=== PATIENT | male | born 1980 | race Caucasian/White ===

== ENCOUNTER 2016-11-30 02:59 | Inpatient (IN) | payer MEDICAID, OTHER ==
[~2016-11-30] VITALS: Ht 175.3 cm; Wt 63.6 kg
[2016-11-30] VITALS (10 sets, daily range): BP systolic 135–149; BP diastolic 87; PULSE 98–113; RESP 20–26; TEMP 99.6; Ht 175.3 cm; Wt 63.6 kg
[2016-11-30] MEDS ORDERED: ACETAMINOPHEN 650 MG SUPP PR STA (03:16)
--- NOTE | 2016-11-30 04:33 | ERD ---
ER Documentation Chief Complaint Chief Complaint МАРИНА FANG,FROM [facility],TRACH, HR 140' HPI 36-year-old male brought in by rescue from [facility]. Patient is trach to vent patient. Patient initially came in for an elevated heart rate. History is limited secondary to patient's baseline mental status. History per EMS run sheet [facility] transfer sheet. ROS All systems reviewed and are negative except as per history of present illness. Medications Home Meds Unable to Obtain Active Prescriptions or Reported Meds Allergies Allergies: Coded Allergies: No Known Allergy (Unverified , 11/30/16) PMhx/Soc History of Surgery: No Anesthesia Reaction: No Hx Neurological Disorder: Yes (ANOXIC BRAIN INJURY) Hx Respiratory Disorders: Yes (RESPIRATORY FAILURE,VENT DEPENDENT) Hx Cardiac Disorders: No Hx Psychiatric Problems: Yes (HEROIN OVERDOSE) Hx Miscellaneous Medical Probl: No Hx Substance Use: Yes (HEROIN) Hx Tobacco Use: No (UNABLE TO OBTAIN) Smoking Status: Unknown if ever smoked Physical Exam Vitals Vital Signs Date Time Temp Pulse Resp B/P Pulse Ox O2 Delivery O2 Flow Rate FiO2 11/30/16 03:09 101.3 128 31 140/97 100 11/30/16 03:00 128 32 100 100 Physical Exam Const: [] Head: Atraumatic Eyes: Normal Conjunctiva ENT: Trach site is clean dry and intact Neck: Full range of motion..~ No meningismus. Resp: Clear to auscultation bilaterally Cardio: Regular rate and rhythm, no murmurs Abd: Soft, non tender, non distended. Normal bowel sounds Skin: No petechiae or rashes Back: No midline or flank tenderness Ext: No cyanosis, or edema Neur: Awake and alert Psych: Normal Mood and Affect Result Diagram: 11/30/16 0300 11/30/16 0300 Results 24 hrs Laboratory Tests Test 11/30/16 03:00 White Blood Count 8.310^3/ul Red Blood Count 4.7310^6/ul Hemoglobin 14.9g/dl Hematocrit 43.8% Mean Corpuscular Volume 92.6fl Mean Corpuscular Hemoglobin 31.5pg Mean Corpuscular Hemoglobin Concent 34.0g/dl Red Cell Distribution Width 12.9% Platelet Count 28878^3/UL Mean Platelet Volume 9.7fl Neutrophils % 70.0% Lymphocytes % 17.6% Monocytes % 8.8% Eosinophils % 2.7% Basophils % 0.5% Nucleated Red Blood Cells % 0.0/100WBC Neutrophils # 5.810^3/ul Lymphocytes # 1.510^3/ul Monocytes # 0.710^3/ul Eosinophils # 0.210^3/ul Basophils # 0.010^3/ul Nucleated Red Blood Cells # 0.010^3/ul Prothrombin Time 13.3Sec Prothrombin Time Ratio 1.0 INR International Normalized Ratio 1.01 Activated Partial Thromboplast Time 26.4Sec Sodium Level 137mmol/L Potassium Level 4.3mmol/L Chloride Level 102mmol/L Carbon Dioxide Level 27mmol/L Anion Gap 12 Blood Urea Nitrogen 14mg/dl Creatinine 0.42mg/dl Glucose Level 123mg/dl Lactic Acid Level 1.9mmol/L Calcium Level 9.1mg/dl Total Bilirubin 0.2mg/dl Direct Bilirubin 0.00mg/dl Indirect Bilirubin 0.2mg/dl Aspartate Amino Transf (AST/SGOT) 24IU/L Alanine Aminotransferase (ALT/SGPT) 42IU/L Alkaline Phosphatase 115IU/L Troponin I Pending Total Protein 7.5g/dl Albumin 3.6g/dl Globulin 3.90g/dl Albumin/Globulin Ratio 0.92 Current Medications Medications (Trade) Dose Ordered Sig/Atif Route PRN Reason Start Time Stop Time Status Last Admin Dose Admin Acetaminophen (Tylenol Supp) 650 mg ONCE STAT [place] 11/30/16 03:16 11/30/16 03:18 DC Procedures/MDM EKG: Rate/Rhythm: [Normal Sinus Rhythm] QRS, ST, T-waves: [No changes consistent w/ acute ischemia] Impression: [No evidence of ischemia or arrhythmia] Chest X-ray 1V Interpreted by me: Soft Tissue: No acute abnormalities Bones: No acute abnormalities Mediastinum/Cardiac Silhouette/Lungs: [No acute abnormalities] Medical decision-making: Unfortunate patient comes in with tachycardia and hypoxia of unexplained origin. At this point patient will be admitted to telemetry to Dr. mart Departure Diagnosis: Primary Impression: Tachycardia Condition: Serious FLOWER NOBLEAlfreda Nov 30, 2016 04:33
--- NOTE | 2016-11-30 04:33 | ERD ---
ER Documentation Chief Complaint Chief Complaint МАРИНА FANG,FROM [facility],TRACH, HR 140' HPI 36-year-old male brought in by rescue from [facility]. Patient is trach to vent patient. Patient initially came in for an elevated heart rate. History is limited secondary to patient's baseline mental status. History per EMS run sheet [facility] transfer sheet. ROS All systems reviewed and are negative except as per history of present illness. Medications Home Meds Unable to Obtain Active Prescriptions or Reported Meds Allergies Allergies: Coded Allergies: No Known Allergy (Unverified , 11/30/16) PMhx/Soc History of Surgery: No Anesthesia Reaction: No Hx Neurological Disorder: Yes (ANOXIC BRAIN INJURY) Hx Respiratory Disorders: Yes (RESPIRATORY FAILURE,VENT DEPENDENT) Hx Cardiac Disorders: No Hx Psychiatric Problems: Yes (HEROIN OVERDOSE) Hx Miscellaneous Medical Probl: No Hx Substance Use: Yes (HEROIN) Hx Tobacco Use: No (UNABLE TO OBTAIN) Smoking Status: Unknown if ever smoked Physical Exam Vitals Vital Signs Date Time Temp Pulse Resp B/P Pulse Ox O2 Delivery O2 Flow Rate FiO2 11/30/16 03:09 101.3 128 31 140/97 100 11/30/16 03:00 128 32 100 100 Physical Exam Const: [] Head: Atraumatic Eyes: Normal Conjunctiva ENT: Trach site is clean dry and intact Neck: Full range of motion..~ No meningismus. Resp: Clear to auscultation bilaterally Cardio: Regular rate and rhythm, no murmurs Abd: Soft, non tender, non distended. Normal bowel sounds Skin: No petechiae or rashes Back: No midline or flank tenderness Ext: No cyanosis, or edema Neur: Awake and alert Psych: Normal Mood and Affect Result Diagram: 11/30/16 0300 11/30/16 0300 Results 24 hrs Laboratory Tests Test 11/30/16 03:00 White Blood Count 8.310^3/ul Red Blood Count 4.7310^6/ul Hemoglobin 14.9g/dl Hematocrit 43.8% Mean Corpuscular Volume 92.6fl Mean Corpuscular Hemoglobin 31.5pg Mean Corpuscular Hemoglobin Concent 34.0g/dl Red Cell Distribution Width 12.9% Platelet Count 52195^3/UL Mean Platelet Volume 9.7fl Neutrophils % 70.0% Lymphocytes % 17.6% Monocytes % 8.8% Eosinophils % 2.7% Basophils % 0.5% Nucleated Red Blood Cells % 0.0/100WBC Neutrophils # 5.810^3/ul Lymphocytes # 1.510^3/ul Monocytes # 0.710^3/ul Eosinophils # 0.210^3/ul Basophils # 0.010^3/ul Nucleated Red Blood Cells # 0.010^3/ul Prothrombin Time 13.3Sec Prothrombin Time Ratio 1.0 INR International Normalized Ratio 1.01 Activated Partial Thromboplast Time 26.4Sec Sodium Level 137mmol/L Potassium Level 4.3mmol/L Chloride Level 102mmol/L Carbon Dioxide Level 27mmol/L Anion Gap 12 Blood Urea Nitrogen 14mg/dl Creatinine 0.42mg/dl Glucose Level 123mg/dl Lactic Acid Level 1.9mmol/L Calcium Level 9.1mg/dl Total Bilirubin 0.2mg/dl Direct Bilirubin 0.00mg/dl Indirect Bilirubin 0.2mg/dl Aspartate Amino Transf (AST/SGOT) 24IU/L Alanine Aminotransferase (ALT/SGPT) 42IU/L Alkaline Phosphatase 115IU/L Troponin I Pending Total Protein 7.5g/dl Albumin 3.6g/dl Globulin 3.90g/dl Albumin/Globulin Ratio 0.92 Current Medications Medications (Trade) Dose Ordered Sig/Atif Route PRN Reason Start Time Stop Time Status Last Admin Dose Admin Acetaminophen (Tylenol Supp) 650 mg ONCE STAT [place] 11/30/16 03:16 11/30/16 03:18 DC Procedures/MDM EKG: Rate/Rhythm: [Normal Sinus Rhythm] QRS, ST, T-waves: [No changes consistent w/ acute ischemia] Impression: [No evidence of ischemia or arrhythmia] Chest X-ray 1V Interpreted by me: Soft Tissue: No acute abnormalities Bones: No acute abnormalities Mediastinum/Cardiac Silhouette/Lungs: [No acute abnormalities] Medical decision-making: Unfortunate patient comes in with tachycardia and hypoxia of unexplained origin. At this point patient will be admitted to telemetry to Dr. mart Departure Diagnosis: Primary Impression: Tachycardia Condition: Serious FLOWER NOBLEAlfreda Nov 30, 2016 04:33
--- NOTE | 2016-11-30 04:33 | ERD ---
ER Documentation Chief Complaint Chief Complaint МАРИНА FANG,FROM [facility],TRACH, HR 140' HPI 36-year-old male brought in by rescue from [facility]. Patient is trach to vent patient. Patient initially came in for an elevated heart rate. History is limited secondary to patient's baseline mental status. History per EMS run sheet senior living transfer sheet. ROS All systems reviewed and are negative except as per history of present illness. Medications Home Meds Unable to Obtain Active Prescriptions or Reported Meds Allergies Allergies: Coded Allergies: No Known Allergy (Unverified , 11/30/16) PMhx/Soc History of Surgery: No Anesthesia Reaction: No Hx Neurological Disorder: Yes (ANOXIC BRAIN INJURY) Hx Respiratory Disorders: Yes (RESPIRATORY FAILURE,VENT DEPENDENT) Hx Cardiac Disorders: No Hx Psychiatric Problems: Yes (HEROIN OVERDOSE) Hx Miscellaneous Medical Probl: No Hx Substance Use: Yes (HEROIN) Hx Tobacco Use: No (UNABLE TO OBTAIN) Smoking Status: Unknown if ever smoked Physical Exam Vitals Vital Signs Date Time Temp Pulse Resp B/P Pulse Ox O2 Delivery O2 Flow Rate FiO2 11/30/16 03:09 101.3 128 31 140/97 100 11/30/16 03:00 128 32 100 100 Physical Exam Const: [] Head: Atraumatic Eyes: Normal Conjunctiva ENT: Trach site is clean dry and intact Neck: Full range of motion..~ No meningismus. Resp: Clear to auscultation bilaterally Cardio: Regular rate and rhythm, no murmurs Abd: Soft, non tender, non distended. Normal bowel sounds Skin: No petechiae or rashes Back: No midline or flank tenderness Ext: No cyanosis, or edema Neur: Awake and alert Psych: Normal Mood and Affect Result Diagram: 11/30/16 0300 11/30/16 0300 Results 24 hrs Laboratory Tests Test 11/30/16 03:00 White Blood Count 8.310^3/ul Red Blood Count 4.7310^6/ul Hemoglobin 14.9g/dl Hematocrit 43.8% Mean Corpuscular Volume 92.6fl Mean Corpuscular Hemoglobin 31.5pg Mean Corpuscular Hemoglobin Concent 34.0g/dl Red Cell Distribution Width 12.9% Platelet Count 88380^3/UL Mean Platelet Volume 9.7fl Neutrophils % 70.0% Lymphocytes % 17.6% Monocytes % 8.8% Eosinophils % 2.7% Basophils % 0.5% Nucleated Red Blood Cells % 0.0/100WBC Neutrophils # 5.810^3/ul Lymphocytes # 1.510^3/ul Monocytes # 0.710^3/ul Eosinophils # 0.210^3/ul Basophils # 0.010^3/ul Nucleated Red Blood Cells # 0.010^3/ul Prothrombin Time 13.3Sec Prothrombin Time Ratio 1.0 INR International Normalized Ratio 1.01 Activated Partial Thromboplast Time 26.4Sec Sodium Level 137mmol/L Potassium Level 4.3mmol/L Chloride Level 102mmol/L Carbon Dioxide Level 27mmol/L Anion Gap 12 Blood Urea Nitrogen 14mg/dl Creatinine 0.42mg/dl Glucose Level 123mg/dl Lactic Acid Level 1.9mmol/L Calcium Level 9.1mg/dl Total Bilirubin 0.2mg/dl Direct Bilirubin 0.00mg/dl Indirect Bilirubin 0.2mg/dl Aspartate Amino Transf (AST/SGOT) 24IU/L Alanine Aminotransferase (ALT/SGPT) 42IU/L Alkaline Phosphatase 115IU/L Troponin I Pending Total Protein 7.5g/dl Albumin 3.6g/dl Globulin 3.90g/dl Albumin/Globulin Ratio 0.92 Current Medications Medications (Trade) Dose Ordered Sig/Atif Route PRN Reason Start Time Stop Time Status Last Admin Dose Admin Acetaminophen (Tylenol Supp) 650 mg ONCE STAT [place] 11/30/16 03:16 11/30/16 03:18 DC Procedures/MDM EKG: Rate/Rhythm: [Normal Sinus Rhythm] QRS, ST, T-waves: [No changes consistent w/ acute ischemia] Impression: [No evidence of ischemia or arrhythmia] Chest X-ray 1V Interpreted by me: Soft Tissue: No acute abnormalities Bones: No acute abnormalities Mediastinum/Cardiac Silhouette/Lungs: [No acute abnormalities] Medical decision-making: Unfortunate patient comes in with tachycardia and hypoxia of unexplained origin. At this point patient will be admitted to telemetry to Dr. mart Departure Diagnosis: Primary Impression: Tachycardia Condition: Serious FLOWER NOBLEAlfreda Nov 30, 2016 04:33
--- NOTE | 2016-11-30 05:19 | RADRPT ---
PROCEDURE: XR Chest. CLINICAL INDICATION: Sepsis TECHNIQUE: A single AP view of the chest was obtained. COMPARISON: None. FINDINGS: A tracheostomy tube is in place. No focal airspace opacification, pleural effusion or pneumothorax is seen. The cardiomediastinal si lhouette is within normal limits for size. The osseous structures demonstrate an old left mid clavi codi fracture. IMPRESSION: 1. No radiographic evidence of acute cardiopulmonary disease. 2. Tracheostomy tube in place RPTAT: HH .Tangela Pearce MD, MD Date Time Electronically viewed and signed by .Tangela Pearce MD, on 11/30/2016 05:18 .G/
[2016-11-30] MEDS ORDERED: NACL 0.9% 3 ML SYG IV SCH (06:30)
[2016-11-30] MEDS ORDERED: morphine 2 MG INJ IV PRN (06:30)
[2016-11-30] MEDS ORDERED: ONDANSETRON 4 MG INJ IV PRN (06:30)
[2016-11-30] MEDS ORDERED: ACETAMINOPHEN 650 MG SUPP PR PRN (06:30)
[2016-11-30] MEDS: SOD CHLORIDE 0.9% 1,000 ML IV SCH ×2 (06:32→20:01)
--- NOTE | 2016-11-30 07:26 | HP ---
Date/Time of Note Date/Time of Note DATE: 11/30/16 TIME: 07:19 Assessment/Plan VTE Prophylaxis VTE Prophylaxis Intervention: SCD's Assessment/Plan Assessment/Plan 1. Sepsis as evidenced by fever and tachycardia, suspect UTI -will be placed on IV antibiotic -Check UA, urine culture and respiratory culture from tracheal aspirate -ID consult -Differential diagnosis should be PE 2. Trach/vent dependent respiratory failure -Continue vent support -Pulmonary consult 3. Anoxic brain injury -Patient with a history of drug overdose -Continue supportive care HPI/ROS Admit Date/Time Admit Date/Time Hx of Present Illness This is a 36-year-old male with a history of heroin overdose, anoxic brain injury who is chronically trach/vent dependent who was sent from assisted living facility for tachycardia. Patient is not able to provide history and as such information is gathered from chart review and from the ER physician. When patient presented to the ER, he was tachycardic with a heart rate in the 120s and 130s and was febrile with a temperature of 101.3. Chest x-ray was no active disease. CBC and CMP are unremarkable. PMH/Family/Social Social History Smoking Status: Unknown if ever smoked Exam/Review of Systems Vital Signs Vitals Vital Signs Date Time Temp Pulse Resp B/P Pulse Ox O2 Delivery O2 Flow Rate FiO2 11/30/16 07:00 124 24 164/117 100 Mechanical Ventilator 11/30/16 06:00 99.8 11/30/16 05:10 60 Exam Constitutional: other (Trach to vent. No acute distress) Eyes: PERRL Respiratory: clear to auscultation, normal air movement Cardiovascular: other (Tachycardic with regular rhythm) Gastrointestinal: other (G-tube in place), soft Extremities: normal pulses Labs Result Diagram: 11/30/16 0300 11/30/16 0300 Medications Medications Current Medications Sodium Chloride (NS) 1,000 ml @ 75 mls/hr [id number] IV Last administered on t 06:32; Admin Dose 75 MLS/HR; Start 11/30/16 at 06:05; Stop 11/30/16 at 23:00 Ondansetron HCl (Zofran Inj) 4 mg Q6H PRN IV NAUSEA AND/OR VOMITING; Start at 06:30 Acetaminophen (Tylenol Tab) 650 mg Q6H PRN PO PAIN LEVEL 1-3 OR FEVER; Start 11/30/16 at 06:30 Acetaminophen (Tylenol Supp) 650 mg Q6H PRN [place] PAIN LEVEL 1-3 OR FEVER; Start 11/30/16 at 06:30 Morphine Sulfate (morphine) 2 mg Q4H PRN IV PAIN LEVEL 7-10; Start 11/30/16 at 06:30 Enoxaparin Sodium (Lovenox) 40 mg DAILY SC ; Start 11/30/16 at 09:00 Metoprolol Tartrate (Lopressor) 12.5 mg Q12 NGT ; Start 11/30/16 at 09:00 FLOWER CONDE MD Nov 30, 2016 07:26
[2016-11-30] MEDS: METOPROLOL 25 MG TAB NGT SCH ×3 (08:41→23:46)
[2016-11-30] MEDS: ENOXAPARIN 40 MG/0.4 ML SYG SC SCH (08:41)
[2016-11-30] MEDS ORDERED: PENDING SANTYL ORDER FOR WOUND CARE XX PRN (10:30)
[2016-11-30] MEDS ORDERED: CEFTRIAXONE 1 GM/50 ML (PMX) 50 ML IVPB SCH (11:00)
--- NOTE | 2016-11-30 18:14 | RADRPT ---
Echocardiogram Report Patient Name: BRENT SANON Gender: Male Date: 1980 Study Date: 30-Nov-2016 [employer] [place]: Vincenzo Kong RDCS Location: ER 4 Ref. Physician: FLOWER CONDE Quality: Technically Difficult Study Procedures: Transthoracic echocardiogram with complete 2D, M-Mode, and doppler examination. Indications: Tachycardia. 2D/M Mode Doppler Measurement Value Normal Ranges Measurement Value Normal Ranges LVIDd 2D 4.1 3.5 - 5.6 cm AV Peak Kade 1.5 m/sec LVIDs 2D 2.1 2.1 - 4.1 cm AV Peak PG 9.0 mmHg FS 2D 48.6 % LVOT Peak Kade 0.8 m/sec LVPWd 2D 1.3 0.6 - 1.1 cm LVOT Peak PG 2.0 mmHg IVSd 2D 1.2 0.6 - 1.1 cm MV E Peak Kade 0.5 m/sec IVS/LVPW 2D 0.9 MV A Peak Kade 0.8 m/sec AoR Diam 2D 3.3 2.0 - 3.7 cm MV E/A 0.6 LA/Ao 2D 1 0 - 1 MV Decel Time 113 msec EDV 2D 66.4 cm3 MV E/A 0.6 ESV 2D 9.0 cm3 TR Peak Kade 2.2 m/sec LA Dimen 2D 2.7 2.3 - 4.0 cm TR Peak PG 19.0 mmHg RVSP 22.0 mmHg Findings Left Ventricle: Normal left ventricular systolic function. Normal left ventricular cavity size. Normal left ventricular wall thickness. Ejection fraction is visually estimated at 6065 %. Right Ventricle: Normal right ventricular size. Normal right ventricular systolic function. Left Atrium: The left atrium is normal in size. Right Atrium: The right atrium is normal in size. Mitral Valve: Normal appearance and function of the mitral valve with trace physiologic regurgitation. Aortic Valve: Normal appearance of the aortic valve. No significant aortic stenosis or insufficiency. Tricuspid Valve: Normal appearance of the tricuspid valve. Estimated peak PA systolic pressure 22 mmHg. There is trace tricuspid regurgitation. Pulmonic Valve: Pulmonic valve not well visualized. Pericardium: Normal pericardium with no significant pericardial effusion. Aorta: Normal aortic root. IVC: Normal IVC with respiratory collapse, however patient on ventilator. Conclusions 1.The left ventricle is normal in size and systolic function. 2.Estimated left ventricular ejection fraction of 60-65%. Electronically Signed By: Rio Villaseñor 30-Nov-2016 18:13:08 -0700 Patient Name: BRENT SANON Study Date: 30-Nov-2016 [id number]
--- NOTE | 2016-11-30 18:14 | RADRPT ---
Echocardiogram Report Patient Name: BRENT SANON Gender: Male Date: 1980 Study Date: 30-Nov-2016 [employer]: Vincenzo Kong RDCS Location: ER 4 Ref. Physician: FLOWER CONDE Quality: Technically Difficult Study Procedures: Transthoracic echocardiogram with complete 2D, M-Mode, and doppler examination. Indications: Tachycardia. 2D/M Mode Doppler Measurement Value Normal Ranges Measurement Value Normal Ranges LVIDd 2D 4.1 3.5 - 5.6 cm AV Peak Kade 1.5 m/sec LVIDs 2D 2.1 2.1 - 4.1 cm AV Peak PG 9.0 mmHg FS 2D 48.6 % LVOT Peak Kade 0.8 m/sec LVPWd 2D 1.3 0.6 - 1.1 cm LVOT Peak PG 2.0 mmHg IVSd 2D 1.2 0.6 - 1.1 cm MV E Peak Kade 0.5 m/sec IVS/LVPW 2D 0.9 MV A Peak Kade 0.8 m/sec AoR Diam 2D 3.3 2.0 - 3.7 cm MV E/A 0.6 LA/Ao 2D 1 0 - 1 MV Decel Time 113 msec EDV 2D 66.4 cm3 MV E/A 0.6 ESV 2D 9.0 cm3 TR Peak Kade 2.2 m/sec LA Dimen 2D 2.7 2.3 - 4.0 cm TR Peak PG 19.0 mmHg RVSP 22.0 mmHg Findings Left Ventricle: Normal left ventricular systolic function. Normal left ventricular cavity size. Normal left ventricular wall thickness. Ejection fraction is visually estimated at 6065 %. Right Ventricle: Normal right ventricular size. Normal right ventricular systolic function. Left Atrium: The left atrium is normal in size. Right Atrium: The right atrium is normal in size. Mitral Valve: Normal appearance and function of the mitral valve with trace physiologic regurgitation. Aortic Valve: Normal appearance of the aortic valve. No significant aortic stenosis or insufficiency. Tricuspid Valve: Normal appearance of the tricuspid valve. Estimated peak PA systolic pressure 22 mmHg. There is trace tricuspid regurgitation. Pulmonic Valve: Pulmonic valve not well visualized. Pericardium: Normal pericardium with no significant pericardial effusion. Aorta: Normal aortic root. IVC: Normal IVC with respiratory collapse, however patient on ventilator. Conclusions 1.The left ventricle is normal in size and systolic function. 2.Estimated left ventricular ejection fraction of 60-65%. Electronically Signed By: Rio Villaseñor 30-Nov-2016 18:13:08 -0700 Patient Name: BRENT SANON Study Date: 30-Nov-2016 [id number]
--- NOTE | 2016-11-30 18:14 | RADRPT ---
Echocardiogram Report Patient Name: BRENT SANON Gender: Male Date: 1980 Study Date: 30-Nov-2016 [facility] Worker: Vincenzo Kong RDCS Location: ER 4 Ref. Physician: FLOWER CONDE Quality: Technically Difficult Study Procedures: Transthoracic echocardiogram with complete 2D, M-Mode, and doppler examination. Indications: Tachycardia. 2D/M Mode Doppler Measurement Value Normal Ranges Measurement Value Normal Ranges LVIDd 2D 4.1 3.5 - 5.6 cm AV Peak Kade 1.5 m/sec LVIDs 2D 2.1 2.1 - 4.1 cm AV Peak PG 9.0 mmHg FS 2D 48.6 % LVOT Peak Kade 0.8 m/sec LVPWd 2D 1.3 0.6 - 1.1 cm LVOT Peak PG 2.0 mmHg IVSd 2D 1.2 0.6 - 1.1 cm MV E Peak Kade 0.5 m/sec IVS/LVPW 2D 0.9 MV A Peak Kade 0.8 m/sec AoR Diam 2D 3.3 2.0 - 3.7 cm MV E/A 0.6 LA/Ao 2D 1 0 - 1 MV Decel Time 113 msec EDV 2D 66.4 cm3 MV E/A 0.6 ESV 2D 9.0 cm3 TR Peak Kade 2.2 m/sec LA Dimen 2D 2.7 2.3 - 4.0 cm TR Peak PG 19.0 mmHg RVSP 22.0 mmHg Findings Left Ventricle: Normal left ventricular systolic function. Normal left ventricular cavity size. Normal left ventricular wall thickness. Ejection fraction is visually estimated at 6065 %. Right Ventricle: Normal right ventricular size. Normal right ventricular systolic function. Left Atrium: The left atrium is normal in size. Right Atrium: The right atrium is normal in size. Mitral Valve: Normal appearance and function of the mitral valve with trace physiologic regurgitation. Aortic Valve: Normal appearance of the aortic valve. No significant aortic stenosis or insufficiency. Tricuspid Valve: Normal appearance of the tricuspid valve. Estimated peak PA systolic pressure 22 mmHg. There is trace tricuspid regurgitation. Pulmonic Valve: Pulmonic valve not well visualized. Pericardium: Normal pericardium with no significant pericardial effusion. Aorta: Normal aortic root. IVC: Normal IVC with respiratory collapse, however patient on ventilator. Conclusions 1.The left ventricle is normal in size and systolic function. 2.Estimated left ventricular ejection fraction of 60-65%. Electronically Signed By: Rio Villaseñor 30-Nov-2016 18:13:08 -0700 Patient Name: BRENT SANON Study Date: 30-Nov-2016 [id number]
--- NOTE | 2016-11-30 19:54 | RADRPT ---
PROCEDURE: XR Chest. CLINICAL INDICATION: Aspiration. TECHNIQUE: Single frontal view of the chest. COMPARISON: Today, about 15-1/2 hours ago. FINDINGS: Tracheostomy tube at midline. The cardiomediastinal silhouette is within normal limits. Pulmonary vascular markings are accentuate d by portable technique and patient body habitus. There is decreased lung inflation over the interva l. The lungs are otherwise clear. No signs of pleural fluid or pneumothorax are seen. The osseous st ructures and soft tissues are unremarkable. IMPRESSION: No evidence for active cardiopulmonary disease. RPTAT: [facility]U Physician Jose Date Time Electronically viewed and signed by Physician Jose on 11/30/2016 19:54 RS/
[2016-11-30] MEDS ORDERED: METOCLOPRAMIDE 10 MG INJ IV PRN (22:00)
[2016-11-30] MEDS ORDERED: LORAZEPAM 2 MG INJ IV ONE (22:00)
[2016-11-30] MEDS ORDERED: METHYLPREDNISOLONE 40 MG INJ IV ONE (22:00)
[2016-11-30] MEDS: PIPER-TAZO 3.375 GM IV (PMX) 100 ML IVPB SCH (23:47)
[2016-12-01] VITALS (23 sets, daily range): BP systolic 123–139; BP diastolic 69–89; PULSE 113–124; RESP 16–35
[2016-12-01] MEDS ORDERED: VANCOMYCIN IV PER PHARMACY XX SCH
[2016-12-01] MEDS ORDERED: VANCOMYCIN 1.25 GM in SOD CHLORIDE 0.9% 250 ML IVPB ONE (01:00)
[2016-12-01] MEDS: PIPER-TAZO 3.375 GM IV (PMX) 100 ML IVPB SCH ×3 (06:43→20:45)
[2016-12-01] MEDS: METOPROLOL 25 MG TAB NGT SCH ×2 (09:00→20:45)
[2016-12-01] MEDS: VANCOMYCIN 1 GM in NS 250 ML IVPB SCH ×3 (09:00→17:10)
[2016-12-01] MEDS: ENOXAPARIN 40 MG/0.4 ML SYG SC SCH (09:51)
--- NOTE | 2016-12-01 18:16 | PN ---
Date/Time of Note Date/Time of Note DATE: 12/01/16 TIME: 18:14 Assessment/Plan VTE Prophylaxis VTE Prophylaxis Intervention: LMWH Lines/Catheters IV Catheter Type (from Nrs): Peripheral IV Assessment/Plan Chief Complaint/Hosp Course 1. Sepsis secondary to staph bacteremia and UTI -Continue vancomycin and Zosyn -Follow-up on cultures -ID consult obtained 2. Trach/vent dependent respiratory failure -Continue vent support -Pulmonary consult 3. Anoxic brain injury -Patient with a history of drug overdose -Continue supportive care Prophylaxis: Lovenox Problems: Subjective 24 Hr Interval Summary Subjective hx not possible: pt non-verbal Exam/Review of Systems Vital Signs Vitals Vital Signs Date Time Temp Pulse Resp B/P Pulse Ox O2 Delivery O2 Flow Rate FiO2 12/01/16 17:00 116 20 98 45 12/01/16 15:37 98.5 130/84 11/30/16 13:51 Mechanical Ventilator Intake and Output 11/30/16 11/30/16 12/01/16 15:00 23:00 07:00 Intake Total 50 ml Output Total 400 ml 1200 ml Balance -400 ml -1150 ml Exam Constitutional: non-verbal Respiratory: clear to auscultation Cardiovascular: regular rate and rhythm Gastrointestinal: soft, No distended Musculoskeletal: nl extremities to inspection Results Result Diagram: 12/01/16 0549 12/01/16 0549 Results 24 hrs Laboratory Tests Test 11/30/16 19:00 12/01/16 05:49 Blood Gas Specimen Source Blood arterial Arterial Blood Date Drawn 11/30/2016 7:30:45 PM Arterial Blood pH (Temp corrected) 7.476 H Arterial Blood pCO2 (Temp correct) 33.4 L Arterial Blood pO2 (Temp corrected) 163.1 H Arterial Blood HCO3 24.1 Arterial Blood Base Excess 1.1 Arterial Blood Oxygen Saturation 99.0 H Jaciel Test ACCEPTAB Arterial Blood Gas Puncture Site Right Radial Arterial Blood Carboxyhemoglobin 0.3 Arterial Blood Methemoglobin 0.3 Blood Gas A-a O2 Differential 83.7 H Oxyhemoglobin Percent 98.4 Total Hemoglobin 13.3 Blood Gas Temperature 37.0 Blood Gas Respiration Rate 16.0 Blood Gas Actual Respiration Rate 22 Blood Gas Modality VENT - AC FiO2 40.0 Blood Gas Tidal Volume 500.0 Blood Gas Low PEEP Setting 5.0 Blood Gas Notified Whom MA Blood Gas Notified Time 11/30/2016 7:43:36 PM White Blood Count 10.1 # Red Blood Count 4.22 L Hemoglobin 12.9 L Hematocrit 39.0 L Mean Corpuscular Volume 92.4 Mean Corpuscular Hemoglobin 30.6 Mean Corpuscular Hemoglobin Concent 33.1 Red Cell Distribution Width 13.1 Platelet Count 418 #H Mean Platelet Volume 10.2 Neutrophils % 82.7 H Lymphocytes % 12.0 L Monocytes % 4.5 Eosinophils % 0.0 Basophils % 0.3 Nucleated Red Blood Cells % 0.0 Neutrophils # 8.3 H Lymphocytes # 1.2 Monocytes # 0.5 Eosinophils # 0.0 Basophils # 0.0 Nucleated Red Blood Cells # 0.0 Sodium Level 141 Potassium Level 4.0 Chloride Level 103 Carbon Dioxide Level 25 Anion Gap 17 H Blood Urea Nitrogen 12 Creatinine 0.44 L Glucose Level 132 Calcium Level 9.3 Magnesium Level 2.1 Total Bilirubin 0.5 Direct Bilirubin 0.00 Indirect Bilirubin 0.5 Aspartate Amino Transf (AST/SGOT) 23 Alanine Aminotransferase (ALT/SGPT) 42 Alkaline Phosphatase 107 Total Protein 7.8 Albumin 4.2 Globulin 3.60 H Albumin/Globulin Ratio 1.16 Thyroid Stimulating Hormone (TSH) 1.990 Medications Medications Current Medications Ondansetron HCl (Zofran Inj) 4 mg Q6H PRN IV NAUSEA AND/OR VOMITING Last administered on 11/30/16 21:12; Admin Dose 4 MG; Start 11/30/16 at 06:30 Acetaminophen (Tylenol Tab) 650 mg Q6H PRN PO PAIN LEVEL 1-3 OR FEVER; Start 11/30/16 at 06:30 Acetaminophen (Tylenol Supp) 650 mg Q6H PRN [place] PAIN LEVEL 1-3 OR FEVER; Start 11/30/16 at 06:30 Morphine Sulfate (morphine) 2 mg Q4H PRN IV PAIN LEVEL 7-10; Start 11/30/16 at 06:30 Enoxaparin Sodium (Lovenox) 40 mg DAILY SC Last administered on 12/01/16 09: 51; Admin Dose 40 MG; Start 11/30/16 at 09:00 Metoprolol Tartrate (Lopressor) 12.5 mg Q12 NGT Last administered on 23:46; Admin Dose 12.5 MG; Start 11/30/16 at 09:00 Miscellaneous Information This patient franklin... PRN PRN XX WOUND CARE; Start at 10:30 Piperacillin Sod/ Tazobactam Sod (Zosyn 3.375gm/ 100 ml (Pmx)) 100 ml @ 200 mls /hr Q6 IVPB Last administered on 12/01/16 14:50; Admin Dose 200 MLS/HR; Start 12/01/16 at 00:00 Metoclopramide HCl 10 mg 10 mg Q6H PRN IV N/V Last administered on 11/30/16 22:48; Admin Dose 10 MG; Start 11/30/16 at 22:00 Vancomycin HCl (Vancocin) 250 ml @ 83.333 mls/ hr Q8H IVPB Last administered on 12/01/16 17:10; Admin Dose 83.333 MLS/HR; Start 12/01/16 at 09:00 Influenza Virus Vaccine (Fluzone) 0.5 ml ONCE ONCE IM* ; Start 12/02/16 at 09: 00; Stop 12/02/16 at 09:01 MONAE GANT Dec 01, 2016 18:16
[2016-12-02] VITALS (26 sets, daily range): BP systolic 100–142; BP diastolic 65–93; PULSE 92–151; RESP 16–36
[2016-12-02] MEDS: PIPER-TAZO 3.375 GM IV (PMX) 100 ML IVPB SCH ×4 (01:32→17:23)
[2016-12-02] MEDS: ACETAMINOPHEN 325 MG TAB PO PRN ×2 (04:28→16:35)
[2016-12-02] MEDS ORDERED: LORAZEPAM 2 MG INJ IV ONE (04:30)
[2016-12-02] MEDS ORDERED: DILTIAZEM 25 MG INJ IV ONE (04:30)
[2016-12-02] MEDS ORDERED: INFLUENZA VIRUS VACCINE 0.5 ML (DISPENSING) IM* ONE (09:00)
[2016-12-02] MEDS: METOPROLOL 25 MG TAB NGT SCH ×2 (09:31→20:41)
[2016-12-02] MEDS: ENOXAPARIN 40 MG/0.4 ML SYG SC SCH (09:40)
--- NOTE | 2016-12-02 11:07 | CONS ---
Date/Time of Note Date/Time of Note DATE: 12/02/16 TIME: 10:50 Assessment/Plan Assessment/Plan Chief Complaint/Hosp Course Summary Assessment and Plan: Assessment: Anoxic brain injury/ secondary to drug overdose Dysphagia- needing PEG for TF- not tolerating R/o ileus vs obstruction Sepsis secondary to staph bacteremia and UTI- on antibiotics Trach/vent dependent respiratory failure Plan: Keep NPO KUB to r/o ileus Patient seen in collaboration with Chief Complaint/Reason for Visit: Functioning PEG History of Present Illness: This is a 36 year old male with history of anoxic brain injury secondary to heroin overdose, respiratory failure trach/vent dependent admitted to [facility] for sepsis/UTI. Pt with dysphagia and previous g-tube. Some concerns for malfunction of peg. Spoke with nurse who stated significant residual x2 days ago , patient has not had TF since. Upon evaluation, g-tube appears intact, with small amount of bile noted with aspiration. BS present, will order KUB to r/o obstruction, if negative will start TF and assess closely for evidence of intolerance. Past Medical History: Anoxic brain injury secondary to heroin overdose Trach/vent dependent Allergies: No known allergies Family History: Unable to assess Social History: History of heroin use PHYSICAL EXAMINATION: GENERAL: Well developed, well nourished, alert, non-verbal SKIN: No lesions, no stigmata chronic liver disease, no evidence of bleeding diathesis LYMPHATIC: No palpable lymphadenopathy. HEAD: Normocephalic, atraumatic, no tenderness. EYES: Pupils equal reactive to light and accommodation, full extraocular movements, sclera clear, non-icteric, no discharge. EARS/NOSE AND THROAT: Ears normal, nose normal, oropharynx normal, oral membranes well hydrated without lesions. NECK: Supple, no masses, thyroid normal, JVP within normal limits, carotids normal without bruits. CHEST: Inspection within normal limits. CARDIOVASCULAR: Heart: Regular rate and rhythm, no murmurs, gallops or rubs. Peripheral pulses present within normal limits, no cyanosis, clubbing or edemas. No pulsatile abdominal mass RESPIRATORY: Lungs clear to auscultation, trach vent- dependent GASTROINTESTINAL AND LIVER: Abdomen: Soft, non tenderness, non-distended, no hernias, no masses, no organomegaly, no ascites, no guarding, no rebound tenderness, normoactive bowel sounds. g-tube Rectal: Deferred. GENITOURINARY: Male genitalia within normal limits, FC in place EXTREMITIES: No cyanosis, clubbing or edema. Problems: Consultation Date/Type/Reason Admit Date/Time Date of Consultation: Dec 02, 2016 Type of Consultation: GI Reason for Consultation Peg malfunction Subjective hx not possible: pt non-verbal Past Medical History Medical History: other (Anoxic brain injury, trach/vent dependent) Past Surgical History Past Surgical Hx: other (Unable to assess) Family History Significant Family History: other (Unable to assess) Social History Smoking Status: Unknown if ever smoked Drug Use: heroin (history of) Exam/Review of Systems Vital Signs Vitals Vital Signs Date Time Temp Pulse Resp B/P Pulse Ox O2 Delivery O2 Flow Rate FiO2 12/02/16 09:15 109 20 98 35 12/02/16 08:20 99.0 133/82 11/30/16 13:51 Mechanical Ventilator Intake and Output 12/01/16 12/01/16 12/02/16 15:00 23:00 07:00 Intake Total 100 ml 100 ml Output Total 800 ml 700 ml Balance -700 ml -600 ml Exam Constitutional: alert Results Result Diagram: 12/02/16 0652 12/02/16 0652 Results 24 hrs Laboratory Tests Test 12/02/16 04:02 12/02/16 06:52 Bedside Glucose 115 White Blood Count 8.2 Red Blood Count 4.03 L Hemoglobin 12.3 L Hematocrit 37.8 L Mean Corpuscular Volume 93.8 Mean Corpuscular Hemoglobin 30.5 Mean Corpuscular Hemoglobin Concent 32.5 Red Cell Distribution Width 13.4 Platelet Count 394 Mean Platelet Volume 9.5 Neutrophils % 67.2 Lymphocytes % 22.8 Monocytes % 8.3 Eosinophils % 0.7 Basophils % 0.6 Nucleated Red Blood Cells % 0.0 Neutrophils # 5.5 Lymphocytes # 1.9 Monocytes # 0.7 Eosinophils # 0.1 Basophils # 0.1 Nucleated Red Blood Cells # 0.0 Sodium Level 147 H Potassium Level 3.3 L Chloride Level 110 Carbon Dioxide Level 27 Anion Gap 13 Blood Urea Nitrogen 18 Creatinine 0.54 L Glucose Level 115 Calcium Level 9.5 Medications Medications Current Medications Ondansetron HCl (Zofran Inj) 4 mg Q6H PRN IV NAUSEA AND/OR VOMITING Last administered on 11/30/16 21:12; Admin Dose 4 MG; Start 10/25/17 at 06:30 Acetaminophen (Tylenol Tab) 650 mg Q6H PRN PO PAIN LEVEL 1-3 OR FEVER Last administered on 12/02/16 04:28; Admin Dose 650 MG; Start 11/30/16 at 06:30 Acetaminophen (Tylenol Supp) 650 mg Q6H PRN [place] PAIN LEVEL 1-3 OR FEVER; Start 11/30/16 at 06:30 Morphine Sulfate (morphine) 2 mg Q4H PRN IV PAIN LEVEL 7-10; Start 11/30/16 at 06:30 Enoxaparin Sodium (Lovenox) 40 mg DAILY SC Last administered on 12/02/16 09: 40; Admin Dose 40 MG; Start 11/30/16 at 09:00 Metoprolol Tartrate (Lopressor) 12.5 mg Q12 NGT Last administered on 09:31; Admin Dose 12.5 MG; Start 11/30/16 at 09:00 Miscellaneous Information This patient franklin... PRN PRN XX WOUND CARE; Start at 10:30 Piperacillin Sod/ Tazobactam Sod (Zosyn 3.375gm/ 100 ml (Pmx)) 100 ml @ 200 mls /hr Q6 IVPB Last administered on 12/02/16 06:42; Admin Dose 200 MLS/HR; Start 12/01/16 at 00:00 Metoclopramide HCl 10 mg 10 mg Q6H PRN IV N/V Last administered on 11/30/16 22:48; Admin Dose 10 MG; Start 11/30/16 at 22:00 Vancomycin HCl 250 ml @ 83.333 mls/ hr Q8H IVPB Last administered on 17:10; Admin Dose 83.333 MLS/HR; Start 12/01/16 at 09:00; Status Future Hold Potassium Chloride/Dextrose (D5W + KCl 20 Meq) 1,000 ml @ 100 mls/hr Q10H IV ; Start 12/02/16 at 10:30 Copies To: CC: ATILIO MINA MD, VICTORIA Dec 02, 2016 11:06
[2016-12-02] MEDS: D5W + KCL 20 MEQ 1,000 ML IV SCH ×2 (11:37→22:32)
--- NOTE | 2016-12-02 11:46 | CONS ---
Date/Time of Note Date/Time of Note DATE: 12/02/16 TIME: 11:43 Assessment/Plan Assessment/Plan Additional Assessment/Plan Ventilator setting; AC of 16, tidal volume 500, PEEP of 5, 35% FiO2. Assessment and recommendations; 1. Patient admitted with severe UTI currently on appropriate antibiotic regimen. 2. Essentially clear chest x-ray. 3. Stable hypertension. 4. Stable respiratory failure. 5. Status post severe anoxic brain injury, patient in an essentially vegetative state. Continue current treatment. Consultation Date/Type/Reason Admit Date/Time Date of Consultation: Dec 02, 2016 Type of Consultation: Pulmonary Reason for Consultation Pulmonary consultation requested for evaluation of chronic respiratory failure. Patient admitted for sepsis from UTI. Next History of presenting illness; patient is a 36-year-old male who was admitted yesterday with complaints of fever at the [place] [facility]. Upon evaluation further workup was done including a urine analysis which is grossly positive for infection. Chest x-ray also was done which is unremarkable. Patient has been admitted to the medical floor and started on appropriate antibiotic regimen. Due to advanced anoxic brain injury, patient was unable to give any history whatsoever and history was obtained from medical records. Past medical history; 1. Patient with history of severe anoxic brain injury. 2. Chronic respiratory failure. 3. Hypertension. 4. Status post tracheostomy and G-tube placement. Medications; reviewed. Allergies; none. Social history, family history, occupational histories are not available. Review of systems; unable to be obtained. General exam; young male, on ventilator via tracheostomy, unresponsive, currently in no distress. Past Medical History Medical History: other (Anoxic brain injury, trach/vent dependent) Past Surgical History Past Surgical Hx: other (Unable to assess) Social History Smoking Status: Unknown if ever smoked Drug Use: heroin (history of) Exam/Review of Systems Vital Signs Vitals Vital Signs Date Time Temp Pulse Resp B/P Pulse Ox O2 Delivery O2 Flow Rate FiO2 12/02/16 09:15 109 20 98 35 12/02/16 08:20 99.0 133/82 11/30/16 13:51 Mechanical Ventilator Intake and Output 12/01/16 12/01/16 12/02/16 15:00 23:00 07:00 Intake Total 100 ml 100 ml Output Total 800 ml 700 ml Balance -700 ml -600 ml Exam HEENT exam; supple neck, no JVD. No lymphadenopathy. Midline trachea. No thyromegaly. Patient has fair dentition. Tracheostomy in place. Insertion site is clean. Chest exam; clear to auscultation. S1-S2 audible, no murmurs. Regular rhythm. Abdomen exam; soft, nondistended. G-tube in place. Bowel sounds audible. No organomegaly. Extremity exam; no peripheral edema. FLUX TUBE ATTENDANT exam; patient is unresponsive. Results Result Diagram: 12/02/1652 12/02/16651 Results 24 hrs Laboratory Tests Test 12/02/16 04:02 12/02/16 06:52 Bedside Glucose 115 White Blood Count 8.2 Red Blood Count 4.03 L Hemoglobin 12.3 L Hematocrit 37.8 L Mean Corpuscular Volume 93.8 Mean Corpuscular Hemoglobin 30.5 Mean Corpuscular Hemoglobin Concent 32.5 Red Cell Distribution Width 13.4 Platelet Count 394 Mean Platelet Volume 9.5 Neutrophils % 67.2 Lymphocytes % 22.8 Monocytes % 8.3 Eosinophils % 0.7 Basophils % 0.6 Nucleated Red Blood Cells % 0.0 Neutrophils # 5.5 Lymphocytes # 1.9 Monocytes # 0.7 Eosinophils # 0.1 Basophils # 0.1 Nucleated Red Blood Cells # 0.0 Sodium Level 147 H Potassium Level 3.3 L Chloride Level 110 Carbon Dioxide Level 27 Anion Gap 13 Blood Urea Nitrogen 18 Creatinine 0.54 L Glucose Level 115 Calcium Level 9.5 Medications Medications Current Medications Ondansetron HCl (Zofran Inj) 4 mg Q6H PRN IV NAUSEA AND/OR VOMITING Last administered on 11/30/16 21:12; Admin Dose 4 MG; Start 11/30/16 at 06:30 Acetaminophen (Tylenol Tab) 650 mg Q6H PRN PO PAIN LEVEL 1-3 OR FEVER Last administered on 12/02/16 04:28; Admin Dose 650 MG; Start 11/30/16 at 06:30 Acetaminophen (Tylenol Supp) 650 mg Q6H PRN [place] PAIN LEVEL 1-3 OR FEVER; Start 11/30/16 at 06:30 Morphine Sulfate (morphine) 2 mg Q4H PRN IV PAIN LEVEL 7-10; Start 11/30/16 at 06:30 Enoxaparin Sodium (Lovenox) 40 mg DAILY SC Last administered on 12/02/16 09: 40; Admin Dose 40 MG; Start 11/30/16 at 09:00 Metoprolol Tartrate (Lopressor) 12.5 mg Q12 NGT Last administered on 09:31; Admin Dose 12.5 MG; Start 11/30/16 at 09:00 Miscellaneous Information This patient franklin... PRN PRN XX WOUND CARE; Start at 10:30 Piperacillin Sod/ Tazobactam Sod (Zosyn 3.375gm/ 100 ml (Pmx)) 100 ml @ 200 mls /hr Q6 IVPB Last administered on 12/02/16 06:42; Admin Dose 200 MLS/HR; Start 12/01/16 at 00:00 Metoclopramide HCl 10 mg 10 mg Q6H PRN IV N/V Last administered on 11/30/16 22:48; Admin Dose 10 MG; Start 11/30/16 at 22:00 Vancomycin HCl 250 ml @ 83.333 mls/ hr Q8H IVPB Last administered on 17:10; Admin Dose 83.333 MLS/HR; Start 12/01/16 at 09:00; Status Future Hold Potassium Chloride/Dextrose (D5W + KCl 20 Meq) 1,000 ml @ 100 mls/hr Q10H IV Last administered on 12/02/16 11:37; Admin Dose 100 MLS/HR; Start 12/02/16 at 10:30 DERICK ROBLEDO Dec 02, 2016 11:46
--- NOTE | 2016-12-02 12:07 | PN ---
Date/Time of Note Date/Time of Note DATE: 12/02/16 TIME: 12:05 Assessment/Plan VTE Prophylaxis VTE Prophylaxis Intervention: LMWH Lines/Catheters IV C[facility]ter Type (from [facility]): Peripheral IV Assessment/Plan Chief Complaint/Hosp Course 1. Sepsis secondary to staph bacteremia and UTI from ESBL E. coli and Pseudomonas -Continue vancomycin and Zosyn -Follow-up on cultures -ID consult obtained 2. Trach/vent dependent respiratory failure -Continue vent support -Pulmonary consult 3. Anoxic brain injury -Patient with a history of drug overdose -Continue supportive care 4. PEG tube malfunction GI consultation appreciated Prophylaxis: Lovenox Problems: Subjective 24 Hr Interval Summary Subjective hx not possible: pt non-verbal Exam/Review of Systems Vital Signs Vitals Vital Signs Date Time Temp Pulse Resp B/P Pulse Ox O2 Delivery O2 Flow Rate FiO2 12/02/16 09:15 109 20 98 35 12/02/16 08:20 99.0 133/82 11/30/16 13:51 Mechanical Ventilator Intake and Output 12/01/16 12/01/16 12/02/16 15:00 23:00 07:00 Intake Total 100 ml 100 ml Output Total 800 ml 700 ml Balance -700 ml -600 ml Exam Constitutional: non-verbal Respiratory: clear to auscultation Cardiovascular: regular rate and rhythm Gastrointestinal: soft, No distended Musculoskeletal: nl extremities to inspection Results Result Diagram: 12/02/16 0652 12/02/16 0652 Results 24 hrs Laboratory Tests Test 12/02/16 04:02 12/02/16 06:52 Bedside Glucose 115 White Blood Count 8.2 Red Blood Count 4.03 L Hemoglobin 12.3 L Hematocrit 37.8 L Mean Corpuscular Volume 93.8 Mean Corpuscular Hemoglobin 30.5 Mean Corpuscular Hemoglobin Concent 32.5 Red Cell Distribution Width 13.4 Platelet Count 394 Mean Platelet Volume 9.5 Neutrophils % 67.2 Lymphocytes % 22.8 Monocytes % 8.3 Eosinophils % 0.7 Basophils % 0.6 Nucleated Red Blood Cells % 0.0 Neutrophils # 5.5 Lymphocytes # 1.9 Monocytes # 0.7 Eosinophils # 0.1 Basophils # 0.1 Nucleated Red Blood Cells # 0.0 Sodium Level 147 H Potassium Level 3.3 L Chloride Level 110 Carbon Dioxide Level 27 Anion Gap 13 Blood Urea Nitrogen 18 Creatinine 0.54 L Glucose Level 115 Calcium Level 9.5 Medications Medications Current Medications Ondansetron HCl (Zofran Inj) 4 mg Q6H PRN IV NAUSEA AND/OR VOMITING Last administered on 11/30/16 21:12; Admin Dose 4 MG; Start 11/30/16 at 06:30 Acetaminophen (Tylenol Tab) 650 mg Q6H PRN PO PAIN LEVEL 1-3 OR FEVER Last administered on 12/02/16 04:28; Admin Dose 650 MG; Start 11/30/16 at 06:30 Acetaminophen (Tylenol Supp) 650 mg Q6H PRN [place] PAIN LEVEL 1-3 OR FEVER; Start 11/30/16 at 06:30 Morphine Sulfate (morphine) 2 mg Q4H PRN IV PAIN LEVEL 7-10; Start 11/30/16 at 06:30 Enoxaparin Sodium (Lovenox) 40 mg DAILY SC Last administered on 12/02/16 09: 40; Admin Dose 40 MG; Start 11/30/16 at 09:00 Metoprolol Tartrate (Lopressor) 12.5 mg Q12 NGT Last administered on 09:31; Admin Dose 12.5 MG; Start 11/30/16 at 09:00 Miscellaneous Information This patient franklin... PRN PRN XX WOUND CARE; Start at 10:30 Piperacillin Sod/ Tazobactam Sod (Zosyn 3.375gm/ 100 ml (Pmx)) 100 ml @ 200 mls /hr Q6 IVPB Last administered on 12/02/16 06:42; Admin Dose 200 MLS/HR; Start 12/01/16 at 00:00 Metoclopramide HCl 10 mg 10 mg Q6H PRN IV N/V Last administered on 11/30/16 22:48; Admin Dose 10 MG; Start 11/30/16 at 22:00 Vancomycin HCl 250 ml @ 83.333 mls/ hr Q8H IVPB Last administered on 17:10; Admin Dose 83.333 MLS/HR; Start 12/01/16 at 09:00; Status Future Hold Potassium Chloride/Dextrose (D5W + KCl 20 Meq) 1,000 ml @ 100 mls/hr Q10H IV Last administered on 12/02/16 11:37; Admin Dose 100 MLS/HR; Start 12/02/16 at 10:30 MONAE GANT Dec 02, 2016 12:07
[2016-12-02] MEDS ORDERED: SOD CHLORIDE 0.9% 1,000 ML IV SCH (13:00)
--- NOTE | 2016-12-02 13:04 | CONS ---
Date/Time of Note Date/Time of Note DATE: 12/02/16 TIME: 12:56 Assessment/Plan Assessment/Plan Chief Complaint/Hosp Course Assessment: Sinus tachycardia - physiologic Hypertension Sepsis secondary to urinary tract infection - on antibiotics History of anoxic brain injury Chronic ventilator-dependent respiratory failure Hypokalemia Recommendations: -increase metoprolol to 25mg BID -replace potassium -intravenous fluid hydration Problems: Consultation Date/Type/Reason Admit Date/Time Type of Consultation: Cardiology Reason for Consultation tachycardia Referring Provider: FLOWER CONDE MD Hx of Present Illness The patient is a 36 year-old male with history of anoxic brain injury secondary to heroin overdose and chronic ventilator-dependent respiratory failure who presented with tachycardia and fever secondary to sepsis from urinary tract infection. EKG showed sinus tachycardia without other abnormalities. Troponins have been negative x 3. Transthoracic echocardiogram showed normal LVEF 60-65%. Unable to obtain review of systems due to patient's mental status. Past Medical History Anoxic brain injury Chronic ventilator-dependent respiratory failure Past Surgical History Tracheostomy Gastrostomy tube Family History Significant Family History: other (unable to obtain) Social History unable to obtain Exam/Review of Systems Vital Signs Vitals Vital Signs Date Time Temp Pulse Resp B/P Pulse Ox O2 Delivery O2 Flow Rate FiO2 12/02/16 12:52 97.6 113 22 130/82 100 12/02/16 09:15 35 11/30/16 13:51 Mechanical Ventilator Intake and Output 12/01/16 12/01/16 12/02/16 15:00 23:00 07:00 Intake Total 100 ml 100 ml Output Total 800 ml 700 ml Balance -700 ml -600 ml Exam Constitutional: non-verbal, No alert Psych: No nl mood/affect, No no complaints Head: atraumatic, normocephalic Eyes: nl conjunctiva, nl lids ENMT: nl external ears & nose, nl nasal mucosa & septum Neck: other (tracheostomy), No jvd Respiratory: diminished breath sounds, No crackles/rales Cardiovascular: No murmurs/extra sounds, No regular rate and rhythm ( tachycardic) Gastrointestinal: other (gastrostomy tube), soft Musculoskeletal: other (contractures) Extremities: No clubbing, No cyanosis, No edema Neurological: No nl mental status, No nl speech Results Result Diagram: 12/02/16 0652 12/02/16 0652 Results 24 hrs Laboratory Tests Test 12/02/16 04:02 12/02/16 06:52 Bedside Glucose 115 White Blood Count 8.2 Red Blood Count 4.03 L Hemoglobin 12.3 L Hematocrit 37.8 L Mean Corpuscular Volume 93.8 Mean Corpuscular Hemoglobin 30.5 Mean Corpuscular Hemoglobin Concent 32.5 Red Cell Distribution Width 13.4 Platelet Count 394 Mean Platelet Volume 9.5 Neutrophils % 67.2 Lymphocytes % 22.8 Monocytes % 8.3 Eosinophils % 0.7 Basophils % 0.6 Nucleated Red Blood Cells % 0.0 Neutrophils # 5.5 Lymphocytes # 1.9 Monocytes # 0.7 Eosinophils # 0.1 Basophils # 0.1 Nucleated Red Blood Cells # 0.0 Sodium Level 147 H Potassium Level 3.3 L Chloride Level 110 Carbon Dioxide Level 27 Anion Gap 13 Blood Urea Nitrogen 18 Creatinine 0.54 L Glucose Level 115 Calcium Level 9.5 Medications Medications Current Medications Ondansetron HCl (Zofran Inj) 4 mg Q6H PRN IV NAUSEA AND/OR VOMITING Last administered on 11/30/16 21:12; Admin Dose 4 MG; Start 11/30/16 at 06:30 Acetaminophen (Tylenol Tab) 650 mg Q6H PRN PO PAIN LEVEL 1-3 OR FEVER Last administered on 12/02/16 04:28; Admin Dose 650 MG; Start 11/30/16 at 06:30 Acetaminophen (Tylenol Supp) 650 mg Q6H PRN [place] PAIN LEVEL 1-3 OR FEVER; Start 11/30/16 at 06:30 Morphine Sulfate (morphine) 2 mg Q4H PRN IV PAIN LEVEL 7-10; Start 11/30/16 at 06:30 Enoxaparin Sodium (Lovenox) 40 mg DAILY SC Last administered on 12/02/16 09: 40; Admin Dose 40 MG; Start 11/30/16 at 09:00 Metoprolol Tartrate (Lopressor) 12.5 mg Q12 NGT Last administered on 09:31; Admin Dose 12.5 MG; Start 11/30/16 at 09:00 Miscellaneous Information This patient franklin... PRN PRN XX WOUND CARE; Start at 10:30 Piperacillin Sod/ Tazobactam Sod (Zosyn 3.375gm/ 100 ml (Pmx)) 100 ml @ 200 mls /hr Q6 IVPB Last administered on 12/02/16 12:48; Admin Dose 200 MLS/HR; Start 12/01/16 at 00:00 Metoclopramide HCl 10 mg 10 mg Q6H PRN IV N/V Last administered on 11/30/16 22:48; Admin Dose 10 MG; Start 11/30/16 at 22:00 Vancomycin HCl 250 ml @ 83.333 mls/ hr Q8H IVPB Last administered on 17:10; Admin Dose 83.333 MLS/HR; Start 12/01/16 at 09:00; Status Future Hold Potassium Chloride/Dextrose (D5W + KCl 20 Meq) 1,000 ml @ 100 mls/hr Q10H IV Last administered on 12/02/16 11:37; Admin Dose 100 MLS/HR; Start 12/02/16 at 10:30 CARMINA LI MD Dec 02, 2016 13:04
--- NOTE | 2016-12-02 14:14 | CONS ---
DATE OF ADMISSION: 11/30/2016 DATE OF CONSULTATION: 12/02/2016 TYPE OF CONSULTATION: Infectious Disease. REASON FOR CONSULTATION: Antibiotic management. HISTORY OF PRESENT ILLNESS: Rod Amaya is a 36-year-old male with a history of heroin overdose an d anoxic brain injury who comes in now for evaluation of sepsis. PAST PROBLEMS INCLUDE: 1. Anoxic brain injury. 2. Status post tracheostomy for Ventilator dependent respiratory failure. 3. G-tube placement for dysphagia. Acutely, the patient comes in with tachycardia with heart rate in the 120s and 130s, was febrile to 101.3. Chest x-ray shows no active disease. His white count was 8.3, H and H of 14.9 and 43.8, brittany telet count 344,000. BUN and creatinine 14/0.42, glucose 123. The patient was felt to be septic. White count today is 8.2, BUN and creatinine 18/0.54. Urine is 2+ leukocyte esterase, 159 white blake ls per high-power field. His blood cultures x2 were positive for Staph epidermidis coagulase negati ve staph and his urine is positive for E. coli ESBL and for Pseudomonas aeruginosa which is sensitiv e to multiple agents. Chest x-ray shows no evidence for cardiopulmonary disease, marked lung inflat ion. Tracheostomy tube in place. PAST MEDICAL HISTORY: Operations as outlined. FAMILY HISTORY: Noncontributory. SOCIAL HISTORY: Does not smoke, drink or abuse drugs. He lives in a senior living facility. ALLERGIES: NONE TO PENICILLIN, SULFA OR FOODS. MEDICATIONS: Per chart. REVIEW OF SYSTEMS: Noncontributory. PHYSICAL EXAMINATION: GENERAL: The patient is a well-developed, well-nourished, chronically ill-appearing male who has an oxic brain damage. VITAL SIGNS: Showed tachycardia but no fever. SKIN: Without generalized rash. HEENT: Within normal limits. NECK: Shows a tracheostomy and ventilator. LYMPH NODES: None palpable. CHEST: Decreased breath sounds at the bases. HEART: Tachycardic without murmur or gallop. ABDOMEN: Soft, nontender, without organosplenomegaly or masses. G-tube in place. EXTREMITIES: Without cyanosis, clubbing, or edema. RECTAL AND GENITAL: Deferred. NEUROLOGIC: The patient has anoxic brain damage. IMPRESSION AND PLAN: The patient has a urinary tract infection with Pseudomonas aeruginosa and Esch erichia coli extended-spectrum beta-lactamases. He is currently on Zosyn to which the organism is s ensitive and he is also on vancomycin or staph epi in the blood. We should repeat his blood culture s. I will dictate my findings to the hospitalist and to dash Torres. Dictated By: JOHN COWART MD, JD/BRANDAN Conf#: [id number] DID#: [id number]
--- NOTE | 2016-12-02 17:01 | RADRPT ---
PROCEDURE: XR Abdomen. CLINICAL INDICATION: Abdomen pain. TECHNIQUE: AP supine abdomen x-ray. COMPARISON: None. FINDINGS: The bowel gas pattern is normal with no evidence of obstruction. A gastrostomy tube overlies the stomach. There are no abnormal calcifications overlying the urinary tracts. The osseus structures are unremarkable. IMPRESSION: 1. Gastrostomy tube. 2. No evidence of obstruction. RPTAT: QQ .Jass Gomez MD, MD Date Time Electronically viewed and signed by .Jass Gomez MD, on 12/02/2016 17:01 .R/
[2016-12-02] MEDS: VANCOMYCIN 1 GM in NS 250 ML IVPB SCH (22:31)
[2016-12-03] VITALS (24 sets, daily range): BP systolic 122–144; BP diastolic 73–96; PULSE 95–103; RESP 15–29
[2016-12-03] MEDS: PIPER-TAZO 3.375 GM IV (PMX) 100 ML IVPB SCH ×3 (00:47→12:04)
[2016-12-03] MEDS: VANCOMYCIN 1 GM in NS 250 ML IVPB SCH ×3 (05:05→21:30)
[2016-12-03] MEDS: ENOXAPARIN 40 MG/0.4 ML SYG SC SCH (09:17)
[2016-12-03] MEDS: METOPROLOL 25 MG TAB NGT SCH ×2 (09:18→20:23)
--- NOTE | 2016-12-03 12:06 | PN ---
Date/Time of Note Date/Time of Note DATE: 12/03/16 TIME: 12:05 Assessment/Plan VTE Prophylaxis VTE Prophylaxis Intervention: LMWH Lines/Catheters IV [facility] (from [facility] Peripheral IV Assessment/Plan Chief Complaint/Hosp Course 1. Sepsis secondary to staph bacteremia and UTI from ESBL E. coli and Pseudomonas -Continue vancomycin and Zosyn -Follow-up on cultures -ID consult appreciated 2. Trach/vent dependent respiratory failure -Continue vent support -Pulmonary consult appreciated 3. Anoxic brain injury -Patient with a history of drug overdose -Continue supportive care 4. PEG tube malfunction GI consultation appreciated Prophylaxis: Lovenox Problems: Subjective 24 Hr Interval Summary Subjective hx not possible: pt non-verbal Exam/Review of Systems Vital Signs Vitals Vital Signs Date Time Temp Pulse Resp B/P Pulse Ox O2 Delivery O2 Flow Rate FiO2 12/03/16 11:30 108 23 97 35 12/03/16 07:43 99.3 133/87 11/30/16 13:51 Mechanical Ventilator Intake and Output 12/02/16 12/02/16 12/03/16 15:00 23:00 07:00 Intake Total 100 ml 700 ml 510 ml Output Total 450 ml 350 ml Balance 100 ml 250 ml 160 ml Exam Constitutional: non-verbal Respiratory: clear to auscultation Cardiovascular: regular rate and rhythm Gastrointestinal: soft, No distended Musculoskeletal: nl extremities to inspection Results Result Diagram: 12/03/16 0611 12/03/16 0611 Results 24 hrs Laboratory Tests Test 12/03/16 06:11 White Blood Count 6.4 # Red Blood Count 3.69 L Hemoglobin 11.6 L Hematocrit 35.2 L Mean Corpuscular Volume 95.4 Mean Corpuscular Hemoglobin 31.4 Mean Corpuscular Hemoglobin Concent 33.0 Red Cell Distribution Width 13.2 Platelet Count 377 Mean Platelet Volume 9.6 Neutrophils % 62.9 Lymphocytes % 25.0 Monocytes % 8.3 Eosinophils % 2.5 Basophils % 0.8 Nucleated Red Blood Cells % 0.0 Neutrophils # 4.0 Lymphocytes # 1.6 Monocytes # 0.5 Eosinophils # 0.2 Basophils # 0.1 Nucleated Red Blood Cells # 0.0 Sodium Level 145 H Potassium Level 3.0 L Chloride Level 110 Carbon Dioxide Level 24 Anion Gap 14 Blood Urea Nitrogen 11 Creatinine 0.46 L Glucose Level 112 Calcium Level 9.0 Medications Medications Current Medications Ondansetron HCl (Zofran Inj) 4 mg Q6H PRN IV NAUSEA AND/OR VOMITING Last administered on 11/30/16 21:12; Admin Dose 4 MG; Start 11/30/16 at 06:30 Acetaminophen (Tylenol Tab) 650 mg Q6H PRN PO PAIN LEVEL 1-3 OR FEVER Last administered on 12/02/16 16:35; Admin Dose 650 MG; Start 11/30/16 at 06:30 Acetaminophen (Tylenol Supp) 650 mg Q6H PRN [place] PAIN LEVEL 1-3 OR FEVER; Start 11/30/16 at 06:30 Morphine Sulfate (morphine) 2 mg Q4H PRN IV PAIN LEVEL 7-10; Start 11/30/16 at 06:30 Enoxaparin Sodium (Lovenox) 40 mg DAILY SC Last administered on 12/03/16 09: 17; Admin Dose 40 MG; Start 11/30/16 at 09:00 Miscellaneous Information This patient franklin... PRN PRN XX WOUND CARE; Start at 10:30 Piperacillin Sod/ Tazobactam Sod (Zosyn 3.375gm/ 100 ml (Pmx)) 100 ml @ 200 mls /hr Q6 IVPB Last administered on 12/03/16 05:05; Admin Dose 200 MLS/HR; Start 12/01/16 at 00:00 Metoclopramide HCl 10 mg 10 mg Q6H PRN IV N/V Last administered on 11/30/16 22:48; Admin Dose 10 MG; Start 11/30/16 at 22:00 Potassium Chloride/Dextrose (D5W + KCl 20 Meq) 1,000 ml @ 100 mls/hr Q10H IV Last administered on 12/02/16 22:32; Admin Dose 100 MLS/HR; Start 12/02/16 at 10:30 Metoprolol Tartrate 25 mg 25 mg Q12 NGT Last administered on 12/03/16 09:18; Admin Dose 25 MG; Start 12/02/16 at 21:00 Vancomycin HCl (Vancocin) 250 ml @ 62.5 mls/hr Q8H IVPB Last administered on 12/03/16 05:05; Admin Dose 62.5 MLS/HR; Start 12/02/16 at 21:00 Miscellaneous Information (*Rx Drug Level Order Reminder*) VANCOMYCIN TROUGH AT 0400 ONCE ONCE XX ; Start 12/04/16 at 04:00; Stop 12/04/16 at 04:01 MONAE GANT Dec 03, 2016 12:06
[2016-12-03] MEDS: ACETAMINOPHEN 325 MG TAB PO PRN ×2 (12:38→23:47)
--- NOTE | 2016-12-03 12:57 | CONS ---
Date/Time of Note Date/Time of Note DATE: 12/03/16 TIME: 12:41 Consult Date/Type/Reason Admit Date/Time Nov 30, 2016 at 04:30 Initial Consult Date 12/02/16 Type of Consultation: Pulmonary Ordering Provider: FLOWER CONDE MD Subjective Comfortable this morning. No new events. Objective Vital Signs Date Time Temp Pulse Resp B/P Pulse Ox O2 Delivery O2 Flow Rate FiO2 12/03/16 12:36 97 12/03/16 11:45 99.5 144/87 12/03/16 11:30 23 97 35 11/30/16 13:51 Mechanical Ventilator Intake and Output 12/02/16 12/02/16 12/03/16 15:00 23:00 07:00 Intake Total 100 ml 700 ml 510 ml Output Total 450 ml 350 ml Balance 100 ml 250 ml 160 ml Exam PHYSICAL EXAMINATION GENERAL: Chronically ill-appearing young gentleman comfortable at rest VITAL SIGNS: see below. HEENT: Pupils equal, round, and reactive to light. Tracheostomy site clean and intact. CARDIAC: S1, S2, no new events. CHEST: Diminished air entry bilaterally. ABDOMEN: Mildly distended. Bowel sounds present no guarding or rebound EXTREMITIES: No cyanosis, clubbing edema +1 NEUROLOGIC: Generalized weakness Results/Medications Result Diagram: 12/03/16 0611 12/03/16 0611 Results 24 hrs Laboratory Tests Test 12/03/16 06:11 White Blood Count 6.4 # Red Blood Count 3.69 L Hemoglobin 11.6 L Hematocrit 35.2 L Mean Corpuscular Volume 95.4 Mean Corpuscular Hemoglobin 31.4 Mean Corpuscular Hemoglobin Concent 33.0 Red Cell Distribution Width 13.2 Platelet Count 377 Mean Platelet Volume 9.6 Neutrophils % 62.9 Lymphocytes % 25.0 Monocytes % 8.3 Eosinophils % 2.5 Basophils % 0.8 Nucleated Red Blood Cells % 0.0 Neutrophils # 4.0 Lymphocytes # 1.6 Monocytes # 0.5 Eosinophils # 0.2 Basophils # 0.1 Nucleated Red Blood Cells # 0.0 Sodium Level 145 H Potassium Level 3.0 L Chloride Level 110 Carbon Dioxide Level 24 Anion Gap 14 Blood Urea Nitrogen 11 Creatinine 0.46 L Glucose Level 112 Calcium Level 9.0 Medications Current Medications Ondansetron HCl (Zofran Inj) 4 mg Q6H PRN IV NAUSEA AND/OR VOMITING Last administered on 11/30/16 21:12; Admin Dose 4 MG; Start 11/30/16 at 06:30 Acetaminophen (Tylenol Tab) 650 mg Q6H PRN PO PAIN LEVEL 1-3 OR FEVER Last administered on 12/02/16 16:35; Admin Dose 650 MG; Start 11/30/16 at 06:30 Acetaminophen (Tylenol Supp) 650 mg Q6H PRN [place] PAIN LEVEL 1-3 OR FEVER; Start 11/30/16 at 06:30 Morphine Sulfate (morphine) 2 mg Q4H PRN IV PAIN LEVEL 7-10; Start 11/30/16 at 06:30 Enoxaparin Sodium (Lovenox) 40 mg DAILY SC Last administered on 12/03/16 09: 17; Admin Dose 40 MG; Start 11/30/16 at 09:00 Miscellaneous Information This patient franklin... PRN PRN XX WOUND CARE; Start at 10:30 Piperacillin Sod/ Tazobactam Sod (Zosyn 3.375gm/ 100 ml (Pmx)) 100 ml @ 200 mls /hr Q6 IVPB Last administered on 12/03/16 12:04; Admin Dose 200 MLS/HR; Start 12/01/16 at 00:00 Metoclopramide HCl 10 mg 10 mg Q6H PRN IV N/V Last administered on 11/30/16 22:48; Admin Dose 10 MG; Start 11/30/16 at 22:00 Potassium Chloride/Dextrose (D5W + KCl 20 Meq) 1,000 ml @ 100 mls/hr Q10H IV Last administered on 12/02/16 22:32; Admin Dose 100 MLS/HR; Start 12/02/16 at 10:30 Metoprolol Tartrate 25 mg 25 mg Q12 NGT Last administered on 12/03/16 09:18; Admin Dose 25 MG; Start 12/02/16 at 21:00 Vancomycin HCl (Vancocin) 250 ml @ 62.5 mls/hr Q8H IVPB Last administered on 12/03/16 05:05; Admin Dose 62.5 MLS/HR; Start 12/02/16 at 21:00 Miscellaneous Information VANCOMYCIN TROUGH AT 0400 ONCE ONCE XX ; Start 12/04/16 at 04:00; Stop 12/04/16 at 04:01 Potassium Chloride (KCl 40 MEQ/250 ML NS) 250 ml @ 62.5 mls/hr Q4H IVPB ; Start 12/03/16 at 13:00; Stop 12/03/16 at 20:59 Assessment/Plan Chief Complaint/Hosp Course Assessment and recommendations; 1. Patient admitted with severe UTI currently on appropriate antibiotic regimen. 2. Hypoxemic respiratory failure. Chronic in nature. 3. Stable hypertension. 4. Dysphagia with G-tube.. 5. Status post severe anoxic brain injury, patient in an essentially vegetative state. 6. Hypokalemia 1. Continue antibiotics 2. Vent support 2. DC planning Problems: KEVIN BOATENG MD, [facility] Dec 03, 2016 12:51
--- NOTE | 2016-12-03 13:56 | CONS ---
Date/Time of Note Date/Time of Note DATE: 12/03/16 TIME: 13:35 Assessment/Plan Assessment/Plan Chief Complaint/Hosp Course ID PROGRESS NOTE CURRENT ABX: DAY # 3 => Vanco IV + Zosyn #2-> CHANGE TO MERREM TODAY 24H INTERVAL SUMMARY * Non-communicative = chronic encephalopathy * TMax 99.6, WBC normalized, intermittent tachycardia * CXR: No acute cardiopulmonary process. 2D ECHO: LVEF 60-65%. * Microbiology URINE CULTURE Final Organism 1 ESCHERICHIA COLI (ESBL) COLONY COUNT >100,000 CFU/ml . MULTI DRUG RESISTANT ORGANISM Organism 2 PSEUDOMONAS AERUGINOSA COLONY COUNT >100,000 CFU/ml ECOLI ESBL P.AERUG M.I.C. RX M.I.C. RX --------- --- --------- --- AMIKACIN 4 S <=2 S AMPICILLIN >=32 R AZTREONAM S CEFAZOLIN R CEFEPIME >=64 R <=1 S CEFOTAXIME R CEFTAZIDIME <=1 S CIPROFLOXACIN >=4 R <=0.25 S GENTAMICIN <=1 S <=1 S IMIPENEM <=0.25 S 1 S LEVOFLOXACIN >=8 R 0.25 S NITROFURANTOIN <=16 S TOBRAMYCIN 8 I <=1 S TRIMETHOPRIM/SULFAMETHOXAZOLE >=320 R PIPERACILLIN/TAZOBACTAM 8 S <=4 S Physical Exam Physical Exam Constitutional: Chronic vegetative, non-communicative, looks comfortable on the Vent HEENT:Eyes open, no tracking, moist oral membranes Neck: (+)Trach -> stoma site clean, secure to Vent Respiratory: Clear anterior, vented Cardiovascular: NSR on tele, radial pulses 2+ bilaterally Gastrointestinal: Soft, NT, peg intact Extremities: Warm, atrophic Neurological: Vegetative, no purposeful movement seen ID ASSESSMENT 36-yo M w/PMHx heroin overdose and anoxic brain injury admit with: 1. Sepsis on admission w/fevers 11/29/16 101.3, tachycardia, lactic acid elevated to 1.9 (high normal) 2. 11/29/16 Bacteremia w/BCx (+)2/2 bottles: COAGULASE NEGATIVE STAPH * Probable skin contaminant, he presents without indwelling lines, nor devices 3. Polymicrobial complicated MDRO GNR UTI: URINE CULTURE Final Organism 1 ESCHERICHIA COLI (ESBL) >100,000 CFU/ml Organism 2 PSEUDOMONAS AERUGINOSA >100,000 CFU/ml 4. Chronic tracheostomy with Ventilator dependent respiratory failure. 5. Dysphagia -> G-tube 6. Stable hypertension. 7. Pressure ulcers -> See photos ABX ALLERGIES: KNDA CURRENT ABX: DAY # 3 => Vanco IV + Zosyn #2-> CHANGE TO MERREM TODAY ID RECOMMENDATIONS 1. Change Zosyn to MERREM => ABX of choice for ESBL * RATIONALE: While MICRO sensitivities demonstrate E.Coli-ESBL as SENSITIVE to ZOSYN "in VITRO"; this is not approved ABX for ESBL tx "In-VIVO" as the presence of ESBL will render Zosyn RESISTANT in a matter of short term days => high risk failure. 2. Continue Vanco IV => f/u on repeat BCx sent 12/02/16 if they are negative then DC Vanco as suspect false + skin contaminated samples. 3. When cleared by primary for DC-> Patient may DC back to SNF on Merrem UNTIL LAST DAY 12/09/16 . Problems: Consultation Date/Type/Reason Admit Date/Time Nov 30, 2016 at 04:30 Initial Consult Date 12/02/16 Type of Consultation: ID Referring Provider: FLOWER CONDE MD Exam/Review of Systems Vital Signs Vitals Vital Signs Date Time Temp Pulse Resp B/P Pulse Ox O2 Delivery O2 Flow Rate FiO2 12/03/16 12:36 97 12/03/16 11:45 99.5 144/87 12/03/16 11:30 23 97 35 11/30/16 13:51 Mechanical Ventilator Intake and Output 12/02/16 12/02/16 12/03/16 15:00 23:00 07:00 Intake Total 100 ml 700 ml 510 ml Output Total 450 ml 350 ml Balance 100 ml 250 ml 160 ml Results Result Diagram: 12/03/16 0611 12/03/16 0611 Results 24 hrs Laboratory Tests Test 12/03/16 06:11 White Blood Count 6.4 # Red Blood Count 3.69 L Hemoglobin 11.6 L Hematocrit 35.2 L Mean Corpuscular Volume 95.4 Mean Corpuscular Hemoglobin 31.4 Mean Corpuscular Hemoglobin Concent 33.0 Red Cell Distribution Width 13.2 Platelet Count 377 Mean Platelet Volume 9.6 Neutrophils % 62.9 Lymphocytes % 25.0 Monocytes % 8.3 Eosinophils % 2.5 Basophils % 0.8 Nucleated Red Blood Cells % 0.0 Neutrophils # 4.0 Lymphocytes # 1.6 Monocytes # 0.5 Eosinophils # 0.2 Basophils # 0.1 Nucleated Red Blood Cells # 0.0 Sodium Level 145 H Potassium Level 3.0 L Chloride Level 110 Carbon Dioxide Level 24 Anion Gap 14 Blood Urea Nitrogen 11 Creatinine 0.46 L Glucose Level 112 Calcium Level 9.0 Medications Medications Current Medications Ondansetron HCl (Zofran Inj) 4 mg Q6H PRN IV NAUSEA AND/OR VOMITING Last administered on 11/30/16 21:12; Admin Dose 4 MG; Start 11/30/16 at 06:30 Acetaminophen (Tylenol Tab) 650 mg Q6H PRN PO PAIN LEVEL 1-3 OR FEVER Last administered on 12/03/16 12:38; Admin Dose 650 MG; Start 11/30/16 at 06:30 Acetaminophen (Tylenol Supp) 650 mg Q6H PRN [place] PAIN LEVEL 1-3 OR FEVER; Start 11/30/16 at 06:30 Morphine Sulfate (morphine) 2 mg Q4H PRN IV PAIN LEVEL 7-10; Start 11/30/16 at 06:30 Enoxaparin Sodium (Lovenox) 40 mg DAILY SC Last administered on 12/03/16 09: 17; Admin Dose 40 MG; Start 11/30/16 at 09:00 Miscellaneous Information This patient franklin... PRN PRN XX WOUND CARE; Start at 10:30 Piperacillin Sod/ Tazobactam Sod (Zosyn 3.375gm/ 100 ml (Pmx)) 100 ml @ 200 mls /hr Q6 IVPB Last administered on 12/03/16 12:04; Admin Dose 200 MLS/HR; Start 12/01/16 at 00:00 Metoclopramide HCl 10 mg 10 mg Q6H PRN IV N/V Last administered on 11/30/16 22:48; Admin Dose 10 MG; Start 11/30/16 at 22:00 Potassium Chloride/Dextrose (D5W + KCl 20 Meq) 1,000 ml @ 100 mls/hr Q10H IV Last administered on 12/02/16 22:32; Admin Dose 100 MLS/HR; Start 12/02/16 at 10:30 Metoprolol Tartrate 25 mg 25 mg Q12 NGT Last administered on 12/03/16 09:18; Admin Dose 25 MG; Start 12/02/16 at 21:00 Vancomycin HCl (Vancocin) 250 ml @ 62.5 mls/hr Q8H IVPB Last administered on 12/03/16 13:16; Admin Dose 62.5 MLS/HR; Start 12/02/16 at 21:00 Miscellaneous Information VANCOMYCIN TROUGH AT 0400 ONCE ONCE XX ; Start 12/04/16 at 04:00; Stop 12/04/16 at 04:01 Potassium Chloride (KCl 40 MEQ/250 ML NS) 250 ml @ 62.5 mls/hr Q4H IVPB ; Start 12/03/16 at 13:00; Stop 12/03/16 at 20:59 [employer] Dec 03, 2016 13:45
[2016-12-03] MEDS: POTASSIUM CHLORIDE 250 ML IVPB SCH ×2 (14:25→18:33)
--- NOTE | 2016-12-03 14:51 | PN ---
Date/Time of Note Date/Time of Note DATE: 12/03/16 TIME: 14:49 Assessment/Plan VTE Prophylaxis VTE Prophylaxis Intervention: SCD's Lines/Catheters [facility] Saline Lock Assessment/Plan Chief Complaint/Hosp Course Assessment: Anoxic brain injury/ secondary to drug overdose Dysphagia- needing PEG for TF- not tolerating R/o ileus vs obstruction Sepsis secondary to staph bacteremia and UTI- on antibiotics Trach/vent dependent respiratory failure Plan: Start TF increase as toelrated KUB- negative for obstruction Patient seen in collaboration with Subjective: Course reviewed with nursing staff Patient interviewed and examined All labs, imaging and other results reviewed The patient is stable, mother at bedside, discussed results of KUB and plan to start tf she verbalized understanding PHYSICAL EXAMINATION: GENERAL: Well developed, well nourished, alert, non-verbal SKIN: No lesions, no stigmata chronic liver disease, no evidence of bleeding diathesis, g-tube LYMPHATIC: No palpable lymphadenopathy. HEAD: Normocephalic, atraumatic, no tenderness. EYES: Pupils equal reactive to light and accommodation, full extraocular movements, sclera clear, non-icteric, no discharge. EARS/NOSE AND THROAT: Ears normal, nose normal, oropharynx normal, oral membranes well hydrated without lesions. NECK: Supple, no masses, thyroid normal, JVP within normal limits, carotids normal without bruits. CHEST: Inspection within normal limits. CARDIOVASCULAR: Heart: Regular rate and rhythm, no murmurs, gallops or rubs. Peripheral pulses present within normal limits, no cyanosis, clubbing or edemas. No pulsatile abdominal mass RESPIRATORY: Lungs clear to auscultation, trach vent- dependent GASTROINTESTINAL AND LIVER: Abdomen: Soft, non tenderness, non-distended, no hernias, no masses, no organomegaly, no ascites, no guarding, no rebound tenderness, normoactive bowel sounds. g-tube Rectal: Deferred. GENITOURINARY: Male genitalia within normal limits, FC in place EXTREMITIES: No cyanosis, clubbing or edema. Problems: Exam/Review of Systems Vital Signs Vitals Vital Signs Date Time Temp Pulse Resp B/P Pulse Ox O2 Delivery O2 Flow Rate FiO2 12/03/16 12:36 97 12/03/16 11:45 99.5 144/87 12/03/16 11:30 23 97 35 11/30/16 13:51 Mechanical Ventilator Intake and Output 12/02/16 12/02/16 12/03/16 15:00 23:00 07:00 Intake Total 100 ml 700 ml 510 ml Output Total 450 ml 350 ml Balance 100 ml 250 ml 160 ml Results Result Diagram: 12/03/16 0611 12/03/16 0611 Results 24 hrs Laboratory Tests Test 12/03/16 06:11 White Blood Count 6.4 # Red Blood Count 3.69 L Hemoglobin 11.6 L Hematocrit 35.2 L Mean Corpuscular Volume 95.4 Mean Corpuscular Hemoglobin 31.4 Mean Corpuscular Hemoglobin Concent 33.0 Red Cell Distribution Width 13.2 Platelet Count 377 Mean Platelet Volume 9.6 Neutrophils % 62.9 Lymphocytes % 25.0 Monocytes % 8.3 Eosinophils % 2.5 Basophils % 0.8 Nucleated Red Blood Cells % 0.0 Neutrophils # 4.0 Lymphocytes # 1.6 Monocytes # 0.5 Eosinophils # 0.2 Basophils # 0.1 Nucleated Red Blood Cells # 0.0 Sodium Level 145 H Potassium Level 3.0 L Chloride Level 110 Carbon Dioxide Level 24 Anion Gap 14 Blood Urea Nitrogen 11 Creatinine 0.46 L Glucose Level 112 Calcium Level 9.0 Medications Medications Current Medications Ondansetron HCl (Zofran Inj) 4 mg Q6H PRN IV NAUSEA AND/OR VOMITING Last administered on 11/30/16 21:12; Admin Dose 4 MG; Start 11/30/16 at 06:30 Acetaminophen (Tylenol Tab) 650 mg Q6H PRN PO PAIN LEVEL 1-3 OR FEVER Last administered on 12/03/16 12:38; Admin Dose 650 MG; Start 11/30/16 at 06:30 Acetaminophen (Tylenol Supp) 650 mg Q6H PRN [place] PAIN LEVEL 1-3 OR FEVER; Start 11/30/16 at 06:30 Morphine Sulfate (morphine) 2 mg Q4H PRN IV PAIN LEVEL 7-10; Start 11/30/16 at 06:30 Enoxaparin Sodium (Lovenox) 40 mg DAILY SC Last administered on 12/03/16 09: 17; Admin Dose 40 MG; Start 11/30/16 at 09:00 Miscellaneous Information (Pending Santyl Order For Wound Care) This patient franklin... PRN PRN XX WOUND CARE; Start 11/30/16 at 10:30 Metoclopramide HCl 10 mg 10 mg Q6H PRN IV N/V Last administered on 11/30/16 22:48; Admin Dose 10 MG; Start 11/30/16 at 22:00 Potassium Chloride/Dextrose (D5W + KCl 20 Meq) 1,000 ml @ 100 mls/hr Q10H IV Last administered on 12/02/16 22:32; Admin Dose 100 MLS/HR; Start 12/02/16 at 10:30 Metoprolol Tartrate 25 mg 25 mg Q12 NGT Last administered on 12/03/16 09:18; Admin Dose 25 MG; Start 12/02/16 at 21:00 Vancomycin HCl (Vancocin) 250 ml @ 62.5 mls/hr Q8H IVPB Last administered on 12/03/16 13:16; Admin Dose 62.5 MLS/HR; Start 12/02/16 at 21:00 Miscellaneous Information VANCOMYCIN TROUGH AT 0400 ONCE ONCE XX ; Start 12/04/16 at 04:00; Stop 12/04/16 at 04:01 Potassium Chloride 250 ml @ 62.5 mls/hr Q4H IVPB Last administered on 14:25; Admin Dose 62.5 MLS/HR; Start 12/03/16 at 13:00; Stop 12/03/16 at 20:59 Meropenem/Sodium Chloride (Merrem 500mg/50 ml(Pmx)) 50 ml @ 100 mls/hr Q8 IVPB ; Start 12/03/16 at 15:00 RAY LEMUS Dec 03, 2016 14:51
[2016-12-03] MEDS: D5W + KCL 20 MEQ 1,000 ML IV SCH (16:30)
[2016-12-03] MEDS: MEROPENEM 500MG/50 ML (PMX) 50 ML IVPB SCH ×2 (18:28→20:23)
--- NOTE | 2016-12-03 19:29 | CONS ---
Date/Time of Note Date/Time of Note DATE: 12/03/16 TIME: 19:28 Assessment/Plan Assessment/Plan Chief Complaint/Hosp Course Assessment: Sinus tachycardia - physiologic, now improved Hypertension Sepsis secondary to urinary tract infection - on antibiotics History of anoxic brain injury Chronic ventilator-dependent respiratory failure Hypokalemia Recommendations: -continue metoprolol 25mg BID -replace potassium Problems: Consultation Date/Type/Reason Admit Date/Time Nov 30, 2016 at 04:30 Initial Consult Date 12/02/16 Type of Consultation: Cardiology 24 HR Interval Summary Free Text/Dictation No acute events. Heart rates improved. Detailed Summary Additional Comments Unable to obtain review of systems due to patient's mental status. Exam/Review of Systems Vital Signs Vitals Vital Signs Date Time Temp Pulse Resp B/P Pulse Ox O2 Delivery O2 Flow Rate FiO2 12/03/16 17:30 92 23 100 35 12/03/16 15:13 100.1 122/73 11/30/16 13:51 Mechanical Ventilator Intake and Output 12/02/16 12/02/16 12/03/16 15:00 23:00 07:00 Intake Total 100 ml 700 ml 510 ml Output Total 450 ml 350 ml Balance 100 ml 250 ml 160 ml Exam Constitutional: non-verbal, No alert Psych: No nl mood/affect, No no complaints Head: atraumatic, normocephalic Eyes: nl conjunctiva, nl lids ENMT: nl external ears & nose, nl nasal mucosa & septum Neck: other (tracheostomy), No jvd Respiratory: diminished breath sounds, No crackles/rales Cardiovascular: No murmurs/extra sounds, No regular rate and rhythm ( tachycardic) Gastrointestinal: other (gastrostomy tube), soft Musculoskeletal: other (contractures) Extremities: No clubbing, No cyanosis, No edema Neurological: No nl mental status, No nl speech Results Result Diagram: 12/03/16 0611 12/03/16 0611 Results 24 hrs Laboratory Tests Test 12/03/16 06:11 White Blood Count 6.4 # Red Blood Count 3.69 L Hemoglobin 11.6 L Hematocrit 35.2 L Mean Corpuscular Volume 95.4 Mean Corpuscular Hemoglobin 31.4 Mean Corpuscular Hemoglobin Concent 33.0 Red Cell Distribution Width 13.2 Platelet Count 377 Mean Platelet Volume 9.6 Neutrophils % 62.9 Lymphocytes % 25.0 Monocytes % 8.3 Eosinophils % 2.5 Basophils % 0.8 Nucleated Red Blood Cells % 0.0 Neutrophils # 4.0 Lymphocytes # 1.6 Monocytes # 0.5 Eosinophils # 0.2 Basophils # 0.1 Nucleated Red Blood Cells # 0.0 Sodium Level 145 H Potassium Level 3.0 L Chloride Level 110 Carbon Dioxide Level 24 Anion Gap 14 Blood Urea Nitrogen 11 Creatinine 0.46 L Glucose Level 112 Calcium Level 9.0 Medications Medications Current Medications Ondansetron HCl (Zofran Inj) 4 mg Q6H PRN IV NAUSEA AND/OR VOMITING Last administered on 11/30/16 21:12; Admin Dose 4 MG; Start 11/30/16 at 06:30 Acetaminophen (Tylenol Tab) 650 mg Q6H PRN PO PAIN LEVEL 1-3 OR FEVER Last administered on 12/03/16 12:38; Admin Dose 650 MG; Start 11/30/16 at 06:30 Acetaminophen (Tylenol Supp) 650 mg Q6H PRN [place] PAIN LEVEL 1-3 OR FEVER Last administered on 12/03/16 17:14; Admin Dose 650 MG; Start 11/30/16 at 06:30 Morphine Sulfate (morphine) 2 mg Q4H PRN IV PAIN LEVEL 7-10; Start 11/30/16 at 06:30 Enoxaparin Sodium (Lovenox) 40 mg DAILY SC Last administered on 12/03/16 09: 17; Admin Dose 40 MG; Start 11/30/16 at 09:00 Miscellaneous Information (Pending [facility] Order For Wound Care) This patient franklin... PRN PRN XX WOUND CARE; Start 11/30/16 at 10:30 Metoclopramide HCl 10 mg 10 mg Q6H PRN IV N/V Last administered on 11/30/16 22:48; Admin Dose 10 MG; Start 11/30/16 at 22:00 Potassium Chloride/Dextrose (D5W + KCl 20 Meq) 1,000 ml @ 100 mls/hr Q10H IV Last administered on 12/02/16 22:32; Admin Dose 100 MLS/HR; Start 12/02/16 at 10:30 Metoprolol Tartrate 25 mg 25 mg Q12 NGT Last administered on 12/03/16 09:18; Admin Dose 25 MG; Start 12/02/16 at 21:00 Vancomycin HCl (Vancocin) 250 ml @ 62.5 mls/hr Q8H IVPB Last administered on 12/03/16 13:16; Admin Dose 62.5 MLS/HR; Start 12/02/16 at 21:00 Miscellaneous Information VANCOMYCIN TROUGH AT 0400 ONCE ONCE XX ; Start 12/04/16 at 04:00; Stop 12/04/16 at 04:01 Potassium Chloride 250 ml @ 62.5 mls/hr Q4H IVPB Last administered on 18:33; Admin Dose 62.5 MLS/HR; Start 12/03/16 at 13:00; Stop 12/03/16 at 20:59 Meropenem/Sodium Chloride (Merrem 500mg/50 ml(Pmx)) 50 ml @ 100 mls/hr Q8 IVPB Last administered on 12/03/16 18:28; Admin Dose 100 MLS/HR; Start 12/03/16 at 15:00 CARMINA LI MD Dec 03, 2016 19:29
[2016-12-03] MEDS ORDERED: MEROPENEM 1 GM in SOD CHLORIDE 0.9% 100 ML IVPB SCH (21:00)
[2016-12-04] VITALS (24 sets, daily range): BP systolic 122–147; BP diastolic 65–87; PULSE 84–100; RESP 16–28
[2016-12-04] MEDS: D5W + KCL 20 MEQ 1,000 ML IV SCH ×3 (02:30→22:30)
[2016-12-04] MEDS: MEROPENEM 500MG/50 ML (PMX) 50 ML IVPB SCH ×3 (05:02→21:11)
[2016-12-04] MEDS: VANCOMYCIN 1 GM in NS 250 ML IVPB SCH ×3 (05:43→21:54)
[2016-12-04] MEDS: METOPROLOL 25 MG TAB NGT SCH ×2 (08:52→21:17)
[2016-12-04] MEDS: ENOXAPARIN 40 MG/0.4 ML SYG SC SCH (08:53)
--- NOTE | 2016-12-04 10:59 | CONS ---
Date/Time of Note Date/Time of Note DATE: 12/04/16 TIME: 10:59 Consult Date/Type/Reason Admit Date/Time Nov 30, 2016 at 04:30 Initial Consult Date 12/02/16 Type of Consultation: Pulmonary Subjective Patient remained stable. Objective Vital Signs Date Time Temp Pulse Resp B/P Pulse Ox O2 Delivery O2 Flow Rate FiO2 12/04/16 08:31 96 12/04/16 07:29 99.1 16 147/86 99 12/04/16 05:35 35 12/03/16 23:45 Trach Collar Intake and Output 12/03/16 12/03/16 12/04/16 15:00 23:00 07:00 Intake Total 160 ml 800 ml Output Total 400 ml 1200 ml Balance -240 ml -400 ml Exam PHYSICAL EXAMINATION GENERAL: Chronically ill-appearing young gentleman comfortable at rest VITAL SIGNS: see below. HEENT: Pupils equal, round, and reactive to light. Tracheostomy site clean and intact. CARDIAC: S1, S2, no new events. CHEST: Diminished air entry bilaterally. ABDOMEN: Mildly distended. Bowel sounds present no guarding or rebound EXTREMITIES: No cyanosis, clubbing edema +1 NEUROLOGIC: Generalized weakness Results/Medications Result Diagram: 12/03/16 0611 12/04/16 0405 Results 24 hrs Laboratory Tests Test 12/04/16 04:05 Sodium Level 145 H Potassium Level 3.9 Chloride Level 111 H Carbon Dioxide Level 22 Anion Gap 16 Blood Urea Nitrogen 7 Creatinine 0.47 L Glucose Level 124 Calcium Level 9.0 Vancomycin Level Trough 11.5 Medications Current Medications Ondansetron HCl (Zofran Inj) 4 mg Q6H PRN IV NAUSEA AND/OR VOMITING Last administered on 11/30/16 21:12; Admin Dose 4 MG; Start 11/30/16 at 06:30 Acetaminophen (Tylenol Tab) 650 mg Q6H PRN PO PAIN LEVEL 1-3 OR FEVER Last administered on 12/03/16 23:47; Admin Dose 650 MG; Start 11/30/16 at 06:30 Acetaminophen (Tylenol Supp) 650 mg Q6H PRN [place] PAIN LEVEL 1-3 OR FEVER Last administered on 12/03/16 17:14; Admin Dose 650 MG; Start 11/30/16 at 06:30 Morphine Sulfate (morphine) 2 mg Q4H PRN IV PAIN LEVEL 7-10; Start 11/30/16 at 06:30 Enoxaparin Sodium (Lovenox) 40 mg DAILY SC Last administered on 12/04/16 08: 53; Admin Dose 40 MG; Start 11/30/16 at 09:00 Miscellaneous Information (Pending [facility] Order For Wound Care) This patient franklin... PRN PRN XX WOUND CARE; Start 11/30/16 at 10:30 Metoclopramide HCl 10 mg 10 mg Q6H PRN IV N/V Last administered on 11/30/16 22:48; Admin Dose 10 MG; Start 11/30/16 at 22:00 Potassium Chloride/Dextrose (D5W + KCl 20 Meq) 1,000 ml @ 100 mls/hr Q10H IV Last administered on 12/04/16 08:51; Admin Dose 100 MLS/HR; Start 12/02/16 at 10:30 Metoprolol Tartrate 25 mg 25 mg Q12 NGT Last administered on 12/04/16 08:52; Admin Dose 25 MG; Start 12/02/16 at 21:00 Vancomycin HCl 250 ml @ 62.5 mls/hr Q8H IVPB Last administered on 12/04/16 05:43; Admin Dose 62.5 MLS/HR; Start 12/02/16 at 21:00 Meropenem/Sodium Chloride (Merrem 500mg/50 ml(Pmx)) 50 ml @ 100 mls/hr Q8 IVPB Last administered on 12/04/16 05:02; Admin Dose 100 MLS/HR; Start 12/03/16 at 15:00 Assessment/Plan Chief Complaint/Hosp Course Assessment and recommendations; 1. Patient admitted with severe UTI currently on appropriate antibiotic regimen. 2. Hypoxemic respiratory failure. Chronic in nature. 3. Stable hypertension. 4. Dysphagia with G-tube.. 5. Status post severe anoxic brain injury, patient in an essentially vegetative state. 6. Hypokalemia 1. Continue antibiotics 2. Vent support 3. DC planning Problems: KEVIN BOATENG MD, [facility] Dec 04, 2016 10:59
--- NOTE | 2016-12-04 14:40 | PN ---
Date/Time of Note Date/Time of Note DATE: 12/04/16 TIME: 14:38 Assessment/Plan VTE Prophylaxis VTE Prophylaxis Intervention: SCD's Lines/Catheters [facility] Saline Lock Urinary Cath still in place: Yes Reason Cath still needed: other (indicate) (Monitor output) Assessment/Plan Chief Complaint/Hosp Course Assessment: Anoxic brain injury/ secondary to drug overdose Dysphagia- needing PEG for TF- not tolerating R/o ileus vs obstruction Sepsis secondary to staph bacteremia and UTI- on antibiotics Trach/vent dependent respiratory failure Plan: Cont to increase TF as tolerated watery stool x2- check for c-diff If continues with watery stool and c-diff neg will consider changing TF Patient seen in collaboration with Subjective: Course reviewed with nursing staff Patient interviewed and examined All labs, imaging and other results reviewed The patient is stable, increase TF as dari Will check for c-diff- due to watery stool x2 if neg and watery stool continues will consider changing TF PHYSICAL EXAMINATION: GENERAL: Well developed, well nourished, alert, non-verbal SKIN: No lesions, no stigmata chronic liver disease, no evidence of bleeding diathesis, g-tube LYMPHATIC: No palpable lymphadenopathy. HEAD: Normocephalic, atraumatic, no tenderness. EYES: Pupils equal reactive to light and accommodation, full extraocular movements, sclera clear, non-icteric, no discharge. EARS/NOSE AND THROAT: Ears normal, nose normal, oropharynx normal, oral membranes well hydrated without lesions. NECK: Supple, no masses, thyroid normal, JVP within normal limits, carotids normal without bruits. CHEST: Inspection within normal limits. CARDIOVASCULAR: Heart: Regular rate and rhythm, no murmurs, gallops or rubs. Peripheral pulses present within normal limits, no cyanosis, clubbing or edemas. No pulsatile abdominal mass RESPIRATORY: Lungs clear to auscultation, trach vent- dependent GASTROINTESTINAL AND LIVER: Abdomen: Soft, non tenderness, non-distended, no hernias, no masses, no organomegaly, no ascites, no guarding, no rebound tenderness, normoactive bowel sounds. g-tube Rectal: Deferred. GENITOURINARY: Male genitalia within normal limits, FC in place EXTREMITIES: No cyanosis, clubbing or edema. Problems: Exam/Review of Systems Vital Signs Vitals Vital Signs Date Time Temp Pulse Resp B/P Pulse Ox O2 Delivery O2 Flow Rate FiO2 12/04/16 12:31 84 12/04/16 11:38 99.1 17 141/87 100 12/04/16 11:25 35 12/03/16 23:45 Trach Collar Intake and Output 12/03/16 12/03/16 12/04/16 15:00 23:00 07:00 Intake Total 160 ml 800 ml Output Total 400 ml 1200 ml Balance -240 ml -400 ml Results Result Diagram: 12/03/16 0611 12/04/16 0405 Results 24 hrs Laboratory Tests Test 12/04/16 04:05 Sodium Level 145 H Potassium Level 3.9 Chloride Level 111 H Carbon Dioxide Level 22 Anion Gap 16 Blood Urea Nitrogen 7 Creatinine 0.47 L Glucose Level 124 Calcium Level 9.0 Vancomycin Level Trough 11.5 Medications Medications Current Medications Ondansetron HCl (Zofran Inj) 4 mg Q6H PRN IV NAUSEA AND/OR VOMITING Last administered on 11/30/16 21:12; Admin Dose 4 MG; Start 11/30/16 at 06:30 Acetaminophen (Tylenol Tab) 650 mg Q6H PRN PO PAIN LEVEL 1-3 OR FEVER Last administered on 12/03/16 23:47; Admin Dose 650 MG; Start 11/30/16 at 06:30 Acetaminophen (Tylenol Supp) 650 mg Q6H PRN [place] PAIN LEVEL 1-3 OR FEVER Last administered on 12/03/16 17:14; Admin Dose 650 MG; Start 11/30/16 at 06:30 Morphine Sulfate (morphine) 2 mg Q4H PRN IV PAIN LEVEL 7-10; Start 11/30/16 at 06:30 Enoxaparin Sodium (Lovenox) 40 mg DAILY SC Last administered on 12/04/16 08: 53; Admin Dose 40 MG; Start 11/30/16 at 09:00 Miscellaneous Information (Pending [facility] Order For Wound Care) This patient franklin... PRN PRN XX WOUND CARE; Start 11/30/16 at 10:30 Metoclopramide HCl 10 mg 10 mg Q6H PRN IV N/V Last administered on 11/30/16 22:48; Admin Dose 10 MG; Start 11/30/16 at 22:00 Potassium Chloride/Dextrose (D5W + KCl 20 Meq) 1,000 ml @ 100 mls/hr Q10H IV Last administered on 12/04/16 08:51; Admin Dose 100 MLS/HR; Start 12/02/16 at 10:30 Metoprolol Tartrate 25 mg 25 mg Q12 NGT Last administered on 12/04/16 08:52; Admin Dose 25 MG; Start 12/02/16 at 21:00 Vancomycin HCl 250 ml @ 62.5 mls/hr Q8H IVPB Last administered on 12/04/16 13:06; Admin Dose 62.5 MLS/HR; Start 12/02/16 at 21:00 Meropenem/Sodium Chloride (Merrem 500mg/50 ml(Pmx)) 50 ml @ 100 mls/hr Q8 IVPB Last administered on 12/04/16 13:06; Admin Dose 100 MLS/HR; Start 12/03/16 at 15:00 RAY LEMUS Dec 04, 2016 14:40
--- NOTE | 2016-12-04 19:13 | PN ---
Date/Time of Note Date/Time of Note DATE: 12/04/16 TIME: 19:10 Assessment/Plan VTE Prophylaxis VTE Prophylaxis Intervention: LMWH Lines/Catheters IV [facility] Saline Lock Assessment/Plan Chief Complaint/Hosp Course 1. Sepsis secondary to staph bacteremia and UTI from ESBL E. coli and Pseudomonas -Continue vancomycin and meropenem -Blood cultures show coag negative staph, urine culture shows ESBL E. coli and Pseudomona -ID consult appreciated 2. Trach/vent dependent respiratory failure -Continue vent support -Pulmonary consult appreciated 3. Anoxic brain injury -Patient with a history of drug overdose -Continue supportive care 4. PEG tube malfunction GI consultation appreciated, continue tube feeds as tolerated Prophylaxis: Lovenox Problems: Subjective 24 Hr Interval Summary Subjective hx not possible: pt non-verbal Exam/Review of Systems Vital Signs Vitals Vital Signs Date Time Temp Pulse Resp B/P Pulse Ox O2 Delivery O2 Flow Rate FiO2 12/04/16 17:20 80 20 99 35 12/04/16 15:33 99.2 139/80 12/03/16 23:45 Trach Collar Intake and Output 12/03/16 12/03/16 12/04/16 15:00 23:00 07:00 Intake Total 160 ml 800 ml Output Total 400 ml 1200 ml Balance -240 ml -400 ml Exam Constitutional: non-verbal Respiratory: clear to auscultation Gastrointestinal: soft, No distended Musculoskeletal: nl extremities to inspection Results Result Diagram: 12/03/16 0611 12/04/16 0405 Results 24 hrs Laboratory Tests Test 12/04/16 04:05 Sodium Level 145 H Potassium Level 3.9 Chloride Level 111 H Carbon Dioxide Level 22 Anion Gap 16 Blood Urea Nitrogen 7 Creatinine 0.47 L Glucose Level 124 Calcium Level 9.0 Vancomycin Level Trough 11.5 Medications Medications Current Medications Ondansetron HCl (Zofran Inj) 4 mg Q6H PRN IV NAUSEA AND/OR VOMITING Last administered on 11/30/16 21:12; Admin Dose 4 MG; Start 11/30/16 at 06:30 Acetaminophen (Tylenol Tab) 650 mg Q6H PRN PO PAIN LEVEL 1-3 OR FEVER Last administered on 12/03/16 23:47; Admin Dose 650 MG; Start 11/30/16 at 06:30 Acetaminophen (Tylenol Supp) 650 mg Q6H PRN [place] PAIN LEVEL 1-3 OR FEVER Last administered on 12/03/16 17:14; Admin Dose 650 MG; Start 11/30/16 at 06:30 Morphine Sulfate (morphine) 2 mg Q4H PRN IV PAIN LEVEL 7-10; Start 11/30/16 at 06:30 Enoxaparin Sodium (Lovenox) 40 mg DAILY SC Last administered on 12/04/16 08: 53; Admin Dose 40 MG; Start 11/30/16 at 09:00 Miscellaneous Information (Pending [facility] Order For Wound Care) This patient franklin... PRN PRN XX WOUND CARE; Start 11/30/16 at 10:30 Metoclopramide HCl 10 mg 10 mg Q6H PRN IV N/V Last administered on 11/30/16 22:48; Admin Dose 10 MG; Start 11/30/16 at 22:00 Potassium Chloride/Dextrose (D5W + KCl 20 Meq) 1,000 ml @ 100 mls/hr Q10H IV Last administered on 12/04/16 08:51; Admin Dose 100 MLS/HR; Start 12/02/16 at 10:30 Metoprolol Tartrate 25 mg 25 mg Q12 NGT Last administered on 12/04/16 08:52; Admin Dose 25 MG; Start 12/02/16 at 21:00 Vancomycin HCl 250 ml @ 62.5 mls/hr Q8H IVPB Last administered on 12/04/16 13:06; Admin Dose 62.5 MLS/HR; Start 12/02/16 at 21:00 Meropenem/Sodium Chloride (Merrem 500mg/50 ml(Pmx)) 50 ml @ 100 mls/hr Q8 IVPB Last administered on 12/04/16 13:06; Admin Dose 100 MLS/HR; Start 12/03/16 at 15:00 MONAE GANT Dec 04, 2016 19:13
--- NOTE | 2016-12-04 19:23 | CONS ---
Date/Time of Note Date/Time of Note DATE: 12/04/16 TIME: 19:22 Assessment/Plan Assessment/Plan Chief Complaint/Hosp Course Assessment: Sinus tachycardia - physiologic, now improved Hypertension Sepsis secondary to urinary tract infection - on antibiotics History of anoxic brain injury Chronic ventilator-dependent respiratory failure Recommendations: -continue metoprolol 25mg BID Problems: Consultation Date/Type/Reason Admit Date/Time Nov 30, 2016 at 04:30 Initial Consult Date 12/02/16 Type of Consultation: Cardiology 24 HR Interval Summary Free Text/Dictation No acute events. Heart rates controlled. Detailed Summary Additional Comments Unable to obtain review of systems due to patient's mental status. Exam/Review of Systems Vital Signs Vitals Vital Signs Date Time Temp Pulse Resp B/P Pulse Ox O2 Delivery O2 Flow Rate FiO2 12/04/16 17:20 80 20 99 35 12/04/16 15:33 99.2 139/80 12/03/16 23:45 Trach Collar Intake and Output 12/03/16 12/03/16 12/04/16 15:00 23:00 07:00 Intake Total 160 ml 800 ml Output Total 400 ml 1200 ml Balance -240 ml -400 ml Exam Constitutional: non-verbal, No alert Psych: No nl mood/affect, No no complaints Head: atraumatic, normocephalic Eyes: nl conjunctiva, nl lids ENMT: nl external ears & nose, nl nasal mucosa & septum Neck: other (tracheostomy), No jvd Respiratory: diminished breath sounds, No crackles/rales Cardiovascular: No murmurs/extra sounds, No regular rate and rhythm ( tachycardic) Gastrointestinal: other (gastrostomy tube), soft Musculoskeletal: other (contractures) Extremities: No clubbing, No cyanosis, No edema Neurological: No nl mental status, No nl speech Results Result Diagram: 12/03/16 0611 12/04/16 0405 Results 24 hrs Laboratory Tests Test 12/04/16 04:05 Sodium Level 145 H Potassium Level 3.9 Chloride Level 111 H Carbon Dioxide Level 22 Anion Gap 16 Blood Urea Nitrogen 7 Creatinine 0.47 L Glucose Level 124 Calcium Level 9.0 Vancomycin Level Trough 11.5 Medications Medications Current Medications Ondansetron HCl (Zofran Inj) 4 mg Q6H PRN IV NAUSEA AND/OR VOMITING Last administered on 11/30/16t 21:12; Admin Dose 4 MG; Start 11/30/16 at 06:30 Acetaminophen (Tylenol Tab) 650 mg Q6H PRN PO PAIN LEVEL 1-3 OR FEVER Last administered on 12/03/16 23:47; Admin Dose 650 MG; Start 11/30/16 at 06:30 Acetaminophen (Tylenol Supp) 650 mg Q6H PRN [place] PAIN LEVEL 1-3 OR FEVER Last administered on 12/03/16 17:14; Admin Dose 650 MG; Start 11/30/16 at 06:30 Morphine Sulfate (morphine) 2 mg Q4H PRN IV PAIN LEVEL 7-10; Start 11/30/16 at 06:30 Enoxaparin Sodium (Lovenox) 40 mg DAILY SC Last administered on 12/04/16 08: 53; Admin Dose 40 MG; Start 11/30/16 at 09:00 Miscellaneous Information (Pending [facility] Order For Wound Care) This patient franklin... PRN PRN XX WOUND CARE; Start 11/30/16 at 10:30 Metoclopramide HCl 10 mg 10 mg Q6H PRN IV N/V Last administered on 11/30/16 22:48; Admin Dose 10 MG; Start 11/30/16 at 22:00 Potassium Chloride/Dextrose (D5W + KCl 20 Meq) 1,000 ml @ 100 mls/hr Q10H IV Last administered on 12/04/16 08:51; Admin Dose 100 MLS/HR; Start 12/02/16 at 10:30 Metoprolol Tartrate 25 mg 25 mg Q12 NGT Last administered on 12/04/16 08:52; Admin Dose 25 MG; Start 12/02/16 at 21:00 Vancomycin HCl 250 ml @ 62.5 mls/hr Q8H IVPB Last administered on 12/04/16 13:06; Admin Dose 62.5 MLS/HR; Start 12/02/16 at 21:00 Meropenem/Sodium Chloride (Merrem 500mg/50 ml(Pmx)) 50 ml @ 100 mls/hr Q8 IVPB Last administered on 12/04/16 13:06; Admin Dose 100 MLS/HR; Start 12/03/16 at 15:00 CARMINA LI MD Dec 04, 2016 19:23
--- NOTE | 2016-12-04 19:52 | CONS ---
Date/Time of Note Date/Time of Note DATE: 12/04/16 TIME: 19:50 Assessment/Plan Assessment/Plan Chief Complaint/Hosp Course ID PROGRESS NOTE CURRENT ABX: DAY # 4 => Vanco IV + MERREM s/p Zosyn #2-> DC'd 12/04 24H INTERVAL SUMMARY * Clinically status quo === Non-communicative = chronic encephalopathy * TMax today 99.2 -- yesterday 99.6, WBC normalized, intermittent tachycardia * CXR: No acute cardiopulmonary process. 2D ECHO: LVEF 60-65%. * Microbiology URINE CULTURE Final Organism 1 ESCHERICHIA COLI (ESBL) COLONY COUNT >100,000 CFU/ml . MULTI DRUG RESISTANT ORGANISM Organism 2 PSEUDOMONAS AERUGINOSA COLONY COUNT >100,000 CFU/ml ECOLI ESBL P.AERUG M.I.C. RX M.I.C. RX --------- --- --------- --- AMIKACIN 4 S <=2 S AMPICILLIN >=32 R AZTREONAM S CEFAZOLIN R CEFEPIME >=64 R <=1 S CEFOTAXIME R CEFTAZIDIME <=1 S CIPROFLOXACIN >=4 R <=0.25 S GENTAMICIN <=1 S <=1 S IMIPENEM <=0.25 S 1 S LEVOFLOXACIN >=8 R 0.25 S NITROFURANTOIN <=16 S TOBRAMYCIN 8 I <=1 S TRIMETHOPRIM/SULFAMETHOXAZOLE >=320 R PIPERACILLIN/TAZOBACTAM 8 S <=4 S Physical Exam Physical Exam Constitutional: Chronic vegetative, non-communicative, looks comfortable on the Vent HEENT:Eyes open, no tracking, moist oral membranes Neck: (+)Trach -> stoma site clean, secure to Vent Respiratory: Clear anterior, vented Cardiovascular: NSR on tele, radial pulses 2+ bilaterally Gastrointestinal: Soft, NT, peg intact Extremities: Warm, atrophic Neurological: Vegetative, no purposeful movement seen ID ASSESSMENT 36-yo M w/PMHx heroin overdose and anoxic brain injury admit with: 1. Sepsis on admission w/fevers 11/29/16 101.3, tachycardia, lactic acid elevated to 1.9 (high normal) 2. 11/29/16 Bacteremia w/BCx (+)2/2 bottles: COAGULASE NEGATIVE STAPH * Probable skin contaminant, he presents without indwelling lines, nor devices 3. Polymicrobial complicated MDRO GNR UTI: URINE CULTURE Final Organism 1 ESCHERICHIA COLI (ESBL) >100,000 CFU/ml Organism 2 PSEUDOMONAS AERUGINOSA >100,000 CFU/ml 4. Chronic tracheostomy with Ventilator dependent respiratory failure. 5. Dysphagia -> G-tube 6. Stable hypertension. 7. Pressure ulcers -> See photos ABX ALLERGIES: KNDA CURRENT ABX: DAY # 4 => Vanco IV + MERREM s/p Zosyn #2-> DC'd 12/04 ID RECOMMENDATIONS 1.Zosyn changed to MERREM => ABX of choice for ESBL * RATIONALE: While MICRO sensitivities demonstrate E.Coli-ESBL as SENSITIVE to ZOSYN "in VITRO"; this is not approved ABX for ESBL tx "In-VIVO" as the presence of ESBL will render Zosyn RESISTANT in a matter of short term days => high risk failure. 2. Continue Vanco IV => f/u on repeat BCx sent 12/02/16 if they are negative then DC Vanco as suspect false + skin contaminated samples. 3. When cleared by primary for DC-> Patient may DC back to SNF on Merrem UNTIL LAST DAY 12/09/16 . Problems: Consultation Date/Type/Reason Admit Date/Time Nov 30, 2016 at 04:30 Initial Consult Date 12/02/16 Type of Consultation: ID Exam/Review of Systems Vital Signs Vitals Vital Signs Date Time Temp Pulse Resp B/P Pulse Ox O2 Delivery O2 Flow Rate FiO2 12/04/16 17:20 80 20 99 35 12/04/16 15:33 99.2 139/80 12/03/16 23:45 Trach Collar Intake and Output 12/03/16 12/03/16 12/04/16 15:00 23:00 07:00 Intake Total 160 ml 800 ml Output Total 400 ml 1200 ml Balance -240 ml -400 ml Results Result Diagram: 12/03/16 0611 12/04/16 0405 Results 24 hrs Laboratory Tests Test 12/04/16 04:05 Sodium Level 145 H Potassium Level 3.9 Chloride Level 111 H Carbon Dioxide Level 22 Anion Gap 16 Blood Urea Nitrogen 7 Creatinine 0.47 L Glucose Level 124 Calcium Level 9.0 Vancomycin Level Trough 11.5 Medications Medications Current Medications Ondansetron HCl (Zofran Inj) 4 mg Q6H PRN IV NAUSEA AND/OR VOMITING Last administered on 11/30/16 21:12; Admin Dose 4 MG; Start 11/30/16 at 06:30 Acetaminophen (Tylenol Tab) 650 mg Q6H PRN PO PAIN LEVEL 1-3 OR FEVER Last administered on 12/03/16 23:47; Admin Dose 650 MG; Start 11/30/16 at 06:30 Acetaminophen (Tylenol Supp) 650 mg Q6H PRN [place] PAIN LEVEL 1-3 OR FEVER Last administered on 12/03/16 17:14; Admin Dose 650 MG; Start 11/30/16 at 06:30 Morphine Sulfate (morphine) 2 mg Q4H PRN IV PAIN LEVEL 7-10; Start 11/30/16 at 06:30 Enoxaparin Sodium (Lovenox) 40 mg DAILY SC Last administered on 12/04/16 08: 53; Admin Dose 40 MG; Start 11/30/16 at 09:00 Miscellaneous Information (Pending [facility] Order For Wound Care) This patient franklin... PRN PRN XX WOUND CARE; Start 11/30/16 at 10:30 Metoclopramide HCl 10 mg 10 mg Q6H PRN IV N/V Last administered on 11/30/16 22:48; Admin Dose 10 MG; Start 11/30/16 at 22:00 Potassium Chloride/Dextrose (D5W + KCl 20 Meq) 1,000 ml @ 100 mls/hr Q10H IV Last administered on 12/04/16 08:51; Admin Dose 100 MLS/HR; Start 12/02/16 at 10:30 Metoprolol Tartrate 25 mg 25 mg Q12 NGT Last administered on 12/04/16 08:52; Admin Dose 25 MG; Start 12/02/16 at 21:00 Vancomycin HCl 250 ml @ 62.5 mls/hr Q8H IVPB Last administered on 12/04/16 13:06; Admin Dose 62.5 MLS/HR; Start 12/02/16 at 21:00 Meropenem/Sodium Chloride (Merrem 500mg/50 ml(Pmx)) 50 ml @ 100 mls/hr Q8 IVPB Last administered on 12/04/16t 13:06; Admin Dose 100 MLS/HR; Start 12/03/16 at 15:00 GANGA WHALEY NP Dec 04, 2016 19:52
[2016-12-05] VITALS (24 sets, daily range): BP systolic 133–147; BP diastolic 76–91; PULSE 78–91; RESP 16–36
[2016-12-05] MEDS: ACETAMINOPHEN 325 MG TAB PO PRN (00:49)
[2016-12-05] MEDS: D5W + KCL 20 MEQ 1,000 ML IV SCH ×2 (04:57→18:28)
[2016-12-05] MEDS: MEROPENEM 500MG/50 ML (PMX) 50 ML IVPB SCH ×3 (05:15→23:18)
[2016-12-05] MEDS: VANCOMYCIN 1 GM in NS 250 ML IVPB SCH ×3 (06:07→21:36)
[2016-12-05] MEDS: METOPROLOL 25 MG TAB NGT SCH ×2 (08:57→21:39)
[2016-12-05] MEDS: ENOXAPARIN 40 MG/0.4 ML SYG SC SCH (08:58)
--- NOTE | 2016-12-05 12:57 | CONS ---
Date/Time of Note Date/Time of Note DATE: 12/05/16 TIME: 12:55 Assessment/Plan Assessment/Plan Additional Assessment/Plan Ventilator setting; AC of 16, tidal volume 500, PEEP of 5, 35% FiO2. Assessment and recommendations; 1. Patient admitted with UTI and sepsis with significant clinical improvement. Currently on appropriate antibiotic coverage. 2. Severe anoxic brain injury with persistent vegetative state, patient maintained on chronic invasive mechanical ventilation. 3. History of hypertension. Continue current treatment. Consider discharge. Continue IV antibiotics per ID recommendations. Consultation Date/Type/Reason Admit Date/Time Nov 30, 2016 at 04:30 Initial Consult Date 12/02/16 Type of Consultation: Pulmonary 24 HR Interval Summary Free Text/Dictation Patient's condition remains stable. Has remained hemodynamically stable. No untoward events reported. General exam; young male, on ventilator via tracheostomy, unresponsive, patient remains in persistent vegetative state. Exam/Review of Systems Vital Signs Vitals Vital Signs Date Time Temp Pulse Resp B/P Pulse Ox O2 Delivery O2 Flow Rate FiO2 12/05/16 11:42 98.7 84 19 133/84 100 12/05/16 11:20 35 12/03/16 23:45 Trach Collar Intake and Output 12/04/16 12/04/16 12/05/16 15:00 23:00 07:00 Intake Total 700 ml 720 ml Output Total 1400 ml 800 ml Balance -700 ml -80 ml Exam HEENT exam; supple neck, no JVD. No lymphadenopathy. Midline trachea. No thyromegaly. Tracheostomy in place. Patient has fair dentition. Multiple well -healed cranial scars are present. Chest exam; clear to auscultation. S1-S2 audible, no murmurs. Regular rhythm. Abdomen exam; soft, no organomegaly. G-tube in place. Bowel sounds audible. Extremity exam; no peripheral edema. 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 Results Result Diagram: 12/05/16 0535 12/05/16 0535 Results 24 hrs Laboratory Tests Test 12/05/16 05:35 White Blood Count 9.1 # Red Blood Count 4.06 L Hemoglobin 12.3 L Hematocrit 38.2 L Mean Corpuscular Volume 94.1 Mean Corpuscular Hemoglobin 30.3 Mean Corpuscular Hemoglobin Concent 32.2 Red Cell Distribution Width 12.8 Platelet Count 384 Mean Platelet Volume 10.0 Neutrophils % 64.2 Lymphocytes % 24.8 Monocytes % 6.9 Eosinophils % 3.1 Basophils % 0.4 Nucleated Red Blood Cells % 0.0 Neutrophils # 5.8 Lymphocytes # 2.2 Monocytes # 0.6 Eosinophils # 0.3 Basophils # 0.0 Nucleated Red Blood Cells # 0.0 Sodium Level 141 Potassium Level 3.6 Chloride Level 104 Carbon Dioxide Level 25 Anion Gap 16 Blood Urea Nitrogen 6 L Creatinine 0.45 L Glucose Level 124 Calcium Level 8.9 Medications Medications Current Medications Ondansetron HCl (Zofran Inj) 4 mg Q6H PRN IV NAUSEA AND/OR VOMITING Last administered on 11/30/16 21:12; Admin Dose 4 MG; Start 11/30/16 at 06:30 Acetaminophen (Tylenol Tab) 650 mg Q6H PRN PO PAIN LEVEL 1-3 OR FEVER Last administered on 12/05/16 00:49; Admin Dose 650 MG; Start 11/30/16 at 06:30 Acetaminophen (Tylenol Supp) 650 mg Q6H PRN [place] PAIN LEVEL 1-3 OR FEVER Last administered on 12/03/16 17:14; Admin Dose 650 MG; Start 11/30/16 at 06:30 Morphine Sulfate (morphine) 2 mg Q4H PRN IV PAIN LEVEL 7-10; Start 11/30/16 at 06:30 Enoxaparin Sodium (Lovenox) 40 mg DAILY SC Last administered on 12/05/16 08: 58; Admin Dose 40 MG; Start 11/30/16 at 09:00 Miscellaneous Information (Pending Santyl Order For Wound Care) This patient franklin... PRN PRN XX WOUND CARE; Start 11/30/16 at 10:30 Metoclopramide HCl 10 mg 10 mg Q6H PRN IV N/V Last administered on 11/30/16 22:48; Admin Dose 10 MG; Start 11/30/16 at 22:00 Potassium Chloride/Dextrose (D5W + KCl 20 Meq) 1,000 ml @ 100 mls/hr Q10H IV Last administered on 12/05/16 04:57; Admin Dose 100 MLS/HR; Start 12/02/16 at 10:30 Metoprolol Tartrate 25 mg 25 mg Q12 NGT Last administered on 12/05/16 08:57; Admin Dose 25 MG; Start 12/02/16 at 21:00 Vancomycin HCl 250 ml @ 62.5 mls/hr Q8H IVPB Last administered on 12/05/16 12:51; Admin Dose 62.5 MLS/HR; Start 12/02/16 at 21:00 Meropenem/Sodium Chloride (Merrem 500mg/50 ml(Pmx)) 50 ml @ 100 mls/hr Q8 IVPB Last administered on 12/05/16 05:15; Admin Dose 100 MLS/HR; Start 12/03/16 at 15:00 DERICK ROBLEDO Dec 05, 2016 12:57
--- NOTE | 2016-12-05 14:31 | PN ---
Date/Time of Note Date/Time of Note DATE: 12/05/16 TIME: 14:26 Assessment/Plan VTE Prophylaxis VTE Prophylaxis Intervention: LMWH Lines/Catheters IV C[facility]from [facility] Saline Lock Urinary Cath still in place: Yes Reason Cath still needed: urinary retention Assessment/Plan Chief Complaint/Hosp Course 36 yo male with chronic encephalopathy and respirator failure 2/2 anoxic brain injury from overdose presenting with sepsis from CoNS bacteremia: - Continue vancomycin per ID - Mechanical ventilation for respiratory failure - Tube feeds - Ready for discharge to facility Problems: Subjective 24 Hr Interval Summary Free Text/Dictation Continues on IV vanco for CoNS bactremia, cultures cleared Exam/Review of Systems Vital Signs Vitals Vital Signs Date Time Temp Pulse Resp B/P Pulse Ox O2 Delivery O2 Flow Rate FiO2 12/05/16 13:05 90 21 100 35 12/05/16 11:42 98.7 133/84 12/03/16 23:45 Trach Collar Intake and Output 12/04/16 12/04/16 12/05/16 15:00 23:00 07:00 Intake Total 700 ml 720 ml Output Total 1400 ml 800 ml Balance -700 ml -80 ml Exam Constitutional: alert, oriented, well developed Psych: nl mood/affect, no complaints Head: atraumatic, normocephalic Eyes: EOMI, PERRL, nl conjunctiva, nl lids, nl sclera ENMT: nl external ears & nose, nl lips & teeth, nl nasal mucosa & septum Neck: non-tender, supple Respiratory: clear to auscultation, normal air movement Cardiovascular: nl pulses, regular rate and rhythm Gastrointestinal: nl liver, spleen, non-tender, soft Musculoskeletal: nl extremities to inspection, nl gait and stance Extremities: normal pulses Neurological: 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 CATCHER TOBACCO II-XII intact, nl mental status, nl speech, nl strength Skin: nl turgor, No rash or lesions Lymph: nl lymph nodes Results Result Diagram: 12/05/1635 12/05/16 0535 Results 24 hrs Laboratory Tests Test 12/05/16 05:35 White Blood Count 9.1 # Red Blood Count 4.06 L Hemoglobin 12.3 L Hematocrit 38.2 L Mean Corpuscular Volume 94.1 Mean Corpuscular Hemoglobin 30.3 Mean Corpuscular Hemoglobin Concent 32.2 Red Cell Distribution Width 12.8 Platelet Count 384 Mean Platelet Volume 10.0 Neutrophils % 64.2 Lymphocytes % 24.8 Monocytes % 6.9 Eosinophils % 3.1 Basophils % 0.4 Nucleated Red Blood Cells % 0.0 Neutrophils # 5.8 Lymphocytes # 2.2 Monocytes # 0.6 Eosinophils # 0.3 Basophils # 0.0 Nucleated Red Blood Cells # 0.0 Sodium Level 141 Potassium Level 3.6 Chloride Level 104 Carbon Dioxide Level 25 Anion Gap 16 Blood Urea Nitrogen 6 L Creatinine 0.45 L Glucose Level 124 Calcium Level 8.9 Medications Medications Current Medications Ondansetron HCl (Zofran Inj) 4 mg Q6H PRN IV NAUSEA AND/OR VOMITING Last administered on 11/30/16 21:12; Admin Dose 4 MG; Start 11/30/16 at 06:30 Acetaminophen (Tylenol Tab) 650 mg Q6H PRN PO PAIN LEVEL 1-3 OR FEVER Last administered on 12/05/16 00:49; Admin Dose 650 MG; Start 11/30/16 at 06:30 Acetaminophen (Tylenol Supp) 650 mg Q6H PRN [place] PAIN LEVEL 1-3 OR FEVER Last administered on 12/03/16 17:14; Admin Dose 650 MG; Start 11/30/16 at 06:30 Morphine Sulfate (morphine) 2 mg Q4H PRN IV PAIN LEVEL 7-10; Start 11/30/16 at 06:30 Enoxaparin Sodium (Lovenox) 40 mg DAILY SC Last administered on 12/05/16 08: 58; Admin Dose 40 MG; Start 11/30/16 at 09:00 Miscellaneous Information (Pending Santyl Order For Wound Care) This patient franklin... PRN PRN XX WOUND CARE; Start 11/30/16 at 10:30 Metoclopramide HCl 10 mg 10 mg Q6H PRN IV N/V Last administered on 11/30/16 22:48; Admin Dose 10 MG; Start 11/30/16 at 22:00 Potassium Chloride/Dextrose (D5W + KCl 20 Meq) 1,000 ml @ 100 mls/hr Q10H IV Last administered on 12/05/16 04:57; Admin Dose 100 MLS/HR; Start 12/02/16 at 10:30 Metoprolol Tartrate 25 mg 25 mg Q12 NGT Last administered on 12/05/16 08:57; Admin Dose 25 MG; Start 12/02/16 at 21:00 Vancomycin HCl 250 ml @ 62.5 mls/hr Q8H IVPB Last administered on 12/05/16 12:51; Admin Dose 62.5 MLS/HR; Start 12/02/16 at 21:00 Meropenem/Sodium Chloride (Merrem 500mg/50 ml(Pmx)) 50 ml @ 100 mls/hr Q8 IVPB Last administered on 12/05/16 14:19; Admin Dose 100 MLS/HR; Start 12/03/16 at 15:00 KAROLYN VALVERDE MD Dec 05, 2016 14:31
[2016-12-06] VITALS (26 sets, daily range): BP systolic 134–169; BP diastolic 83–103; PULSE 79–88; RESP 17–28
[2016-12-06] MEDS: D5W + KCL 20 MEQ 1,000 ML IV SCH (04:30)
[2016-12-06] MEDS: VANCOMYCIN 1 GM in NS 250 ML IVPB SCH ×3 (05:17→20:59)
[2016-12-06] MEDS: MEROPENEM 500MG/50 ML (PMX) 50 ML IVPB SCH ×3 (06:08→22:53)
--- NOTE | 2016-12-06 06:24 | PN ---
DATE: 12/05/2016 SUBJECTIVE: No acute events overnight. The patient is lying comfortably in bed, afebrile. LABORATORY DATA: WBC 9.1, no shift, no bands. BUN 6, creatinine 0.45. MICROBIOLOGY: Blood culture on admission grew coagulase-negative staph species with repeat blood cu ltures being negative. Urine culture on admission grew E. coli, ESBL and Pseudomonas aeruginosa. S tool for C. diff came back negative. DIAGNOSTICS: Chest x-ray on admission revealed no pneumonia. INDWELLINGS: Trach, PEG, Aceves. ANTIMICROBIALS: The patient is on: 1. Vancomycin. 2. Meropenem. PHYSICAL EXAMINATION: GENERAL: This is a chronically ill-appearing, middle-aged man who is in persistent vegetat jacqueline state. HEENT: Head atraumatic, normocephalic. Sclerae anicteric. Buccal mucosa dry. NECK: Supple. CHEST: Rise symmetrical. Breath sounds diminished to bases. HEART: S1, S2. ABDOMEN: Soft, bowel tones present. EXTREMITIES: Without cyanosis. ASSESSMENT: 1. Status post sepsis. 2. Polymicrobial multi-drug resistant urinary tract infection. 3. Chronic respiratory failure. 4. Dysphagia. 5. Persistent vegetative state. PLAN: Remains stable. Continue present care, antibiotics, vent support per pulmonary. Dictated By: NARESH NAVARRO CEO for [employer] Conf#: [id number] DID#: [id number]
--- NOTE | 2016-12-06 06:24 | PN ---
DATE: 12/05/2016 SUBJECTIVE: No acute events overnight. The patient is lying comfortably in bed, afebrile. LABORATORY DATA: WBC 9.1, no shift, no bands. BUN 6, creatinine 0.45. MICROBIOLOGY: Blood culture on admission grew coagulase-negative staph species with repeat blood cu ltures being negative. Urine culture on admission grew E. coli, ESBL and Pseudomonas aeruginosa. S tool for C. diff came back negative. DIAGNOSTICS: Chest x-ray on admission revealed no pneumonia. INDWELLINGS: Trach, PEG, Aceves. ANTIMICROBIALS: The patient is on: 1. Vancomycin. 2. Meropenem. PHYSICAL EXAMINATION: GENERAL: This is a chronically ill-appearing, middle-aged man who is in persistent vegetat jacqueline state. HEENT: Head atraumatic, normocephalic. Sclerae anicteric. Buccal mucosa dry. NECK: Supple. CHEST: Rise symmetrical. Breath sounds diminished to bases. HEART: S1, S2. ABDOMEN: Soft, bowel tones present. EXTREMITIES: Without cyanosis. ASSESSMENT: 1. Status post sepsis. 2. Polymicrobial multi-drug resistant urinary tract infection. 3. Chronic respiratory failure. 4. Dysphagia. 5. Persistent vegetative state. PLAN: Remains stable. Continue present care, antibiotics, vent support per pulmonary. Dictated By: NARESH NAVARRO MANAGER OF HEALTH for [employer] Conf#: [id number] DID#: [id number]
--- NOTE | 2016-12-06 06:24 | PN ---
DATE: 12/05/2016 SUBJECTIVE: No acute events overnight. The patient is lying comfortably in bed, afebrile. LABORATORY DATA: WBC 9.1, no shift, no bands. BUN 6, creatinine 0.45. MICROBIOLOGY: Blood culture on admission grew coagulase-negative staph species with repeat blood cu ltures being negative. Urine culture on admission grew E. coli, ESBL and Pseudomonas aeruginosa. S tool for C. diff came back negative. DIAGNOSTICS: Chest x-ray on admission revealed no pneumonia. INDWELLINGS: Trach, PEG, Aceves. ANTIMICROBIALS: The patient is on: 1. Vancomycin. 2. Meropenem. PHYSICAL EXAMINATION: GENERAL: This is a chronically ill-appearing, middle-aged man who is in persistent vegetat jacqueline state. HEENT: Head atraumatic, normocephalic. Sclerae anicteric. Buccal mucosa dry. NECK: Supple. CHEST: Rise symmetrical. Breath sounds diminished to bases. HEART: S1, S2. ABDOMEN: Soft, bowel tones present. EXTREMITIES: Without cyanosis. ASSESSMENT: 1. Status post sepsis. 2. Polymicrobial multi-drug resistant urinary tract infection. 3. Chronic respiratory failure. 4. Dysphagia. 5. Persistent vegetative state. PLAN: Remains stable. Continue present care, antibiotics, vent support per pulmonary. Dictated By: NARESH NAVARRO LOG HOOKER for [employer] Conf#: [id number] DID#: [id number]
[2016-12-06] MEDS: METOPROLOL 25 MG TAB NGT SCH ×2 (08:54→21:00)
[2016-12-06] MEDS: ENOXAPARIN 40 MG/0.4 ML SYG SC SCH (08:56)
--- NOTE | 2016-12-06 10:15 | PN ---
Date/Time of Note Date/Time of Note DATE: 12/06/16 TIME: 10:13 Assessment/Plan VTE Prophylaxis VTE Prophylaxis Intervention: SCD's Lines/Catheters IV Catheter Type (from Nrsg): Saline Lock Urinary Cath still in place: Yes Reason Cath still needed: other (indicate) (moniotr out-put) Assessment/Plan Chief Complaint/Hosp Course Assessment: Anoxic brain injury/ secondary to drug overdose Dysphagia- needing PEG for TF- not tolerating R/o ileus vs obstruction Sepsis secondary to staph bacteremia and UTI- on antibiotics Trach/vent dependent respiratory failure Plan: Cont to increase TF as tolerated C-diff negative D/c planning Pt to continue previous type of TF at facility Patient seen in collaboration with Subjective: Course reviewed with nursing staff Patient interviewed and examined All labs, imaging and other results reviewed The patient is stable, dari TF, D/c planning PHYSICAL EXAMINATION: GENERAL: Well developed, well nourished, alert, non-verbal SKIN: No lesions, no stigmata chronic liver disease, no evidence of bleeding diathesis, g-tube LYMPHATIC: No palpable lymphadenopathy. HEAD: Normocephalic, atraumatic, no tenderness. EYES: Pupils equal reactive to light and accommodation, full extraocular movements, sclera clear, non-icteric, no discharge. EARS/NOSE AND THROAT: Ears normal, nose normal, oropharynx normal, oral membranes well hydrated without lesions. NECK: Supple, no masses, thyroid normal, JVP within normal limits, carotids normal without bruits. CHEST: Inspection within normal limits. CARDIOVASCULAR: Heart: Regular rate and rhythm, no murmurs, gallops or rubs. Peripheral pulses present within normal limits, no cyanosis, clubbing or edemas. No pulsatile abdominal mass RESPIRATORY: Lungs clear to auscultation, trach vent- dependent GASTROINTESTINAL AND LIVER: Abdomen: Soft, non tenderness, non-distended, no hernias, no masses, no organomegaly, no ascites, no guarding, no rebound tenderness, normoactive bowel sounds. g-tube Rectal: Deferred. GENITOURINARY: Male genitalia within normal limits, FC in place EXTREMITIES: No cyanosis, clubbing or edema. Problems: Exam/Review of Systems Vital Signs Vitals Vital Signs Date Time Temp Pulse Resp B/P Pulse Ox O2 Delivery O2 Flow Rate FiO2 12/06/16 09:05 82 22 100 35 12/06/16 07:50 97.9 148/88 12/03/16 23:45 Trach Collar Intake and Output 12/05/16 12/05/16 12/06/16 15:00 23:00 07:00 Intake Total 300 ml 750 ml 1750 ml Output Total 1300 ml 850 ml Balance 300 ml -550 ml 900 ml Results Result Diagram: 12/05/16 0535 12/05/16 0535 Medications Medications Current Medications Ondansetron HCl (Zofran Inj) 4 mg Q6H PRN IV NAUSEA AND/OR VOMITING Last administered on 11/30/16 21:12; Admin Dose 4 MG; Start 11/30/16 at 06:30 Acetaminophen (Tylenol Tab) 650 mg Q6H PRN PO PAIN LEVEL 1-3 OR FEVER Last administered on 12/05/16 00:49; Admin Dose 650 MG; Start 11/30/16 at 06:30 Acetaminophen (Tylenol Supp) 650 mg Q6H PRN [place] PAIN LEVEL 1-3 OR FEVER Last administered on 12/03/16 17:14; Admin Dose 650 MG; Start 11/30/16 at 06:30 Morphine Sulfate (morphine) 2 mg Q4H PRN IV PAIN LEVEL 7-10; Start 11/30/16 at 06:30 Enoxaparin Sodium (Lovenox) 40 mg DAILY SC Last administered on 12/06/16 08: 56; Admin Dose 40 MG; Start 11/30/16 at 09:00 [facility] This patient franklin... PRN PRN XX WOUND CARE; Start 11/30/16 at 10:30 Metoclopramide HCl (Reglan) 10 mg Q6H PRN IV N/V Last administered on 22:48; Admin Dose 10 MG; Start 11/30/16 at 22:00 Metoprolol Tartrate 25 mg 25 mg Q12 NGT Last administered on 12/06/16 08:54; Admin Dose 25 MG; Start 12/02/16 at 21:00 Vancomycin HCl 250 ml @ 62.5 mls/hr Q8H IVPB Last administered on 12/06/16 05:17; Admin Dose 62.5 MLS/HR; Start 12/02/16 at 21:00 Meropenem/Sodium Chloride (Merrem 500mg/50 ml(Pmx)) 50 ml @ 100 mls/hr Q8 IVPB Last administered on 12/06/16t 06:08; Admin Dose 100 MLS/HR; Start 12/03/16 at 15:00 RAY LEMUS Dec 06, 2016 10:15
--- NOTE | 2016-12-06 12:16 | CONS ---
Date/Time of Note Date/Time of Note DATE: 12/06/16 TIME: 12:14 Assessment/Plan Assessment/Plan Additional Assessment/Plan Ventilator setting; AC of 16, tidal volume 500, PEEP of 5, 35% FiO2. Assessment and recommendations; 1. Patient admitted for sepsis from UTI currently on appropriate antibiotic regimen. 2. Severe anoxic brain injury patient remains in persistent vegetative state and remains chronically ventilator dependent. Continue current supportive care. Consultation Date/Type/Reason Admit Date/Time Nov 30, 2016 at 04:30 Initial Consult Date 12/02/16 Type of Consultation: Pulmonary 24 HR Interval Summary Free Text/Dictation Patient's condition remains stable. Remains in persistent vegetative state. Patient has remained hemodynamically stable. General exam; young male, on ventilator via tracheostomy, unresponsive, currently in no distress. Exam/Review of Systems Vital Signs Vitals Vital Signs Date Time Temp Pulse Resp B/P Pulse Ox O2 Delivery O2 Flow Rate FiO2 12/06/16 11:37 98.7 86 17 135/83 100 12/06/16 11:00 35 12/03/16 23:45 Trach Collar Intake and Output 12/05/16 12/05/16 12/06/16 15:00 23:00 07:00 Intake Total 300 ml 750 ml 1750 ml Output Total 1300 ml 850 ml Balance 300 ml -550 ml 900 ml Exam HEENT exam; supple neck, no JVD. No lymphadenopathy. Midline trachea. No thyromegaly. Multiple well-healed cranial scars are present. Tracheostomy in place. Patient has fair dentition. Chest exam; clear to auscultation. S1-S2 audible, no murmurs. Regular rhythm. Abdomen exam; soft, G-tube in place. No organomegaly. Bowel sounds audible. Extremity exam; no peripheral edema. [employer] exam; patient remains in persistent vegetative state. Results Result Diagram: 12/05/16 0535 12/05/16 0535 Medications Medications Current Medications Ondansetron HCl (Zofran Inj) 4 mg Q6H PRN IV NAUSEA AND/OR VOMITING Last administered on 11/30/16 21:12; Admin Dose 4 MG; Start 11/30/16 at 06:30 Acetaminophen (Tylenol Tab) 650 mg Q6H PRN PO PAIN LEVEL 1-3 OR FEVER Last administered on 12/05/16 00:49; Admin Dose 650 MG; Start 11/30/16 at 06:30 Acetaminophen (Tylenol Supp) 650 mg Q6H PRN [place] PAIN LEVEL 1-3 OR FEVER Last administered on 12/03/16 17:14; Admin Dose 650 MG; Start 11/30/16 at 06:30 Morphine Sulfate (morphine) 2 mg Q4H PRN IV PAIN LEVEL 7-10; Start 11/30/16 at 06:30 Enoxaparin Sodium (Lovenox) 40 mg DAILY SC Last administered on 12/06/16 08: 56; Admin Dose 40 MG; Start 11/30/16 at 09:00 Miscellaneous Information (Pending Santyl Order For Wound Care) This patient franklin... PRN PRN XX WOUND CARE; Start 11/30/16 at 10:30 Metoclopramide HCl (Reglan) 10 mg Q6H PRN IV N/V Last administered on 22:48; Admin Dose 10 MG; Start 11/30/16 at 22:00 Metoprolol Tartrate 25 mg 25 mg Q12 NGT Last administered on 12/06/16 08:54; Admin Dose 25 MG; Start 12/02/16 at 21:00 Vancomycin HCl 250 ml @ 62.5 mls/hr Q8H IVPB Last administered on 12/06/16 05:17; Admin Dose 62.5 MLS/HR; Start 12/02/16 at 21:00 Meropenem/Sodium Chloride (Merrem 500mg/50 ml(Pmx)) 50 ml @ 100 mls/hr Q8 IVPB Last administered on 12/06/16 06:08; Admin Dose 100 MLS/HR; Start 12/03/16 at 15:00 Collagenase (Santyl) 1 applic DAILY TOP ; Start 12/07/16 at 09:00 DERICK ROBLEDO Dec 06, 2016 12:16
--- NOTE | 2016-12-06 14:49 | CONS ---
Date/Time of Note Date/Time of Note DATE: 12/06/16 TIME: 14:49 Consult Date/Type/Reason Admit Date/Time Nov 30, 2016 at 04:30 Initial Consult Date 12/02/16 Type of Consultation: ID Objective Vital Signs Date Time Temp Pulse Resp B/P Pulse Ox O2 Delivery O2 Flow Rate FiO2 12/06/16 13:00 78 21 100 35 12/06/16 11:37 98.7 135/83 12/03/16 23:45 Trach Collar Intake and Output 12/05/16 12/05/16 12/06/16 15:00 23:00 07:00 Intake Total 300 ml 750 ml 1750 ml Output Total 1300 ml 850 ml Balance 300 ml -550 ml 900 ml Results/Medications Result Diagram: 12/05/16 0535 12/05/16 0535 Medications Current Medications Ondansetron HCl (Zofran Inj) 4 mg Q6H PRN IV NAUSEA AND/OR VOMITING Last administered on 11/30/16 21:12; Admin Dose 4 MG; Start 11/30/16 at 06:30 Acetaminophen (Tylenol Tab) 650 mg Q6H PRN PO PAIN LEVEL 1-3 OR FEVER Last administered on 12/05/16 00:49; Admin Dose 650 MG; Start 11/30/16 at 06:30 Acetaminophen (Tylenol Supp) 650 mg Q6H PRN [place] PAIN LEVEL 1-3 OR FEVER Last administered on 12/03/16 17:14; Admin Dose 650 MG; Start 11/30/16 at 06:30 Morphine Sulfate (morphine) 2 mg Q4H PRN IV PAIN LEVEL 7-10; Start 11/30/16 at 06:30 Enoxaparin Sodium (Lovenox) 40 mg DAILY SC Last administered on 12/06/16 08: 56; Admin Dose 40 MG; Start 11/30/16 at 09:00 Miscellaneous Information (Pending Santyl Order For Wound Care) This patient franklin... PRN PRN XX WOUND CARE; Start 11/30/16 at 10:30 Metoclopramide HCl (Reglan) 10 mg Q6H PRN IV N/V Last administered on 22:48; Admin Dose 10 MG; Start 11/30/16 at 22:00 Metoprolol Tartrate 25 mg 25 mg Q12 NGT Last administered on 12/06/16 08:54; Admin Dose 25 MG; Start 12/02/16 at 21:00 Vancomycin HCl 250 ml @ 62.5 mls/hr Q8H IVPB Last administered on 12/06/16 12:33; Admin Dose 62.5 MLS/HR; Start 12/02/16 at 21:00 Meropenem/Sodium Chloride (Merrem 500mg/50 ml(Pmx)) 50 ml @ 100 mls/hr Q8 IVPB Last administered on 12/06/16 06:08; Admin Dose 100 MLS/HR; Start 12/03/16 at 15:00 Collagenase (Santyl) 1 applic DAILY TOP ; Start 12/07/16 at 09:00 Miscellaneous Information (*Rx Drug Level Order Reminder*) 1 ONCE ONCE XX ; Start 12/07/16 at 04:00; Stop 12/07/16 at 04:01 Assessment/Plan Chief Complaint/Hosp Course SUBJECTIVE: No acute events overnight. The patient is lying comfortably in bed , afebrile. MICROBIOLOGY: Blood culture on admission grew coagulase-negative staph species with repeat blood cultures being negative. Urine culture on admission grew E. coli, ESBL and Pseudomonas aeruginosa. Stool for C. diff came back negative. DIAGNOSTICS: Chest x-ray on admission revealed no pneumonia. INDWELLINGS: Trach, PEG, Aceves. ANTIMICROBIALS: 1. Vancomycin. 2. Meropenem. PHYSICAL EXAMINATION: GENERAL: This is a chronically ill-appearing, middle-aged man who is in persistent vegetative state. HEENT: Head atraumatic, normocephalic. Sclerae anicteric. Buccal mucosa dry. NECK: Supple. CHEST: Rise symmetrical. Breath sounds diminished to bases. HEART: S1, S2. ABDOMEN: Soft, bowel tones present. EXTREMITIES: Without cyanosis. ASSESSMENT: 1. Status post sepsis. 2. Polymicrobial multi-drug resistant urinary tract infection. 3. Chronic respiratory failure. 4. Dysphagia. 5. Persistent vegetative state. PLAN: Remains stable. Continue present care, complete antibiotics, vent support per pulmonary. DW staff Problems: NARESH NAVARRO NP Dec 06, 2016 14:49
--- NOTE | 2016-12-06 16:13 | CONS ---
Date/Time of Note Date/Time of Note DATE: 12/06/16 TIME: 16:13 Assessment/Plan Assessment/Plan Chief Complaint/Hosp Course Assessment: Status post sinus tachycardia - physiologic, now improved Hypertension Status post sepsis secondary to urinary tract infection - on antibiotics History of anoxic brain injury Chronic ventilator-dependent respiratory failure Recommendations: -continue metoprolol 25mg BID Problems: Consultation Date/Type/Reason Admit Date/Time Nov 30, 2016 at 04:30 Initial Consult Date 12/02/16 Type of Consultation: Cardiology 24 HR Interval Summary Free Text/Dictation No acute events. Detailed Summary Additional Comments Unable to obtain review of systems, patient is on ventilator. Exam/Review of Systems Vital Signs Vitals Vital Signs Date Time Temp Pulse Resp B/P Pulse Ox O2 Delivery O2 Flow Rate FiO2 12/06/16 15:24 98.7 81 18 151/92 100 12/06/16 15:20 35 12/03/16 23:45 Trach Collar Intake and Output 12/05/16 12/05/16 12/06/16 15:00 23:00 07:00 Intake Total 300 ml 750 ml 1750 ml Output Total 1300 ml 850 ml Balance 300 ml -550 ml 900 ml Exam Constitutional: non-verbal, No alert Psych: No nl mood/affect, No no complaints Head: atraumatic, normocephalic Eyes: nl conjunctiva, nl lids ENMT: nl external ears & nose, nl nasal mucosa & septum Neck: other (tracheostomy), No jvd Respiratory: diminished breath sounds, No crackles/rales Cardiovascular: No murmurs/extra sounds, No regular rate and rhythm ( tachycardic) Gastrointestinal: other (gastrostomy tube), soft Musculoskeletal: other (contractures) Extremities: No clubbing, No cyanosis, No edema Neurological: No nl mental status, No nl speech Results Result Diagram: 12/05/16 0535 12/05/16 0535 Medications Medications Current Medications Ondansetron HCl (Zofran Inj) 4 mg Q6H PRN IV NAUSEA AND/OR VOMITING Last administered on 11/30/16 21:12; Admin Dose 4 MG; Start 11/30/16 at 06:30 Acetaminophen (Tylenol Tab) 650 mg Q6H PRN PO PAIN LEVEL 1-3 OR FEVER Last administered on 12/05/16 00:49; Admin Dose 650 MG; Start 11/30/16 at 06:30 Acetaminophen (Tylenol Supp) 650 mg Q6H PRN [place] PAIN LEVEL 1-3 OR FEVER Last administered on 12/03/16 17:14; Admin Dose 650 MG; Start 11/30/16 at 06:30 Morphine Sulfate (morphine) 2 mg Q4H PRN IV PAIN LEVEL 7-10; Start 11/30/16 at 06:30 Enoxaparin Sodium (Lovenox) 40 mg DAILY SC Last administered on 12/06/16 08: 56; Admin Dose 40 MG; Start 11/30/16 at 09:00 Miscellaneous Information (Pending Santyl Order For Wound Care) This patient franklin... PRN PRN XX WOUND CARE; Start 11/30/16 at 10:30 Metoclopramide HCl (Reglan) 10 mg Q6H PRN IV N/V Last administered on 22:48; Admin Dose 10 MG; Start 11/30/16 at 22:00 Metoprolol Tartrate 25 mg 25 mg Q12 NGT Last administered on 12/06/16 08:54; Admin Dose 25 MG; Start 12/02/16 at 21:00 Vancomycin HCl 250 ml @ 62.5 mls/hr Q8H IVPB Last administered on 12/06/16 12:33; Admin Dose 62.5 MLS/HR; Start 12/02/16 at 21:00 Meropenem/Sodium Chloride (Merrem 500mg/50 ml(Pmx)) 50 ml @ 100 mls/hr Q8 IVPB Last administered on 12/06/16 14:51; Admin Dose 100 MLS/HR; Start 12/03/16 at 15:00 Collagenase (Santyl) 1 applic DAILY TOP ; Start 12/07/16 at 09:00 Miscellaneous Information (*Rx Drug Level Order Reminder*) 1 ONCE ONCE XX ; Start 12/07/16 at 04:00; Stop 12/07/16 at 04:01 CARMINA LI MD Dec 06, 2016 16:13
--- NOTE | 2016-12-06 16:44 | PN ---
Date/Time of Note Date/Time of Note DATE: 12/06/16 TIME: 16:43 Assessment/Plan VTE Prophylaxis VTE Prophylaxis Intervention: heparin Lines/Catheters IV Catheter Type (from Nrs): Saline Lock Central line still needed: Yes Urinary Cath still in place: Yes Reason Cath still needed: urinary retention Assessment/Plan Chief Complaint/Hosp Course 36 yo male with chronic encephalopathy and respirator failure 2/2 anoxic brain injury from overdose presenting with sepsis from CoNS bacteremia and UTI CoNS bacteremia: - Continue vancomycin per ID UTI: - Merrem per ID Chronic respiratory failure: - Mechanical ventilation for respiratory failure - Tube feeds - Ready for discharge to facility Problems: Subjective 24 Hr Interval Summary Free Text/Dictation Clinically unchanged Appears comfortable on vent Exam/Review of Systems Vital Signs Vitals Vital Signs Date Time Temp Pulse Resp B/P Pulse Ox O2 Delivery O2 Flow Rate FiO2 12/06/16 15:24 98.7 81 18 151/92 100 12/06/16 15:20 35 12/03/16 23:45 Trach Collar Intake and Output 12/05/16 12/05/16 12/06/16 15:00 23:00 07:00 Intake Total 300 ml 750 ml 1750 ml Output Total 1300 ml 850 ml Balance 300 ml -550 ml 900 ml Results Result Diagram: 12/05/16 0535 12/05/16 0535 Medications Medications Current Medications Ondansetron HCl (Zofran Inj) 4 mg Q6H PRN IV NAUSEA AND/OR VOMITING Last administered on 11/30/16 21:12; Admin Dose 4 MG; Start 11/30/16 at 06:30 Acetaminophen (Tylenol Tab) 650 mg Q6H PRN PO PAIN LEVEL 1-3 OR FEVER Last administered on 12/05/16 00:49; Admin Dose 650 MG; Start 11/30/16 at 06:30 Acetaminophen (Tylenol Supp) 650 mg Q6H PRN [place] PAIN LEVEL 1-3 OR FEVER Last administered on 12/03/16 17:14; Admin Dose 650 MG; Start 11/30/16 at 06:30 Morphine Sulfate (morphine) 2 mg Q4H PRN IV PAIN LEVEL 7-10; Start 11/30/16 at 06:30 Enoxaparin Sodium (Lovenox) 40 mg DAILY SC Last administered on 12/06/16 08: 56; Admin Dose 40 MG; Start 11/30/16 at 09:00 Miscellaneous Information (Pending Santyl Order For Wound Care) This patient franklin... PRN PRN XX WOUND CARE; Start 11/30/16 at 10:30 Metoclopramide HCl (Reglan) 10 mg Q6H PRN IV N/V Last administered on 22:48; Admin Dose 10 MG; Start 11/30/16 at 22:00 Metoprolol Tartrate 25 mg 25 mg Q12 NGT Last administered on 12/06/16 08:54; Admin Dose 25 MG; Start 12/02/16 at 21:00 Vancomycin HCl 250 ml @ 62.5 mls/hr Q8H IVPB Last administered on 12/06/16 12:33; Admin Dose 62.5 MLS/HR; Start 12/02/16 at 21:00 Meropenem/Sodium Chloride (Merrem 500mg/50 ml(Pmx)) 50 ml @ 100 mls/hr Q8 IVPB Last administered on 12/06/16 14:51; Admin Dose 100 MLS/HR; Start 12/03/16 at 15:00 Collagenase (Santyl) 1 applic DAILY TOP ; Start 12/07/16 at 09:00 Miscellaneous Information (*Rx Drug Level Order Reminder*) 1 ONCE ONCE XX ; Start 12/07/16 at 04:00; Stop 12/07/16 at 04:01 KAROLYN VALVERDE MD Dec 06, 2016 16:44
[2016-12-07] VITALS (23 sets, daily range): BP systolic 128–150; BP diastolic 81–92; PULSE 86–110; RESP 16–33
[2016-12-07] MEDS ORDERED: hydrALAzine 20 MG INJ IV PRN (01:00)
[2016-12-07] MEDS: VANCOMYCIN 1 GM in NS 250 ML IVPB SCH ×3 (04:46→20:38)
[2016-12-07] MEDS: MEROPENEM 500MG/50 ML (PMX) 50 ML IVPB SCH ×3 (05:54→22:30)
--- NOTE | 2016-12-07 09:28 | PN ---
Date/Time of Note Date/Time of Note DATE: 12/07/16 TIME: 09:26 Assessment/Plan VTE Prophylaxis VTE Prophylaxis Intervention: SCD's Lines/Catheters IV Catheter Type (from Nrs): Peripheral IV Urinary Cath still in place: Yes Reason Cath still needed: other (indicate) (monitor output) Assessment/Plan Chief Complaint/Hosp Course Assessment: Anoxic brain injury/ secondary to drug overdose Dysphagia- needing PEG for TF- not tolerating R/o ileus vs obstruction Sepsis secondary to staph bacteremia and UTI- on antibiotics Trach/vent dependent respiratory failure Plan: PEG care Continue TF D/c planning Pt to continue previous type of TF at facility Patient seen in collaboration with Subjective: Course reviewed with nursing staff Patient interviewed and examined All labs, imaging and other results reviewed Patient is stable no issues, continue TF PHYSICAL EXAMINATION: GENERAL: Well developed, well nourished, alert, non-verbal SKIN: No lesions, no stigmata chronic liver disease, no evidence of bleeding diathesis, g-tube LYMPHATIC: No palpable lymphadenopathy. HEAD: Normocephalic, atraumatic, no tenderness. EYES: Pupils equal reactive to light and accommodation, full extraocular movements, sclera clear, non-icteric, no discharge. EARS/NOSE AND THROAT: Ears normal, nose normal, oropharynx normal, oral membranes well hydrated without lesions. NECK: Supple, no masses, thyroid normal, JVP within normal limits, carotids normal without bruits. CHEST: Inspection within normal limits. CARDIOVASCULAR: Heart: Regular rate and rhythm, no murmurs, gallops or rubs. Peripheral pulses present within normal limits, no cyanosis, clubbing or edemas. No pulsatile abdominal mass RESPIRATORY: Lungs clear to auscultation, trach vent- dependent GASTROINTESTINAL AND LIVER: Abdomen: Soft, non tenderness, non-distended, no hernias, no masses, no organomegaly, no ascites, no guarding, no rebound tenderness, normoactive bowel sounds. g-tube Rectal: Deferred. GENITOURINARY: Male genitalia within normal limits, FC in place EXTREMITIES: No cyanosis, clubbing or edema. Problems: Exam/Review of Systems Vital Signs Vitals Vital Signs Date Time Temp Pulse Resp B/P Pulse Ox O2 Delivery O2 Flow Rate FiO2 12/07/16 09:03 89 19 100 35 12/07/16 07:56 98.4 139/92 12/03/16 23:45 Trach Collar Intake and Output 12/06/16 12/06/16 12/07/16 15:00 23:00 07:00 Intake Total 750 ml 1025 ml Output Total 800 ml 1200 ml Balance -50 ml -175 ml Results Result Diagram: 12/07/16 0341 12/07/16 0341 Results 24 hrs Laboratory Tests Test 12/07/16 03:41 White Blood Count 10.7 Red Blood Count 4.31 L Hemoglobin 13.3 L Hematocrit 40.0 L Mean Corpuscular Volume 92.8 Mean Corpuscular Hemoglobin 30.9 Mean Corpuscular Hemoglobin Concent 33.3 Red Cell Distribution Width 12.7 Platelet Count 377 Mean Platelet Volume 10.1 Neutrophils % 75.0 Lymphocytes % 16.0 Monocytes % 4.6 Eosinophils % 3.2 Basophils % 0.6 Nucleated Red Blood Cells % 0.0 Neutrophils # 8.0 H Lymphocytes # 1.7 Monocytes # 0.5 Eosinophils # 0.3 Basophils # 0.1 Nucleated Red Blood Cells # 0.0 Sodium Level 138 Potassium Level 4.0 Chloride Level 102 Carbon Dioxide Level 23 Anion Gap 17 H Blood Urea Nitrogen 6 L Creatinine 0.43 L Glucose Level 122 Calcium Level 9.0 Total Bilirubin 0.5 Direct Bilirubin 0.00 Indirect Bilirubin 0.5 Aspartate Amino Transf (AST/SGOT) 24 Alanine Aminotransferase (ALT/SGPT) 66 Alkaline Phosphatase 89 Total Protein 7.0 Albumin 4.1 Globulin 2.90 Albumin/Globulin Ratio 1.41 Vancomycin Level Trough 10.6 Medications Medications Current Medications Ondansetron HCl (Zofran Inj) 4 mg Q6H PRN IV NAUSEA AND/OR VOMITING Last administered on 11/30/16 21:12; Admin Dose 4 MG; Start 11/30/16 at 06:30 Acetaminophen (Tylenol Tab) 650 mg Q6H PRN PO PAIN LEVEL 1-3 OR FEVER Last administered on 12/05/16 00:49; Admin Dose 650 MG; Start 11/30/16 at 06:30 Acetaminophen (Tylenol Supp) 650 mg Q6H PRN [place] PAIN LEVEL 1-3 OR FEVER Last administered on 12/03/16 17:14; Admin Dose 650 MG; Start 11/30/16 at 06:30 Morphine Sulfate (morphine) 2 mg Q4H PRN IV PAIN LEVEL 7-10; Start 11/30/16 at 06:30 Enoxaparin Sodium (Lovenox) 40 mg DAILY SC Last administered on 12/06/16 08: 56; Admin Dose 40 MG; Start 11/30/16 at 09:00 Miscellaneous Information (Pending Santyl Order For Wound Care) This patient franklin... PRN PRN XX WOUND CARE; Start 11/30/16 at 10:30 Metoclopramide HCl (Reglan) 10 mg Q6H PRN IV N/V Last administered on 22:48; Admin Dose 10 MG; Start 11/30/16 at 22:00 Metoprolol Tartrate 25 mg 25 mg Q12 NGT Last administered on 12/06/16 21:00; Admin Dose 25 MG; Start 12/02/16 at 21:00 Vancomycin HCl 250 ml @ 62.5 mls/hr Q8H IVPB Last administered on 12/07/16 04 :46; Admin Dose 62.5 MLS/HR; Start 12/02/16 at 21:00 Meropenem/Sodium Chloride (Merrem 500mg/50 ml(Pmx)) 50 ml @ 100 mls/hr Q8 IVPB Last administered on 12/07/16 05:54; Admin Dose 100 MLS/HR; Start 12/03/16 at 15:00 Collagenase (Santyl) 1 applic DAILY TOP ; Start 12/07/16 at 09:00 Hydralazine HCl (Apresoline) 10 mg Q6H PRN IV SBP > 180; Start 12/07/16 at 01: 00 RAY LEMUS Dec 07, 2016 09:28
[2016-12-07] MEDS: METOPROLOL 25 MG TAB NGT SCH ×2 (09:32→20:39)
[2016-12-07] MEDS: ENOXAPARIN 40 MG/0.4 ML SYG SC SCH (09:33)
[2016-12-07] MEDS: COLLAGENASE 30 GM TUBE TOP SCH (09:34)
--- NOTE | 2016-12-07 11:46 | CONS ---
Date/Time of Note Date/Time of Note DATE: 12/07/16 TIME: 11:44 Assessment/Plan Assessment/Plan Additional Assessment/Plan Ventilator setting; AC of 16, tidal volume 500, PEEP of 5, 35% FiO2. Assessment and recommendations; 1. Patient admitted for UTI with sepsis currently on appropriate antibiotic regimen. 2. History of chronic respiratory failure patient remains in persistent vegetative state. Continue current supportive care. Consultation Date/Type/Reason Admit Date/Time Nov 30, 2016 at 04:30 Initial Consult Date 12/02/16 Type of Consultation: Pulmonary 24 HR Interval Summary Free Text/Dictation Patient's condition remains stable. Has remained hemodynamically stable. General exam; young male, on ventilator via tracheostomy, unresponsive, currently in no distress. Exam/Review of Systems Vital Signs Vitals Vital Signs Date Time Temp Pulse Resp B/P Pulse Ox O2 Delivery O2 Flow Rate FiO2 12/07/16 11:10 86 33 100 35 12/07/16 07:56 98.4 139/92 12/03/16 23:45 Trach Collar Intake and Output 12/06/16 12/06/16 12/07/16 15:00 23:00 07:00 Intake Total 750 ml 1025 ml Output Total 800 ml 1200 ml Balance -50 ml -175 ml Exam HEENT exam; supple neck, no JVD. No lymphadenopathy. Midline trachea. No thyromegaly. Tracheostomy in place. Patient has fair dentition. Multiple well -healed craniotomy scars are present. Chest exam; clear to auscultation. S1-S2 audible, no murmurs. Regular rhythm. Abdomen exam; soft, no organomegaly. G-tube in place. Bowel sounds audible. Extremity exam; no peripheral edema. [employer] exam; patient remains completely unresponsive. Results Result Diagram: 12/07/16 03412/07/16 0341 Results 24 hrs Laboratory Tests Test 12/07/16 03:41 White Blood Count 10.7 Red Blood Count 4.31 L Hemoglobin 13.3 L Hematocrit 40.0 L Mean Corpuscular Volume 92.8 Mean Corpuscular Hemoglobin 30.9 Mean Corpuscular Hemoglobin Concent 33.3 Red Cell Distribution Width 12.7 Platelet Count 377 Mean Platelet Volume 10.1 Neutrophils % 75.0 Lymphocytes % 16.0 Monocytes % 4.6 Eosinophils % 3.2 Basophils % 0.6 Nucleated Red Blood Cells % 0.0 Neutrophils # 8.0 H Lymphocytes # 1.7 Monocytes # 0.5 Eosinophils # 0.3 Basophils # 0.1 Nucleated Red Blood Cells # 0.0 Sodium Level 138 Potassium Level 4.0 Chloride Level 102 Carbon Dioxide Level 23 Anion Gap 17 H Blood Urea Nitrogen 6 L Creatinine 0.43 L Glucose Level 122 Calcium Level 9.0 Total Bilirubin 0.5 Direct Bilirubin 0.00 Indirect Bilirubin 0.5 Aspartate Amino Transf (AST/SGOT) 24 Alanine Aminotransferase (ALT/SGPT) 66 Alkaline Phosphatase 89 Total Protein 7.0 Albumin 4.1 Globulin 2.90 Albumin/Globulin Ratio 1.41 Vancomycin Level Trough 10.6 Medications Medications Current Medications Ondansetron HCl (Zofran Inj) 4 mg Q6H PRN IV NAUSEA AND/OR VOMITING Last administered on 11/30/16 21:12; Admin Dose 4 MG; Start 11/30/16 at 06:30 Acetaminophen (Tylenol Tab) 650 mg Q6H PRN PO PAIN LEVEL 1-3 OR FEVER Last administered on 12/05/16 00:49; Admin Dose 650 MG; Start 11/30/16 at 06:30 Acetaminophen (Tylenol Supp) 650 mg Q6H PRN [place] PAIN LEVEL 1-3 OR FEVER Last administered on 12/03/16 17:14; Admin Dose 650 MG; Start 11/30/16 at 06:30 Morphine Sulfate (morphine) 2 mg Q4H PRN IV PAIN LEVEL 7-10; Start 11/30/16 at 06:30 Enoxaparin Sodium (Lovenox) 40 mg DAILY SC Last administered on 12/07/16 09:33 ; Admin Dose 40 MG; Start 11/30/16 at 09:00 Miscellaneous Information (Pending Santyl Order For Wound Care) This patient franklin... PRN PRN XX WOUND CARE; Start 11/30/16 at 10:30 Metoclopramide HCl (Reglan) 10 mg Q6H PRN IV N/V Last administered on 22:48; Admin Dose 10 MG; Start 11/30/16 at 22:00 Metoprolol Tartrate 25 mg 25 mg Q12 NGT Last administered on 12/07/16 09:32; Admin Dose 25 MG; Start 12/02/16 at 21:00 Vancomycin HCl 250 ml @ 62.5 mls/hr Q8H IVPB Last administered on 12/07/16 04 :46; Admin Dose 62.5 MLS/HR; Start 12/02/16 at 21:00 Meropenem/Sodium Chloride (Merrem 500mg/50 ml(Pmx)) 50 ml @ 100 mls/hr Q8 IVPB Last administered on 12/07/16 05:54; Admin Dose 100 MLS/HR; Start 12/03/16 at 15:00 Collagenase (Santyl) 1 applic DAILY TOP Last administered on 12/07/16 09:34; Admin Dose 1 APPLIC; Start 12/07/16 at 09:00 Hydralazine HCl (Apresoline) 10 mg Q6H PRN IV SBP > 180; Start 12/07/16 at 01: 00 DERICK ROBLEDO Dec 07, 2016 11:46
--- NOTE | 2016-12-07 13:19 | CONS ---
Date/Time of Note Date/Time of Note DATE: 12/07/16 TIME: 13:18 Consult Date/Type/Reason Admit Date/Time Nov 30, 2016 at 04:30 Initial Consult Date 12/02/16 Type of Consultation: ID Objective Vital Signs Date Time Temp Pulse Resp B/P Pulse Ox O2 Delivery O2 Flow Rate FiO2 12/07/16 12:54 86 24 100 35 12/07/16 07:56 98.4 139/92 12/03/16 23:45 Trach Collar Intake and Output 12/06/16 12/06/16 12/07/16 15:00 23:00 07:00 Intake Total 750 ml 1025 ml Output Total 800 ml 1200 ml Balance -50 ml -175 ml Results/Medications Result Diagram: 12/07/16 0341 12/07/16 0341 Results 24 hrs Laboratory Tests Test 12/07/16 03:41 White Blood Count 10.7 Red Blood Count 4.31 L Hemoglobin 13.3 L Hematocrit 40.0 L Mean Corpuscular Volume 92.8 Mean Corpuscular Hemoglobin 30.9 Mean Corpuscular Hemoglobin Concent 33.3 Red Cell Distribution Width 12.7 Platelet Count 377 Mean Platelet Volume 10.1 Neutrophils % 75.0 Lymphocytes % 16.0 Monocytes % 4.6 Eosinophils % 3.2 Basophils % 0.6 Nucleated Red Blood Cells % 0.0 Neutrophils # 8.0 H Lymphocytes # 1.7 Monocytes # 0.5 Eosinophils # 0.3 Basophils # 0.1 Nucleated Red Blood Cells # 0.0 Sodium Level 138 Potassium Level 4.0 Chloride Level 102 Carbon Dioxide Level 23 Anion Gap 17 H Blood Urea Nitrogen 6 L Creatinine 0.43 L Glucose Level 122 Calcium Level 9.0 Total Bilirubin 0.5 Direct Bilirubin 0.00 Indirect Bilirubin 0.5 Aspartate Amino Transf (AST/SGOT) 24 Alanine Aminotransferase (ALT/SGPT) 66 Alkaline Phosphatase 89 Total Protein 7.0 Albumin 4.1 Globulin 2.90 Albumin/Globulin Ratio 1.41 Vancomycin Level Trough 10.6 Medications Current Medications Ondansetron HCl (Zofran Inj) 4 mg Q6H PRN IV NAUSEA AND/OR VOMITING Last administered on 11/30/16t 21:12; Admin Dose 4 MG; Start 11/30/16 at 06:30 Acetaminophen (Tylenol Tab) 650 mg Q6H PRN PO PAIN LEVEL 1-3 OR FEVER Last administered on 12/05/16 00:49; Admin Dose 650 MG; Start 11/30/16 at 06:30 Acetaminophen (Tylenol Supp) 650 mg Q6H PRN [place] PAIN LEVEL 1-3 OR FEVER Last administered on 12/03/16 17:14; Admin Dose 650 MG; Start 11/30/16 at 06:30 Morphine Sulfate (morphine) 2 mg Q4H PRN IV PAIN LEVEL 7-10; Start 11/30/16 at 06:30 Enoxaparin Sodium (Lovenox) 40 mg DAILY SC Last administered on 12/07/16 09:33 ; Admin Dose 40 MG; Start 11/30/16 at 09:00 Miscellaneous Information (Pending Santyl Order For Wound Care) This patient franklin... PRN PRN XX WOUND CARE; Start 11/30/16 at 10:30 Metoclopramide HCl (Reglan) 10 mg Q6H PRN IV N/V Last administered on 22:48; Admin Dose 10 MG; Start 11/30/16 at 22:00 Metoprolol Tartrate 25 mg 25 mg Q12 NGT Last administered on 12/07/16 09:32; Admin Dose 25 MG; Start 12/02/16 at 21:00 Vancomycin HCl 250 ml @ 62.5 mls/hr Q8H IVPB Last administered on 12/07/16 04 :46; Admin Dose 62.5 MLS/HR; Start 12/02/16 at 21:00 Meropenem/Sodium Chloride (Merrem 500mg/50 ml(Pmx)) 50 ml @ 100 mls/hr Q8 IVPB Last administered on 12/07/16 05:54; Admin Dose 100 MLS/HR; Start 12/03/16 at 15:00 Collagenase (Santyl) 1 applic DAILY TOP Last administered on 12/07/16 09:34; Admin Dose 1 APPLIC; Start 12/07/16 at 09:00 Hydralazine HCl (Apresoline) 10 mg Q6H PRN IV SBP > 180; Start 12/07/16 at 01: 00 Assessment/Plan Chief Complaint/Hosp Course SUBJECTIVE: No acute events overnight. The patient is lying comfortably in bed , afebrile. MICROBIOLOGY: Blood culture on admission grew coagulase-negative staph species with repeat blood cultures being negative. Urine culture on admission grew E. coli, ESBL and Pseudomonas aeruginosa. Stool for C. diff came back negative. DIAGNOSTICS: Chest x-ray on admission revealed no pneumonia. INDWELLINGS: Trach, PEG, Aceves. ANTIMICROBIALS: 1. Vancomycin. 2. Meropenem. PHYSICAL EXAMINATION: GENERAL: This is a chronically ill-appearing, middle-aged man who is in persistent vegetative state. HEENT: Head atraumatic, normocephalic. Sclerae anicteric. Buccal mucosa dry. NECK: Supple. CHEST: Rise symmetrical. Breath sounds diminished to bases. HEART: S1, S2. ABDOMEN: Soft, bowel tones present. EXTREMITIES: Without cyanosis. ASSESSMENT: 1. Status post sepsis. 2. Polymicrobial multi-drug resistant urinary tract infection. 3. Chronic respiratory failure. 4. Dysphagia. 5. Persistent vegetative state. PLAN: Remains stable. Continue present care, complete antibiotics for couple more days, vent support per pulmonary. [facility] staff Problems: NARESH NAVARRO NP Dec 07, 2016 13:19
--- NOTE | 2016-12-07 16:07 | PN ---
Date/Time of Note Date/Time of Note DATE: 12/07/16 TIME: 16:06 Assessment/Plan VTE Prophylaxis VTE Prophylaxis Intervention: LMWH Lines/Catheters IV Catheter Type ([facility] Peripheral IV Central line still needed: Yes Urinary Cath still in place: Yes Reason Cath still needed: urinary retention Assessment/Plan Chief Complaint/Hosp Course 36 yo male with chronic encephalopathy and respirator failure 2/2 anoxic brain injury from overdose presenting with sepsis from CoNS bacteremia and UTI CoNS bacteremia: - Continue vancomycin per ID UTI: - Merrem per ID Chronic respiratory failure, anoxic brain injury 2/2 opverdose - Mechanical ventilation for respiratory failure - Tube feeds - Ready for discharge to facility Problems: Subjective 24 Hr Interval Summary Free Text/Dictation No change to clinical status Exam/Review of Systems Vital Signs Vitals Vital Signs Date Time Temp Pulse Resp B/P Pulse Ox O2 Delivery O2 Flow Rate FiO2 12/07/16 15:10 92 17 100 35 12/07/16 15:06 98.6 128/84 12/03/16 23:45 Trach Collar Intake and Output 12/06/16 12/06/16 12/07/16 14:59 22:59 06:59 Intake Total 750 ml 1025 ml Output Total 800 ml 1200 ml Balance -50 ml -175 ml Exam Constitutional: alert, oriented, well developed Psych: nl mood/affect, no complaints Head: atraumatic, normocephalic Eyes: EOMI, PERRL, nl conjunctiva, nl lids, nl sclera ENMT: nl external ears & nose, nl lips & teeth, nl nasal mucosa & septum Neck: non-tender, supple Respiratory: clear to auscultation, normal air movement Cardiovascular: nl pulses, regular rate and rhythm Gastrointestinal: nl liver, spleen, non-tender, soft Musculoskeletal: nl extremities to inspection, nl gait and stance Extremities: normal pulses Neurological: 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 II-XII 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, nl mental status, nl speech, nl strength Skin: nl turgor, No rash or lesions Lymph: nl lymph nodes Results Result Diagram: 12/07/16 03412/07/16 034 Results 24 hrs Laboratory Tests Test 12/07/16 03:41 White Blood Count 10.7 Red Blood Count 4.31 L Hemoglobin 13.3 L Hematocrit 40.0 L Mean Corpuscular Volume 92.8 Mean Corpuscular Hemoglobin 30.9 Mean Corpuscular Hemoglobin Concent 33.3 Red Cell Distribution Width 12.7 Platelet Count 377 Mean Platelet Volume 10.1 Neutrophils % 75.0 Lymphocytes % 16.0 Monocytes % 4.6 Eosinophils % 3.2 Basophils % 0.6 Nucleated Red Blood Cells % 0.0 Neutrophils # 8.0 H Lymphocytes # 1.7 Monocytes # 0.5 Eosinophils # 0.3 Basophils # 0.1 Nucleated Red Blood Cells # 0.0 Sodium Level 138 Potassium Level 4.0 Chloride Level 102 Carbon Dioxide Level 23 Anion Gap 17 H Blood Urea Nitrogen 6 L Creatinine 0.43 L Glucose Level 122 Calcium Level 9.0 Total Bilirubin 0.5 Direct Bilirubin 0.00 Indirect Bilirubin 0.5 Aspartate Amino Transf (AST/SGOT) 24 Alanine Aminotransferase (ALT/SGPT) 66 Alkaline Phosphatase 89 Total Protein 7.0 Albumin 4.1 Globulin 2.90 Albumin/Globulin Ratio 1.41 Vancomycin Level Trough 10.6 Medications Medications Current Medications Ondansetron HCl (Zofran Inj) 4 mg Q6H PRN IV NAUSEA AND/OR VOMITING Last administered on 11/30/16 21:12; Admin Dose 4 MG; Start 11/30/16 at 06:30 Acetaminophen (Tylenol Tab) 650 mg Q6H PRN PO PAIN LEVEL 1-3 OR FEVER Last administered on 12/05/16 00:49; Admin Dose 650 MG; Start 11/30/16 at 06:30 Acetaminophen (Tylenol Supp) 650 mg Q6H PRN [place] PAIN LEVEL 1-3 OR FEVER Last administered on 12/03/16 17:14; Admin Dose 650 MG; Start 11/30/16 at 06:30 Morphine Sulfate (morphine) 2 mg Q4H PRN IV PAIN LEVEL 7-10; Start 11/30/16 at 06:30 Enoxaparin Sodium (Lovenox) 40 mg DAILY SC Last administered on 12/07/16 09:33 ; Admin Dose 40 MG; Start 11/30/16 at 09:00 Miscellaneous Information (Pending Santyl Order For Wound Care) This patient franklin... PRN PRN XX WOUND CARE; Start 11/30/16 at 10:30 Metoclopramide HCl (Reglan) 10 mg Q6H PRN IV N/V Last administered on 22:48; Admin Dose 10 MG; Start 11/30/16 at 22:00 Metoprolol Tartrate 25 mg 25 mg Q12 NGT Last administered on 12/07/16 09:32; Admin Dose 25 MG; Start 12/02/16 at 21:00 Vancomycin HCl 250 ml @ 62.5 mls/hr Q8H IVPB Last administered on 12/07/16 13 :00; Admin Dose 62.5 MLS/HR; Start 12/02/16 at 21:00 Meropenem/Sodium Chloride (Merrem 500mg/50 ml(Pmx)) 50 ml @ 100 mls/hr Q8 IVPB Last administered on 12/07/16 14:20; Admin Dose 100 MLS/HR; Start 12/03/16 at 15:00 Collagenase (Santyl) 1 applic DAILY TOP Last administered on 12/07/16 09:34; Admin Dose 1 APPLIC; Start 12/07/16 at 09:00 Hydralazine HCl (Apresoline) 10 mg Q6H PRN IV SBP > 180; Start 12/07/16 at 01: 00 KAROLYN VALVERDE MD Dec 07, 2016 16:07
--- NOTE | 2016-12-07 19:55 | CONS ---
Date/Time of Note Date/Time of Note DATE: 12/07/16 TIME: 19:54 Assessment/Plan Assessment/Plan Chief Complaint/Hosp Course Assessment: Status post sinus tachycardia - physiologic, now improved Status post sepsis - secondary to urinary tract infection, on antibiotics Hypertension History of anoxic brain injury Chronic ventilator-dependent respiratory failure Recommendations: -continue metoprolol 25mg BID Problems: Consultation Date/Type/Reason Admit Date/Time Nov 30, 2016 at 04:30 Initial Consult Date 12/02/16 Type of Consultation: Cardiology 24 HR Interval Summary Free Text/Dictation No acute events. Detailed Summary Additional Comments Unable to obtain review of systems due to patient's mental status. Exam/Review of Systems Vital Signs Vitals Vital Signs Date Time Temp Pulse Resp B/P Pulse Ox O2 Delivery O2 Flow Rate FiO2 12/07/16 19:39 98.5 100 18 133/89 98 12/07/16 17:31 35 12/03/16 23:45 Trach Collar Intake and Output 12/06/16 12/06/16 12/07/16 15:00 23:00 07:00 Intake Total 750 ml 1025 ml Output Total 800 ml 1200 ml Balance -50 ml -175 ml Exam Constitutional: non-verbal, No alert Psych: No nl mood/affect, No no complaints Head: atraumatic, normocephalic Eyes: nl conjunctiva, nl lids ENMT: nl external ears & nose, nl nasal mucosa & septum Neck: other (tracheostomy), No jvd Respiratory: diminished breath sounds, No crackles/rales Cardiovascular: No murmurs/extra sounds, No regular rate and rhythm ( tachycardic) Gastrointestinal: other (gastrostomy tube), soft Musculoskeletal: other (contractures) Extremities: No clubbing, No cyanosis, No edema Neurological: No nl mental status, No nl speech Results Result Diagram: 12/07/16 0341 12/07/16 0341 Results 24 hrs Laboratory Tests Test 12/07/16 03:41 White Blood Count 10.7 Red Blood Count 4.31 L Hemoglobin 13.3 L Hematocrit 40.0 L Mean Corpuscular Volume 92.8 Mean Corpuscular Hemoglobin 30.9 Mean Corpuscular Hemoglobin Concent 33.3 Red Cell Distribution Width 12.7 Platelet Count 377 Mean Platelet Volume 10.1 Neutrophils % 75.0 Lymphocytes % 16.0 Monocytes % 4.6 Eosinophils % 3.2 Basophils % 0.6 Nucleated Red Blood Cells % 0.0 Neutrophils # 8.0 H Lymphocytes # 1.7 Monocytes # 0.5 Eosinophils # 0.3 Basophils # 0.1 Nucleated Red Blood Cells # 0.0 Sodium Level 138 Potassium Level 4.0 Chloride Level 102 Carbon Dioxide Level 23 Anion Gap 17 H Blood Urea Nitrogen 6 L Creatinine 0.43 L Glucose Level 122 Calcium Level 9.0 Total Bilirubin 0.5 Direct Bilirubin 0.00 Indirect Bilirubin 0.5 Aspartate Amino Transf (AST/SGOT) 24 Alanine Aminotransferase (ALT/SGPT) 66 Alkaline Phosphatase 89 Total Protein 7.0 Albumin 4.1 Globulin 2.90 Albumin/Globulin Ratio 1.41 Vancomycin Level Trough 10.6 Medications Medications Current Medications Ondansetron HCl (Zofran Inj) 4 mg Q6H PRN IV NAUSEA AND/OR VOMITING Last administered on 11/30/16 21:12; Admin Dose 4 MG; Start 11/30/16 at 06:30 Acetaminophen (Tylenol Tab) 650 mg Q6H PRN PO PAIN LEVEL 1-3 OR FEVER Last administered on 12/05/16 00:49; Admin Dose 650 MG; Start 11/30/16 at 06:30 Acetaminophen (Tylenol Supp) 650 mg Q6H PRN [place] PAIN LEVEL 1-3 OR FEVER Last administered on 12/03/16 17:14; Admin Dose 650 MG; Start 11/30/16 at 06:30 Morphine Sulfate (morphine) 2 mg Q4H PRN IV PAIN LEVEL 7-10; Start 11/30/16 at 06:30 Enoxaparin Sodium (Lovenox) 40 mg DAILY SC Last administered on 12/07/16 09:33 ; Admin Dose 40 MG; Start 11/30/16 at 09:00 Miscellaneous Information (Pending Santyl Order For Wound Care) This patient franklin... PRN PRN XX WOUND CARE; Start 11/30/16 at 10:30 Metoclopramide HCl (Reglan) 10 mg Q6H PRN IV N/V Last administered on 22:48; Admin Dose 10 MG; Start 11/30/16 at 22:00 Metoprolol Tartrate 25 mg 25 mg Q12 NGT Last administered on 12/07/16 09:32; Admin Dose 25 MG; Start 12/02/16 at 21:00 Vancomycin HCl 250 ml @ 62.5 mls/hr Q8H IVPB Last administered on 12/07/16 13 :00; Admin Dose 62.5 MLS/HR; Start 12/02/16 at 21:00 Meropenem/Sodium Chloride (Merrem 500mg/50 ml(Pmx)) 50 ml @ 100 mls/hr Q8 IVPB Last administered on 12/07/16 14:20; Admin Dose 100 MLS/HR; Start 12/03/16 at 15:00 Collagenase (Santyl) 1 applic DAILY TOP Last administered on 12/07/16 09:34; Admin Dose 1 APPLIC; Start 12/07/16 at 09:00 Hydralazine HCl (Apresoline) 10 mg Q6H PRN IV SBP > 180; Start 12/07/16 at 01: 00 CARMINA LI MD Dec 07, 2016 19:55
[2016-12-08] VITALS (18 sets, daily range): BP systolic 131–147; BP diastolic 80–90; PULSE 78–104; RESP 18–21
[2016-12-08] MEDS: MEROPENEM 500MG/50 ML (PMX) 50 ML IVPB SCH ×2 (05:06→13:47)
[2016-12-08] MEDS: VANCOMYCIN 1 GM in NS 250 ML IVPB SCH ×2 (05:06→12:37)
[2016-12-08] MEDS: METOPROLOL 25 MG TAB NGT SCH (08:32)
[2016-12-08] MEDS: ENOXAPARIN 40 MG/0.4 ML SYG SC SCH (08:40)
[2016-12-08] MEDS: COLLAGENASE 30 GM TUBE TOP SCH (08:40)
--- NOTE | 2016-12-08 12:00 | CONS ---
Date/Time of Note Date/Time of Note DATE: 12/08/16 TIME: 11:58 Assessment/Plan Assessment/Plan Additional Assessment/Plan Ventilator setting; AC of 16, tidal volume 500, PEEP of 5, 35% FiO2. Assessment and recommendations; 1. Patient admitted with sepsis from E. coli with gram-negative bacteremia and UTI. Currently on appropriate antibiotic regimen with significant clinical improvement. 2. Chronic respiratory failure due to severe anoxic brain injury. Continue current supportive care. Consider discharge to residential. Consultation Date/Type/Reason Admit Date/Time Nov 30, 2016 at 04:30 Initial Consult Date 12/02/16 Type of Consultation: Pulmonary 24 HR Interval Summary Free Text/Dictation Patient's condition has remained stable. General exam; young male, on ventilator via tracheostomy, unresponsive, currently in no distress. Exam/Review of Systems Vital Signs Vitals Vital Signs Date Time Temp Pulse Resp B/P Pulse Ox O2 Delivery O2 Flow Rate FiO2 12/08/16 11:05 99.5 84 18 141/87 97 12/08/16 05:31 35 Intake and Output 12/07/16 12/07/16 12/08/16 15:00 23:00 07:00 Intake Total 1100 ml 1112.5 ml Output Total 600 ml 600 ml Balance 500 ml 512.5 ml Exam HEENT exam; supple neck, no JVD. No lymphadenopathy. Midline trachea. No thyromegaly. Pharynx is clear. Tracheostomy in place. Multiple well-healed craniotomy scars are present. Chest exam; clear to auscultation. S1-S2 audible, no murmurs. Regular rhythm. Abdomen exam; soft, nondistended. G-tube in place. Bowel sounds audible. Extremity exam; no peripheral edema. 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 Remains in persistent vegetative state. Results Result Diagram: 12/07/1634012/07/16 034 Medications Medications Current Medications Ondansetron HCl (Zofran Inj) 4 mg Q6H PRN IV NAUSEA AND/OR VOMITING Last administered on 11/30/16 21:12; Admin Dose 4 MG; Start 11/30/16 at 06:30 Acetaminophen (Tylenol Tab) 650 mg Q6H PRN PO PAIN LEVEL 1-3 OR FEVER Last administered on 12/05/16 00:49; Admin Dose 650 MG; Start 11/30/16 at 06:30 Acetaminophen (Tylenol Supp) 650 mg Q6H PRN [place] PAIN LEVEL 1-3 OR FEVER Last administered on 12/03/16 17:14; Admin Dose 650 MG; Start 11/30/16 at 06:30 Morphine Sulfate (morphine) 2 mg Q4H PRN IV PAIN LEVEL 7-10; Start 11/30/16 at 06:30 Enoxaparin Sodium (Lovenox) 40 mg DAILY SC Last administered on 12/08/16 08:40 ; Admin Dose 40 MG; Start 11/30/16 at 09:00 Miscellaneous Information (Pending Santyl Order For Wound Care) This patient franklin... PRN PRN XX WOUND CARE; Start 11/30/16 at 10:30 Metoclopramide HCl (Reglan) 10 mg Q6H PRN IV N/V Last administered on 22:48; Admin Dose 10 MG; Start 11/30/16 at 22:00 Metoprolol Tartrate 25 mg 25 mg Q12 NGT Last administered on 12/08/16 08:32; Admin Dose 25 MG; Start 12/02/16 at 21:00 Vancomycin HCl 250 ml @ 62.5 mls/hr Q8H IVPB Last administered on 12/08/16 05 :06; Admin Dose 62.5 MLS/HR; Start 12/02/16 at 21:00 Meropenem/Sodium Chloride (Merrem 500mg/50 ml(Pmx)) 50 ml @ 100 mls/hr Q8 IVPB Last administered on 12/08/16 05:06; Admin Dose 100 MLS/HR; Start 12/03/16 at 15:00 Collagenase (Santyl) 1 applic DAILY TOP Last administered on 12/08/16 08:40; Admin Dose 1 APPLIC; Start 12/07/16 at 09:00 Hydralazine HCl (Apresoline) 10 mg Q6H PRN IV SBP > 180; Start 12/07/16 at 01: 00 DERICK ROBLEDO Dec 08, 2016 12:00
--- NOTE | 2016-12-08 12:00 | CONS ---
Date/Time of Note Date/Time of Note DATE: 12/08/16 TIME: 11:58 Assessment/Plan Assessment/Plan Additional Assessment/Plan Ventilator setting; AC of 16, tidal volume 500, PEEP of 5, 35% FiO2. Assessment and recommendations; 1. Patient admitted with sepsis from E. coli with gram-negative bacteremia and UTI. Currently on appropriate antibiotic regimen with significant clinical improvement. 2. Chronic respiratory failure due to severe anoxic brain injury. Continue current supportive care. Consider discharge to retirement. Consultation Date/Type/Reason Admit Date/Time Nov 30, 2016 at 04:30 Initial Consult Date 12/02/16 Type of Consultation: Pulmonary 24 HR Interval Summary Free Text/Dictation Patient's condition has remained stable. General exam; young male, on ventilator via tracheostomy, unresponsive, currently in no distress. Exam/Review of Systems Vital Signs Vitals Vital Signs Date Time Temp Pulse Resp B/P Pulse Ox O2 Delivery O2 Flow Rate FiO2 12/08/16 11:05 99.5 84 18 141/87 97 12/08/16 05:31 35 Intake and Output 12/07/16 12/07/16 12/08/16 15:00 23:00 07:00 Intake Total 1100 ml 1112.5 ml Output Total 600 ml 600 ml Balance 500 ml 512.5 ml Exam HEENT exam; supple neck, no JVD. No lymphadenopathy. Midline trachea. No thyromegaly. Pharynx is clear. Tracheostomy in place. Multiple well-healed craniotomy scars are present. Chest exam; clear to auscultation. S1-S2 audible, no murmurs. Regular rhythm. Abdomen exam; soft, nondistended. G-tube in place. Bowel sounds audible. Extremity exam; no peripheral edema. 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 Remains in persistent vegetative state. Results Result Diagram: 12/07/1634012/07/16 034 Medications Medications Current Medications Ondansetron HCl (Zofran Inj) 4 mg Q6H PRN IV NAUSEA AND/OR VOMITING Last administered on 11/30/16 21:12; Admin Dose 4 MG; Start 11/30/16 at 06:30 Acetaminophen (Tylenol Tab) 650 mg Q6H PRN PO PAIN LEVEL 1-3 OR FEVER Last administered on 12/05/16 00:49; Admin Dose 650 MG; Start 11/30/16 at 06:30 Acetaminophen (Tylenol Supp) 650 mg Q6H PRN [place] PAIN LEVEL 1-3 OR FEVER Last administered on 12/03/16 17:14; Admin Dose 650 MG; Start 11/30/16 at 06:30 Morphine Sulfate (morphine) 2 mg Q4H PRN IV PAIN LEVEL 7-10; Start 11/30/16 at 06:30 Enoxaparin Sodium (Lovenox) 40 mg DAILY SC Last administered on 12/08/16 08:40 ; Admin Dose 40 MG; Start 11/30/16 at 09:00 Miscellaneous Information (Pending Santyl Order For Wound Care) This patient franklin... PRN PRN XX WOUND CARE; Start 11/30/16 at 10:30 Metoclopramide HCl (Reglan) 10 mg Q6H PRN IV N/V Last administered on 22:48; Admin Dose 10 MG; Start 11/30/16 at 22:00 Metoprolol Tartrate 25 mg 25 mg Q12 NGT Last administered on 12/08/16 08:32; Admin Dose 25 MG; Start 12/02/16 at 21:00 Vancomycin HCl 250 ml @ 62.5 mls/hr Q8H IVPB Last administered on 12/08/16 05 :06; Admin Dose 62.5 MLS/HR; Start 12/02/16 at 21:00 Meropenem/Sodium Chloride (Merrem 500mg/50 ml(Pmx)) 50 ml @ 100 mls/hr Q8 IVPB Last administered on 12/08/16 05:06; Admin Dose 100 MLS/HR; Start 12/03/16 at 15:00 Collagenase (Santyl) 1 applic DAILY TOP Last administered on 12/08/16 08:40; Admin Dose 1 APPLIC; Start 12/07/16 at 09:00 Hydralazine HCl (Apresoline) 10 mg Q6H PRN IV SBP > 180; Start 12/07/16 at 01: 00 DERICK ROBLEDO Dec 08, 2016 12:00
--- NOTE | 2016-12-08 12:00 | CONS ---
Date/Time of Note Date/Time of Note DATE: 12/08/16 TIME: 11:58 Assessment/Plan Assessment/Plan Additional Assessment/Plan Ventilator setting; AC of 16, tidal volume 500, PEEP of 5, 35% FiO2. Assessment and recommendations; 1. Patient admitted with sepsis from E. coli with gram-negative bacteremia and UTI. Currently on appropriate antibiotic regimen with significant clinical improvement. 2. Chronic respiratory failure due to severe anoxic brain injury. Continue current supportive care. Consider discharge to snf. Consultation Date/Type/Reason Admit Date/Time Nov 30, 2016 at 04:30 Initial Consult Date 12/02/16 Type of Consultation: Pulmonary 24 HR Interval Summary Free Text/Dictation Patient's condition has remained stable. General exam; young male, on ventilator via tracheostomy, unresponsive, currently in no distress. Exam/Review of Systems Vital Signs Vitals Vital Signs Date Time Temp Pulse Resp B/P Pulse Ox O2 Delivery O2 Flow Rate FiO2 12/08/16 11:05 99.5 84 18 141/87 97 12/08/16 05:31 35 Intake and Output 12/07/16 12/07/16 12/08/16 15:00 23:00 07:00 Intake Total 1100 ml 1112.5 ml Output Total 600 ml 600 ml Balance 500 ml 512.5 ml Exam HEENT exam; supple neck, no JVD. No lymphadenopathy. Midline trachea. No thyromegaly. Pharynx is clear. Tracheostomy in place. Multiple well-healed craniotomy scars are present. Chest exam; clear to auscultation. S1-S2 audible, no murmurs. Regular rhythm. Abdomen exam; soft, nondistended. G-tube in place. Bowel sounds audible. Extremity exam; no peripheral edema. 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 Remains in persistent vegetative state. Results Result Diagram: 12/07/1634012/07/16 034 Medications Medications Current Medications Ondansetron HCl (Zofran Inj) 4 mg Q6H PRN IV NAUSEA AND/OR VOMITING Last administered on 11/30/16 21:12; Admin Dose 4 MG; Start 11/30/16 at 06:30 Acetaminophen (Tylenol Tab) 650 mg Q6H PRN PO PAIN LEVEL 1-3 OR FEVER Last administered on 12/05/16 00:49; Admin Dose 650 MG; Start 11/30/16 at 06:30 Acetaminophen (Tylenol Supp) 650 mg Q6H PRN [place] PAIN LEVEL 1-3 OR FEVER Last administered on 12/03/16 17:14; Admin Dose 650 MG; Start 11/30/16 at 06:30 Morphine Sulfate (morphine) 2 mg Q4H PRN IV PAIN LEVEL 7-10; Start 11/30/16 at 06:30 Enoxaparin Sodium (Lovenox) 40 mg DAILY SC Last administered on 12/08/16 08:40 ; Admin Dose 40 MG; Start 11/30/16 at 09:00 Miscellaneous Information (Pending Santyl Order For Wound Care) This patient franklin... PRN PRN XX WOUND CARE; Start 11/30/16 at 10:30 Metoclopramide HCl (Reglan) 10 mg Q6H PRN IV N/V Last administered on 22:48; Admin Dose 10 MG; Start 11/30/16 at 22:00 Metoprolol Tartrate 25 mg 25 mg Q12 NGT Last administered on 12/08/16 08:32; Admin Dose 25 MG; Start 12/02/16 at 21:00 Vancomycin HCl 250 ml @ 62.5 mls/hr Q8H IVPB Last administered on 12/08/16 05 :06; Admin Dose 62.5 MLS/HR; Start 12/02/16 at 21:00 Meropenem/Sodium Chloride (Merrem 500mg/50 ml(Pmx)) 50 ml @ 100 mls/hr Q8 IVPB Last administered on 12/08/16 05:06; Admin Dose 100 MLS/HR; Start 12/03/16 at 15:00 Collagenase (Santyl) 1 applic DAILY TOP Last administered on 12/08/16 08:40; Admin Dose 1 APPLIC; Start 12/07/16 at 09:00 Hydralazine HCl (Apresoline) 10 mg Q6H PRN IV SBP > 180; Start 12/07/16 at 01: 00 DERICK ROBLEDO Dec 08, 2016 12:00
--- NOTE | 2016-12-08 13:17 | PDOCDIS ---
Discharge Instructions DIAGNOSIS Discharge Diagnosis Urinary tract infection CONDITION Patient Condition: Fair HOME CARE INSTRUCTIONS: Diet Instructions: RegularSpecial Diet: KAROLYN Burciaga MD Dec 08, 2016 13:17
--- NOTE | 2016-12-08 13:23 | DS ---
Date/Time of Note Date/Time of Note DATE: 12/08/16 TIME: 13:20 Discharge Summary Admission/Discharge Info Admit Date/Time Nov 30, 2016 at 04:30 Discharge Date/Time Discharge Diagnosis Urinary tract infection Patient Condition: Fair Hx of Present Illness This is a 36-year-old male with a history of heroin overdose, anoxic brain injury who is chronically trach/vent dependent who was sent from assisted living facility for tachycardia. Patient is not able to provide history and as such information is gathered from chart review and from the ER physician. When patient presented to the ER, he was tachycardic with a heart rate in the 120s and 130s and was febrile with a temperature of 101.3. Chest x-ray was no active disease. CBC and CMP are unremarkable. Hospital Course Patient was admitted with sepsis. Blood cultures grew coag negative staph. He was treated with vancomycin but this was felt to be contaminant. TTE was performed showing normal EF and no valvular abnormalities. Urinalysis and culture suggestive of UTI for which he was treated with IV merrrem wiht excellent response. He was continued on mechanical ventilation and tube feeds. All signs of sepsis resolved and patient was discharged back to his long term Home Meds Unable to Obtain Active Prescriptions or Reported Meds Primary Care Provider MD ABRAM Coleman BENJAMIN K MD Dec 08, 2016 13:23
--- NOTE | 2016-12-08 14:09 | CONS ---
Date/Time of Note Date/Time of Note DATE: 12/08/16 TIME: 14:09 Consult Date/Type/Reason Admit Date/Time Nov 30, 2016 at 04:30 Initial Consult Date 12/02/16 Type of Consultation: ID Objective Vital Signs Date Time Temp Pulse Resp B/P Pulse Ox O2 Delivery O2 Flow Rate FiO2 12/08/16 12:41 78 12/08/16 11:05 99.5 18 141/87 97 12/08/16 05:31 35 Intake and Output 12/07/16 12/07/16 12/08/16 15:00 23:00 07:00 Intake Total 1100 ml 1112.5 ml Output Total 600 ml 600 ml Balance 500 ml 512.5 ml Results/Medications Result Diagram: 12/07/16 0341 12/07/16 034 Medications Current Medications Ondansetron HCl (Zofran Inj) 4 mg Q6H PRN IV NAUSEA AND/OR VOMITING Last administered on 11/30/16 21:12; Admin Dose 4 MG; Start 11/30/16 at 06:30 Acetaminophen (Tylenol Tab) 650 mg Q6H PRN PO PAIN LEVEL 1-3 OR FEVER Last administered on 12/05/16 00:49; Admin Dose 650 MG; Start 11/30/16 at 06:30 Acetaminophen (Tylenol Supp) 650 mg Q6H PRN [place] PAIN LEVEL 1-3 OR FEVER Last administered on 12/03/16 17:14; Admin Dose 650 MG; Start 11/30/16 at 06:30 Morphine Sulfate (morphine) 2 mg Q4H PRN IV PAIN LEVEL 7-10; Start 11/30/16 at 06:30 Enoxaparin Sodium (Lovenox) 40 mg DAILY SC Last administered on 12/08/16 08:40 ; Admin Dose 40 MG; Start 11/30/16 at 09:00 Miscellaneous Information [facility] This patient franklin... PRN PRN XX WOUND CARE; Start 11/30/16 at 10:30 Metoclopramide HCl (Reglan) 10 mg Q6H PRN IV N/V Last administered on 22:48; Admin Dose 10 MG; Start 11/30/16 at 22:00 Metoprolol Tartrate 25 mg 25 mg Q12 NGT Last administered on 12/08/16 08:32; Admin Dose 25 MG; Start 12/02/16 at 21:00 Vancomycin HCl 250 ml @ 62.5 mls/hr Q8H IVPB Last administered on 12/08/16 12 :37; Admin Dose 62.5 MLS/HR; Start 12/02/16 at 21:00 Meropenem/Sodium Chloride (Merrem 500mg/50 ml(Pmx)) 50 ml @ 100 mls/hr Q8 IVPB Last administered on 12/08/16 13:47; Admin Dose 100 MLS/HR; Start 12/03/16 at 15:00 Collagenase (Santyl) 1 applic DAILY TOP Last administered on 12/08/16 08:40; Admin Dose 1 APPLIC; Start 12/07/16 at 09:00 Hydralazine HCl (Apresoline) 10 mg Q6H PRN IV SBP > 180; Start 12/07/16 at 01: 00 Assessment/Plan Chief Complaint/Hosp Course SUBJECTIVE: No acute events overnight. The patient is lying comfortably in bed , afebrile. MICROBIOLOGY: Blood culture on admission grew coagulase-negative staph species with repeat blood cultures being negative. Urine culture on admission grew E. coli, ESBL and Pseudomonas aeruginosa. Stool for C. diff came back negative. DIAGNOSTICS: Chest x-ray on admission revealed no pneumonia. INDWELLINGS: Trach, PEG, Aceves. ANTIMICROBIALS: 1. Vancomycin. 2. Meropenem. PHYSICAL EXAMINATION: GENERAL: This is a chronically ill-appearing, middle-aged man who is in persistent vegetative state. HEENT: Head atraumatic, normocephalic. Sclerae anicteric. Buccal mucosa dry. NECK: Supple. CHEST: Rise symmetrical. Breath sounds diminished to bases. HEART: S1, S2. ABDOMEN: Soft, bowel tones present. EXTREMITIES: Without cyanosis. ASSESSMENT: 1. Status post sepsis. 2. Polymicrobial multi-drug resistant urinary tract infection. 3. Chronic respiratory failure. 4. Dysphagia. 5. Persistent vegetative state. PLAN: Remains stable. [place], continue Merrem for 2 more days, pending [facility] staff Problems: NARESH NAVARRO NP Dec 08, 2016 14:09
[2016-12-08] MEDS ORDERED: CLON0.5T26 G-TUBE (16:18)
[2016-12-08] MEDS ORDERED: DANT25CA PO (16:19)
[2016-12-08] MEDS ORDERED: ENOX40DI14 SC (16:21)
[2016-12-08] MEDS ORDERED: UDCOL GTB (16:21)
[2016-12-08] MEDS ORDERED: POLY17PO6 PO (16:22)
[2016-12-08] MEDS ORDERED: RANI150T9 GTB (16:23)
[2016-12-08] MEDS ORDERED: THIA100T56 GTB (16:24)
[2016-12-08] MEDS ORDERED: SENN-53 GTB (16:24)
[2016-12-08] MEDS ORDERED: [UNRECOGNIZED DRUG - CODE] GTB (16:25)
[2016-12-08] MEDS ORDERED: vit e GTB (16:26)
[2016-12-08] MEDS ORDERED: METO-448 GTB (16:27)
[2016-12-08] MEDS ORDERED: LEVE500S8 GTB (16:28)
[2016-12-08] MEDS ORDERED: [UNRECOGNIZED DRUG - OTHER] ORAL (16:30)
[2016-12-08] MEDS ORDERED: MAGN400O4 GTB (16:31)
[2016-12-08] MEDS ORDERED: BISA10SU75 PR (16:36)
[2016-12-08] MEDS ORDERED: fleet RECTAL (16:40)
[2016-12-08] MEDS ORDERED: UDMYL GTB (16:42)
[2016-12-08] MEDS ORDERED: LORA1TAB GTB (16:43)
[2016-12-08] MEDS ORDERED: ACET325T45 GTB ×2 (16:45→16:50)
[2016-12-08] MEDS ORDERED: ACET500C5 PO (16:48)
[2016-12-08] MEDS ORDERED: HYDR-906 GTB (16:49)
== END 2016-12-08 17:15 | DRG 870 ==
LOC: E/R 02:59 → TEL 04:30
PROVIDERS: ADMIT Internal Medicine; ATTEND Internal Medicine
PROC: 5A1955Z Respiratory Ventilation, Greater than 96 Consecutive Hours (ICD-10-PCS; principal; 2016-11-30)
DX: A41.2 Sepsis due to unspecified staphylococcus (principal); G93.1 Anoxic brain damage, not elsewhere classified; G93.49 Other encephalopathy; Z99.11 Dependence on respirator [ventilator] status; R40.3 Persistent vegetative state; J96.11 Chronic respiratory failure with hypoxia; L89.153 Pressure ulcer of sacral region, stage 3; E87.0 Hyperosmolality and hypernatremia; N39.0 Urinary tract infection, site not specified; Z43.1 Encounter for attention to gastrostomy; Z93.0 Tracheostomy status; E87.6 Hypokalemia; I10 Essential (primary) hypertension; B96.22 Other specified Shiga toxin-producing Escherichia coli [E. coli] [STEC] as the cause of diseases classified elsewhere; B96.5 Pseudomonas (aeruginosa) (mallei) (pseudomallei) as the cause of diseases classified elsewhere; Z16.12 Extended spectrum beta lactamase (ESBL) resistance; Z16.24 Resistance to multiple antibiotics
CPT/HCPCS: 36415; 36600; 71010; 74000; 80048; 80053; 80202; 81001; 82550; 82553; 82803; 82962; 83605; 83735; 84443; 84484; 85025; 85610; 85730; 87040; 87045; 87075; 87086; 90686; 93005; 93306; 94002; 94003; 96372; 96374; J0696; J1650; J2060; J2185; J2405; J2543; J2765; J2920; J3370; J3480; J7030; J7050